=== PATIENT | female | born 1935 | race Caucasian/White ===

== ENCOUNTER 2018-04-24 07:39 | Observation (INO) | payer MEDICARE, OTHER, SELFPAY ==
[2018-04-24] VITALS (22 sets, daily range): BP systolic 72–128; BP diastolic 41–86; PULSE 67–140; RESP 15–25; TEMP 36.3–37.2; O2SAT 94–100; BMI 25.1
--- NOTE | 2018-04-24 07:53 | DI.RAD.S_ITS ---
PROCEDURE: XR CHEST 1V INDICATIONS: 82 year-old female with chest pain. TECHNIQUE: One view of the chest was acquired. COMPARISON: [facility], , CHEST 1 VIEW, 11/09/2017, 13:02. [facility], , CHEST 1 VIEW, 10/23/2017, 12:57. [facility], , CHEST 1 VIEW, 11/12/2013, 15:47. FINDINGS: Surgical changes and devices: None. Lungs and pleura: No pleural effusions or pneumothorax. Lungs are clear. Mediastinum: Mediastinal contours appear normal. Heart size is normal. Bones and chest wall: No suspicious bony lesions. Overlying soft tissues appear unremarkable. IMPRESSION: No acute cardiopulmonary disease. Dictated by: Contreras Yates M.D. on 04/24/2018 at 8:51 Approved by: Contreras Yates M.D. on 04/24/2018 at 8:52
--- NOTE | 2018-04-24 07:57 | ED.ARRPALP ---
HPI - Arrhythmia/Palpitations General Chief Complaint: Arrhythmia/Palpitations Stated Complaint: CHEST PAIN Time Seen by Provider: 04/24/18 07:47 Source: patient Mode of arrival: ambulatory Limitations: no limitations History of Present Illness HPI narrative: Patient is an 82-year-old female presenting with chest pain. She has a history of angina and atrial fibrillation. She is noted to be in AFib. She says it started last night around 11:00 p.m. she bent over and then felt a chest discomfort. she actually took the nitro was not really able to sleep she still has a headache from the nitro. And complaining of chest discomfort all lightheadedness. No real dizziness. She denies feeling palpitations. She denies any cough or fever no nausea or vomiting Related Data Home Medications Medication Instructions Recorded Confirmed etanercept [Enbrel] 50 mg SQ QWEEKTH #0 11/12/07 04/24/18 methotrexate sodium 6 tab PO QWEEKFR #0 11/12/07 04/24/18 cyclosporine [Restasis] 1 drp OPHTH Q12H #0 10/23/17 04/24/18 melatonin 3 mg PO HSP PRN #0 10/23/17 04/24/18 aspirin 81 mg PO DAILY 04/24/18 04/24/18 cholecalciferol (vitamin D3) 1,000 unit PO DAILY 04/24/18 04/24/18 [Vitamin D3] folic acid 1 mg PO DAILY 04/24/18 04/24/18 meloxicam [Mobic] 7.5 mg PO EVERY OTHER DAY PRN 04/24/18 04/24/18 metoprolol succinate 50 mg PO BID 04/24/18 04/24/18 multivitamin 1 tab PO DAILY 04/24/18 04/24/18 nitroglycerin [Nitrostat] 0.4 mg SUBLINGUAL Q5M PRN 04/24/18 04/24/18 Allergies Allergy/AdvReac Type Severity Reaction Status Date / Time No Known Drug Allergies Allergy Verified 04/24/18 07:56 Review of Systems Review of Systems All systems reviewed & are unremarkable except as noted in HPI and below Constitutional Denies chills, Denies fever(s), Denies lethargy and Denies weakness Cardiovascular Reports as per HPI, Reports system reviewed and no additional complaints, except as docu, Denies dyspnea and Denies dyspnea on exertion Respiratory Denies cough, Denies dyspnea, Denies dyspnea on exertion and Denies wheezing Gastrointestinal Gastrointestinal: Denies abdominal pain, Denies change in bowel habits, Denies diarrhea, Denies nausea and Denies vomiting Musculoskeletal Denies back pain, Denies muscle weakness, Denies numbness and Denies tingling Integumentary/Breasts Denies pruritus, Denies erythema, Denies rash and Denies wounds Neurologic Denies numbness, Denies tingling and Denies weakness Allergic/Immunologic Denies wheezing PENDING SALE TO [facility] Medical History Angina at rest (Acute) Atrial fibrillation (Acute) Social History Smoking Status: Never smoker Exam Initial Vital Signs Initial Vital Signs: Vital Signs Temperature 97.8 F 04/24/18 07:50 Pulse Rate 140 H 04/24/18 07:50 Respiratory Rate 24 04/24/18 07:50 Blood Pressure 85/46 L 04/24/18 07:50 Pulse Oximetry 95 04/24/18 07:50 Const General: cooperative, healthy appearing and frail appearing [facility] Head: normal to inspection and normocephalic Resp Effort & Inspection: normal respiratory effort, able to speak in complete sentences, no respiratory distress and no use of accessory muscles Auscultation: clear to auscultation bilaterally, no rales, no rhonchi and no wheezes Cardio Rhythm: abnormal rhythm GI Inspection: normal to inspection Palpation: soft, No guarding and No tender Percussion: normal to percussion Auscultation: normal bowel sounds Skin General: no rashes or lesions noted and elasticity normal Lesions: no lesions Rashes: no rashes Trauma: no lacerations or abrasions Neuro General: alert, awake and oriented x3 Cranial Nerves: CN's II-XI intact bilaterally Procedures Procedural Sedation Indication: cardioversion ASA Class: I Preparation: operating room tech applied, pulse oximeter, capnometry used, supplemental O2 applied, suction/airway equipment at bedside and IV secured Ketamine: IV Ketamine dose (mg): 75 Time of Sedation (Min): 15 ED Sedation Level: Moderate (Concious) Patient Tolerated Procedure: Well Complications: none Course Hospital Course: PROCEDURE: electric cardioversion REASON FOR PROCEDURE: atrial fibrillation and hypotension PROCEDURE IN DETAIL: The procedure was explained to the patient with risks and benefits including risk of stroke. The patient understands. The pads applied in the anterior and posterior approach. With synchronized biphasic waveform at 100J, one shock was successful in restoring sinus rhythm, patient's heart rate immediately decreased to about 70's, blood pressure improved to a systolic 25. The patient had no immediate post-procedure complications. The rhythm was maintained and 12-lead EKG was requested. IMPRESSION: Successful cardioversion with scientologist of sinus rhythm from atrial fibrillation no immediate complication Orders Ordered: ED Orders 04/24/18 07:45 Complete Blood Count AUTO DIFF Stat Comprehensive Metabolic Panel Stat Magnesium Stat Partial Thromboplastin Time Stat Prothrombin Time INR Stat Troponin with CK Cardiac Panel Stat 04/24/18 07:53 XR chest 1V Stat EKG-12 Lead Stat 04/24/18 12:08 Education, smoking cessation ONGOING 04/24/18 12:09 MRSA PCR Stat 04/24/18 16:00 Troponin I Urgent 04/25/18 05:00 Complete Blood Count AUTO DIFF Routine Acetaminophen (Tylenol) 650 mg PO Q6HR PRN PRN Reason: As Needed for Fever/Mild Pain Al Hydrox/Mg Hydrox/Simethicone (Maalox Plus) 30 ml PO Q6HR PRN PRN Reason: Dyspepsia Aspirin (Aspirin Ec) 81 mg PO DAILY [facility] Enoxaparin Sodium (Lovenox) 50 mg 1 mg/kg (50 mg) SUBCUT Q12HR KAILEE Folic Acid (Folic Acid) 1 mg PO DAILY [facility] Sodium Chloride (Normal Saline 0.9%) 1,000 mls @ 100 mls/hr IV CONT KAILEE Stop: 05/24/18 17:59 Last Infusion: 04/24/18 10:44 Dose: 0 mls/hr Admin: 04/24/18 08:05 Dose: 150 mls/hr Magnesium Hydroxide (Milk Of Magnesia) 30 ml PO DAILY PRN PRN Reason: Constipation Melatonin (Melatonin) 3 mg PO BEDTIME PRN PRN Reason: sleep Metoprolol Succinate (Toprol Xl) 50 mg PO BID KAILEE Stored In Pharmacy 0 each PO PRN PRN PRN Reason: POLICY Discontinued Medications Acetaminophen (Tylenol) 650 mg PO NOW ONE Stop: 04/24/18 08:32 Last Admin: 04/24/18 08:33 Dose: 650 mg Diltiazem HCl (Cardizem) 10 mg IV NOW ONE Stop: 04/24/18 07:56 Last Admin: 04/24/18 08:06 Dose: 10 mg Etomidate (Amidate) 5 mg 0.1 mg/kg (5 mg) IV NOW ONE Stop: 04/24/18 09:40 Last Admin: 04/24/18 10:35 Dose: Not Given Ketamine HCl (Ketalar) 75 mg IV NOW ONE Stop: 04/24/18 09:43 Last Admin: 04/24/18 09:45 Dose: 75 mg Reevaluation(s) Reevaluation #1: Dr. Frank in ED for evaluation and admission. Will go to ICU Vital Signs - 8 hr 04/24/18 07:50 04/24/18 08:06 04/24/18 08:16 Temperature 97.8 F Pulse Rate 140 H 116 H 72 Respiratory Rate 24 16 Blood Pressure 85/46 L 99/57 L Blood Pressure [Right Arm] 72/49 L Pulse Oximetry 95 97 04/24/18 08:21 04/24/18 08:33 04/24/18 08:46 Temperature Pulse Rate 67 67 67 Respiratory Rate 15 16 Blood Pressure Blood Pressure [Right Arm] 83/57 L 87/43 L 91/53 L Pulse Oximetry 96 95 04/24/18 09:07 04/24/18 09:40 04/24/18 09:57 Temperature Pulse Rate 89 89 Respiratory Rate 17 18 Blood Pressure Blood Pressure [Right Arm] 96/47 L 90/48 L 128/86 H Pulse Oximetry 94 98 98 04/24/18 10:00 04/24/18 10:06 04/24/18 10:14 Temperature Pulse Rate 93 H 89 82 Respiratory Rate 18 21 22 Blood Pressure Blood Pressure [Right Arm] 125/71 H 107/59 L 103/53 L Pulse Oximetry 98 98 97 04/24/18 10:20 04/24/18 10:33 04/24/18 11:01 Temperature Pulse Rate 80 80 81 Respiratory Rate 19 18 15 Blood Pressure Blood Pressure [Right Arm] 89/49 L 83/46 L 83/51 L Pulse Oximetry 97 96 99 04/24/18 11:21 04/24/18 11:39 Temperature Pulse Rate 77 102 H Respiratory Rate 16 18 Blood Pressure 82/52 L Blood Pressure [Right Arm] 77/41 L Pulse Oximetry 100 100 MDM - Arrhythmia/Palpitations Differential Diagnosis Differential diagnosis: Likely palpitations, sinus tachycardia, artial fibrillation and artial flutter Medical Records Attestation: I reviewed the patient's medical records. Lab Data Attestation: I reviewed the patient's lab results. Result diagrams: 04/24/18 07:45 04/24/18 07:45 Lab Results 04/24/18 04/24/18 04/24/18 Range/Units 07:45 07:45 07:45 WBC 17.5 H (4.5-11.0) X10^3/uL RBC 4.32 (4.0-5.2) X10^6/uL Hgb 12.8 (12.0-16.0) g/dL Hct 38.7 (36-46) % MCV 89.6 (80-100) fL MCH 29.6 (26-34) PG MCHC 33.1 (30-36) % RDW 17.3 H (11.6-14.8) % Plt Count 186 (150-400) X10^3/uL Neut % (Auto) 87.5 H (50-75) % Lymph % (Auto) 5.9 L (25-40) % Colbert % (Auto) 6.1 (3-14) % Eos % (Auto) 0.1 L (2-4) % Baso % (Auto) 0.4 (0-2) % Neut # (Auto) 91609 H (5347-4938) /uL PT 12.2 (10.1-12.7) SECONDS INR 1.1 (0.9-1.3) APTT 32 (26.4-36.2) SECONDS Sodium 141 (137-145) mmol/L Potassium 4.0 (3.4-5.1) mmol/L Chloride 103 (98-107) mmol/L Carbon Dioxide 25 (22-32) mmol/L BUN 16 (7-17) mg/dL Creatinine 0.70 (0.52-1.04) mg/dL Estimated GFR > 60.0 (>60) mL/min BUN/Creatinine Ratio 22.9 H (6-22) Glucose 154 H (80-110) mg/dL Calcium 9.1 (8.4-10.2) mg/dL Magnesium 1.8 (1.6-2.3) mg/dL Total Bilirubin 0.9 (0.2-1.3) mg/dL AST 35 (14-36) IU/L ALT 27 (9-52) IU/L Alkaline Phosphatase 72 (38-126) U/L Total Creatine Kinase 30 (30-135) U/L Troponin I < 0.012 (0.01-0.034) ng/mL Total Protein 7.4 (6.3-8.2) g/dL Albumin 4.2 (3.5-5.0) g/dL Globulin 3.2 (1.7-4.1) g/dL Albumin/Globulin Ratio 1.3 (1.0-2.8) Imaging Data Chest x-ray: Attestation: I personally reviewed and interpreted this imaging study as follows: Radiologist's impression: PROCEDURE: XR CHEST 1V INDICATIONS: 82 year-old female with chest pain. TECHNIQUE: One view of the chest was acquired. COMPARISON: [facility], CHEST 1 VIEW, 11/09/2017, 13:02. [facility], CHEST 1 VIEW, 10/23/2017, 12:57. [facility], CHEST 1 VIEW, 11/12/2013, 15:47. FINDINGS: Surgical changes and devices: None. Lungs and pleura: No pleural effusions or pneumothorax. Lungs are clear. Mediastinum: Mediastinal contours appear normal. Heart size is normal. Bones and chest wall: No suspicious bony lesions. Overlying soft tissues appear unremarkable. IMPRESSION: No acute cardiopulmonary disease. Dictated by: Contreras Yates M.D. on 04/24/2018 at 8:51 ECG Data Attestation: I personally reviewed and interpreted this ECG as follows: Prior ECG tracings: available for review Interpretation: EKG 1. AFib rate 118 no acute ischemia previous EKGs show sinus rhythm though she does have a history of AFib EKG 2. AFib rate [address] changes EKG 3. Sinus a rhythm me a rate [address] changes And 2 EKG 4. Irregular rhythm AFib rate 108 MDM Narrative Medical decision making narrative: Patient initially was having chest discomfort with AFib with and hypotension. She continued to have chest discomfort and AFib despite Cardizem and IV fluids. Decision made to cardiovert. Blood pressure initially a improved likely with ketamine in a sinus rhythm. However her heart rate remains irregular and blood pressure still is low. She is given IV fluids. She will be admitted for further evaluation. She is not hypoxic room playing of shortness of breath. A PE is considered discuss this with the admitting physician. At this time no need for CT will re-evaluate. Discharge Plan Departure Patient Disposition: Admitted as Observation Clinical Impression: Atrial fibrillation, Acute hypotension Discharge Date/Time: 04/24/18 11:57 Interventions: ED Discharge Assessment Last Done: 04/24/18 11:39 Admit Date/Time: 04/24/18 11:30 Admit Provider: Jad Frank
[2018-04-24 08:04] LABS: INR 1.1 (0.9-1.3); Prothrombin Time 12.2 SECONDS (10.1-12.7)
[2018-04-24] MEDS: SODIUM CHLORIDE 0.9% 1,000 ML 150 ML IV (08:05)
[2018-04-24] MEDS: dilTIAZem 25 MG/5 ML SDV 10 MG IV (08:06)
[2018-04-24 08:07] LABS: PTT Partial Thromboplastin Tim 32 SECONDS (26.4-36.2)
[2018-04-24 08:09] LABS: Add Manual Diff / Slide Review NO; Alanine Aminotransferase 27 IU/L (9-52); Albumin 4.2 g/dL (3.5-5.0); Albumin Globulin Ratio 1.3 (1.0-2.8); Alkaline Phosphatase 72 U/L (38-126); Aspartate Aminotransferase 35 IU/L (14-36); BUN Creatinine Ratio 22.9 (6-22); Basophils Percent Auto 0.4 % (0-2); Bilirubin Total 0.9 mg/dL (0.2-1.3); Blood Urea Nitrogen 16 mg/dL (7-17); Calcium 9.1 mg/dL (8.4-10.2); Carbon Dioxide 25 mmol/L (22-32); Chloride 103 mmol/L (98-107); Creatine Kinase 30 U/L (30-135); Eosinophils Percent Auto 0.1 % (2-4); Estimated Glomerular Filt Rate > 60.0 mL/min (>60); Globulin 3.2 g/dL (1.7-4.1); Glucose 154 mg/dL (80-110); HEMOLYSIS 35 (0-50); Hematocrit 38.7 % (36-46); Hemoglobin 12.8 g/dL (12.0-16.0); Lymphocytes Percent Auto 5.9 % (25-40); Magnesium 1.8 mg/dL (1.6-2.3); Mean Corpuscular HGB Conc 33.1 % (30-36); Mean Corpuscular Hemoglobin 29.6 PG (26-34); Mean Corpuscular Volume 89.6 fL (80-100); Monocytes Percent Auto 6.1 % (3-14); Neutrophils Absolute Auto 15300 /uL (3000-5900); Neutrophils Percent Auto 87.5 % (50-75); Platelet Count 186 X10^3/uL (150-400); Red Blood Cell Count 4.32 X10^6/uL (4.0-5.2); Red Cell Distribution Width 17.3 % (11.6-14.8); Sodium 141 mmol/L (137-145); Total Protein 7.4 g/dL (6.3-8.2); White Blood Cell Count 17.5 X10^3/uL (4.5-11.0)
[2018-04-24 08:26] LABS: Troponin I < 0.012 ng/mL (0.01-0.034)
[2018-04-24] MEDS: ACETAMINOPHEN 325 MG TABLET 650 MG PO ×3 (08:33→19:46)
--- NOTE | 2018-04-24 09:02 | ED_ITS ---
HPI - Arrhythmia/Palpitations General Chief Complaint: Arrhythmia/Palpitations Stated Complaint: CHEST PAIN Time Seen by Provider: 04/24/18 07:47 Source: patient Mode of arrival: ambulatory Limitations: no limitations History of Present Illness HPI narrative: Patient is an 82-year-old female presenting with chest pain. She has a history of angina and atrial fibrillation. She is noted to be in AFib. She says it started last night around 11:00 p.m. she bent over and then felt a chest discomfort. she actually took the nitro was not really able to sleep she still has a headache from the nitro. And complaining of chest discomfort all lightheadedness. No real dizziness. She denies feeling palpitations. She denies any cough or fever no nausea or vomiting Related Data Home Medications Medication Instructions Recorded Confirmed etanercept [Enbrel] 50 mg SQ QWEEKTH #0 11/12/07 04/24/18 methotrexate sodium 6 tab PO QWEEKFR #0 11/12/07 04/24/18 cyclosporine [Restasis] 1 drp OPHTH Q12H #0 10/23/17 04/24/18 melatonin 3 mg PO HSP PRN #0 10/23/17 04/24/18 aspirin 81 mg PO DAILY 04/24/18 04/24/18 cholecalciferol (vitamin D3) 1,000 unit PO DAILY 04/24/18 04/24/18 [Vitamin D3] folic acid 1 mg PO DAILY 04/24/18 04/24/18 meloxicam [Mobic] 7.5 mg PO EVERY OTHER DAY PRN 04/24/18 04/24/18 metoprolol succinate 50 mg PO BID 04/24/18 04/24/18 multivitamin 1 tab PO DAILY 04/24/18 04/24/18 nitroglycerin [Nitrostat] 0.4 mg SUBLINGUAL Q5M PRN 04/24/18 04/24/18 Allergies Allergy/AdvReac Type Severity Reaction Status Date / Time No Known Drug Allergies Allergy Verified 04/24/18 07:56 Review of Systems Review of Systems All systems reviewed & are unremarkable except as noted in HPI and below Constitutional Denies chills, Denies fever(s), Denies lethargy and Denies weakness Cardiovascular Reports as per HPI, Reports system reviewed and no additional complaints, except as docu, Denies dyspnea and Denies dyspnea on exertion Respiratory Denies cough, Denies dyspnea, Denies dyspnea on exertion and Denies wheezing Gastrointestinal Gastrointestinal: Denies abdominal pain, Denies change in bowel habits, Denies diarrhea, Denies nausea and Denies vomiting Musculoskeletal Denies back pain, Denies muscle weakness, Denies numbness and Denies tingling Integumentary/Breasts Denies pruritus, Denies erythema, Denies rash and Denies wounds Neurologic Denies numbness, Denies tingling and Denies weakness Allergic/Immunologic Denies wheezing PENDING SALE TO [facility] Medical History Angina at rest (Acute) Atrial fibrillation (Acute) Social History Smoking Status: Never smoker Exam Initial Vital Signs Initial Vital Signs: Vital Signs Temperature 97.8 F 04/24/18 07:50 Pulse Rate 140 H 04/24/18 07:50 Respiratory Rate 24 04/24/18 07:50 Blood Pressure 85/46 L 04/24/18 07:50 Pulse Oximetry 95 04/24/18 07:50 Const General: cooperative, healthy appearing and frail appearing [facility] Head: normal to inspection and normocephalic Resp Effort & Inspection: normal respiratory effort, able to speak in complete sentences, no respiratory distress and no use of accessory muscles Auscultation: clear to auscultation bilaterally, no rales, no rhonchi and no wheezes Cardio Rhythm: abnormal rhythm GI Inspection: normal to inspection Palpation: soft, No guarding and No tender Percussion: normal to percussion Auscultation: normal bowel sounds Skin General: no rashes or lesions noted and elasticity normal Lesions: no lesions Rashes: no rashes Trauma: no lacerations or abrasions Neuro General: alert, awake and oriented x3 Cranial Nerves: CN's II-XI intact bilaterally Procedures Procedural Sedation Indication: cardioversion ASA Class: I Preparation: panel monitor applied, pulse oximeter, capnometry used, supplemental O2 applied, suction/airway equipment at bedside and IV secured Ketamine: IV Ketamine dose (mg): 75 Time of Sedation (Min): 15 ED Sedation Level: Moderate (Concious) Patient Tolerated Procedure: Well Complications: none Course Hospital Course: PROCEDURE: electric cardioversion REASON FOR PROCEDURE: atrial fibrillation and hypotension PROCEDURE IN DETAIL: The procedure was explained to the patient with risks and benefits including risk of stroke. The patient understands. The pads applied in the anterior and posterior approach. With synchronized biphasic waveform at 100J , one shock was successful in restoring sinus rhythm, patient's heart rate immediately decreased to about 70's, blood pressure improved to a systolic 25. The patient had no immediate post-procedure complications. The rhythm was maintained and 12-lead EKG was requested. IMPRESSION: Successful cardioversion with amish of sinus rhythm from atrial fibrillation no immediate complication Orders Ordered: ED Orders 04/24/18 07:45 Complete Blood Count AUTO DIFF Stat Comprehensive Metabolic Panel Stat Magnesium Stat Partial Thromboplastin Time Stat Prothrombin Time INR Stat Troponin with CK Cardiac Panel Stat 04/24/18 07:53 XR chest 1V Stat EKG-12 Lead Stat 04/24/18 12:08 Education, smoking cessation ONGOING 04/24/18 12:09 MRSA PCR Stat 04/24/18 16:00 Troponin I Urgent 04/25/18 05:00 Complete Blood Count AUTO DIFF Routine Acetaminophen (Tylenol) 650 mg PO Q6HR PRN PRN Reason: As Needed for Fever/Mild Pain Al Hydrox/Mg Hydrox/Simethicone (Maalox Plus) 30 ml PO Q6HR PRN PRN Reason: Dyspepsia Aspirin (Aspirin Ec) 81 mg PO DAILY [facility] Enoxaparin Sodium (Lovenox) 50 mg 1 mg/kg (50 mg) SUBCUT Q12HR KAILEE Folic Acid (Folic Acid) 1 mg PO DAILY [facility] Sodium Chloride (Normal Saline 0.9%) 1,000 mls @ 100 mls/hr IV CONT KAILEE Stop: 05/24/18 17:59 Last Infusion: 04/24/18 10:44 Dose: 0 mls/hr Admin: 04/24/18 08:05 Dose: 150 mls/hr Magnesium Hydroxide (Milk Of Magnesia) 30 ml PO DAILY PRN PRN Reason: Constipation Melatonin (Melatonin) 3 mg PO BEDTIME PRN PRN Reason: sleep Metoprolol Succinate (Toprol Xl) 50 mg PO BID KAILEE Stored In Pharmacy 0 each PO PRN PRN PRN Reason: POLICY Discontinued Medications Acetaminophen (Tylenol) 650 mg PO NOW ONE Stop: 04/24/18 08:32 Last Admin: 04/24/18 08:33 Dose: 650 mg Diltiazem HCl (Cardizem) 10 mg IV NOW ONE Stop: 04/24/18 07:56 Last Admin: 04/24/18 08:06 Dose: 10 mg Etomidate (Amidate) 5 mg 0.1 mg/kg (5 mg) IV NOW ONE Stop: 04/24/18 09:40 Last Admin: 04/24/18 10:35 Dose: Not Given Ketamine HCl (Ketalar) 75 mg IV NOW ONE Stop: 04/24/18 09:43 Last Admin: 04/24/18 09:45 Dose: 75 mg Reevaluation(s) Reevaluation #1: Dr. rFank in ED for evaluation and admission. Will go to ICU Vital Signs - 8 hr 04/24/18 07:50 04/24/18 08:06 04/24/18 08:16 Temperature 97.8 F Pulse Rate 140 H 116 H 72 Respiratory Rate 24 16 Blood Pressure 85/46 L 99/57 L Blood Pressure [Right Arm] 72/49 L Pulse Oximetry 95 97 04/24/18 08:21 04/24/18 08:33 04/24/18 08:46 Temperature Pulse Rate 67 67 67 Respiratory Rate 15 16 Blood Pressure Blood Pressure [Right Arm] 83/57 L 87/43 L 91/53 L Pulse Oximetry 96 95 04/24/18 09:07 04/24/18 09:40 04/24/18 09:57 Temperature Pulse Rate 89 89 Respiratory Rate 17 18 Blood Pressure Blood Pressure [Right Arm] 96/47 L 90/48 L 128/86 H Pulse Oximetry 94 98 98 04/24/18 10:00 04/24/18 10:06 04/24/18 10:14 Temperature Pulse Rate 93 H 89 82 Respiratory Rate 18 21 22 Blood Pressure Blood Pressure [Right Arm] 125/71 H 107/59 L 103/53 L Pulse Oximetry 98 98 97 04/24/18 10:20 04/24/18 10:33 04/24/18 11:01 Temperature Pulse Rate 80 80 81 Respiratory Rate 19 18 15 Blood Pressure Blood Pressure [Right Arm] 89/49 L 83/46 L 83/51 L Pulse Oximetry 97 96 99 04/24/18 11:21 04/24/18 11:39 Temperature Pulse Rate 77 102 H Respiratory Rate 16 18 Blood Pressure 82/52 L Blood Pressure [Right Arm] 77/41 L Pulse Oximetry 100 100 MDM - Arrhythmia/Palpitations Differential Diagnosis Differential diagnosis: Likely palpitations, sinus tachycardia, artial fibrillation and artial flutter Medical Records Attestation: I reviewed the patient's medical records. Lab Data Attestation: I reviewed the patient's lab results. Result diagrams: 04/24/18 07:45 04/24/18 07:45 Lab Results 04/24/18 04/24/18 04/24/18 Range/Units 07:45 07:45 07:45 WBC 17.5 H (4.5-11.0) X10^3/uL RBC 4.32 (4.0-5.2) X10^6/uL Hgb 12.8 (12.0-16.0) g/dL Hct 38.7 (36-46) % MCV 89.6 (80-100) fL MCH 29.6 (26-34) PG MCHC 33.1 (30-36) % RDW 17.3 H (11.6-14.8) % Plt Count 186 (150-400) X10^3/uL Neut % (Auto) 87.5 H (50-75) % Lymph % (Auto) 5.9 L (25-40) % Bowie % (Auto) 6.1 (3-14) % Eos % (Auto) 0.1 L (2-4) % Baso % (Auto) 0.4 (0-2) % Neut # (Auto) 94097 H (7627-6422) /uL PT 12.2 (10.1-12.7) SECONDS INR 1.1 (0.9-1.3) APTT 32 (26.4-36.2) SECONDS Sodium 141 (137-145) mmol/L Potassium 4.0 (3.4-5.1) mmol/L Chloride 103 (98-107) mmol/L Carbon Dioxide 25 (22-32) mmol/L BUN 16 (7-17) mg/dL Creatinine 0.70 (0.52-1.04) mg/dL Estimated GFR > 60.0 (>60) mL/min BUN/Creatinine Ratio 22.9 H (6-22) Glucose 154 H (80-110) mg/dL Calcium 9.1 (8.4-10.2) mg/dL Magnesium 1.8 (1.6-2.3) mg/dL Total Bilirubin 0.9 (0.2-1.3) mg/dL AST 35 (14-36) IU/L ALT 27 (9-52) IU/L Alkaline Phosphatase 72 (38-126) U/L Total Creatine Kinase 30 (30-135) U/L Troponin I < 0.012 (0.01-0.034) ng/mL Total Protein 7.4 (6.3-8.2) g/dL Albumin 4.2 (3.5-5.0) g/dL Globulin 3.2 (1.7-4.1) g/dL Albumin/Globulin Ratio 1.3 (1.0-2.8) Imaging Data Chest x-ray: Attestation: I personally reviewed and interpreted this imaging study as follows: Radiologist's impression: PROCEDURE: XR CHEST 1V INDICATIONS: 82 year-old female with chest pain. TECHNIQUE: One view of the chest was acquired. COMPARISON: [facility], CHEST 1 VIEW, 11/09/2017, 13:02. [facility], CHEST 1 VIEW, 10/23/2017, 12:57. [facility], CHEST 1 VIEW, 11/12/2013 , 15:47. FINDINGS: Surgical changes and devices: None. Lungs and pleura: No pleural effusions or pneumothorax. Lungs are clear. Mediastinum: Mediastinal contours appear normal. Heart size is normal. Bones and chest wall: No suspicious bony lesions. Overlying soft tissues appear unremarkable. IMPRESSION: No acute cardiopulmonary disease. Dictated by: Contreras Yates M.D. on 04/24/2018 at 8:51 ECG Data Attestation: I personally reviewed and interpreted this ECG as follows: Prior ECG tracings: available for review Interpretation: EKG 1. AFib rate 118 no acute ischemia previous EKGs show sinus rhythm though she does have a history of AFib EKG 2. AFib rate [address] changes EKG 3. Sinus a rhythm me a rate [address] changes And 2 EKG 4. Irregular rhythm AFib rate 108 MDM Narrative Medical decision making narrative: Patient initially was having chest discomfort with AFib with and hypotension. She continued to have chest discomfort and AFib despite Cardizem and IV fluids. Decision made to cardiovert. Blood pressure initially a improved likely with ketamine in a sinus rhythm. However her heart rate remains irregular and blood pressure still is low. She is given IV fluids. She will be admitted for further evaluation. She is not hypoxic room playing of shortness of breath. A PE is considered discuss this with the admitting physician. At this time no need for CT will re- evaluate. Discharge Plan Departure Patient Disposition: Admitted as Observation Clinical Impression: Atrial fibrillation, Acute hypotension Discharge Date/Time: 04/24/18 11:57 Interventions: ED Discharge Assessment Last Done: 04/24/18 11:39 Admit Date/Time: 04/24/18 11:30 Admit Provider: Jad Frank
[2018-04-24] MEDS: KETAMINE 500 MG/10 ML INJ 75 MG IV (09:45)
[2018-04-24] MEDS: ENOXAPARIN 60 MG/0.6 ML SYRINGE 50 MG SUBCUT (13:25)
--- NOTE | 2018-04-24 15:12 | PM.HP.1 ---
History of Present Illness Chief complaint: Atrial fibrillation, Acute hypotension Narrative: Nola Garcia is a 82 year old female patient of Dr. Evaristo Obregon with history of paroxysmal atrial fibrillation presented to emergency department with chest pain. She states chest pain started around 11:00 p.m. last night as she bent over. She took 2 tablets of nitroglycerin without real relief. She had pain in her neck or back during much of the night with little sleep. This morning she had more pain in her chest. On a ER presentation she was noted to be in atrial fibrillation with RVR and also hypertensive with systolic blood pressure in the 70s. She had cardioversion in the ER with conversion to sinus rhythm. Subsequently her blood pressure remained low in the 80 systolic but eventually up to 90 systolic after 2 L normal saline. Patient denies fevers, cough, shortness of breath, chills, abdominal pain, urinary symptoms. She has had prior evaluation for chest pain including myocardial perfusion stress test in October 2017 which was read as normal. Security System Administrator did not think pain was due to occlusive coronary artery disease. Patient states she gets atrial fibrillation episodes only occasionally, manifested by palpitations, which last brief periods of time. Patient History Medical History Atrial fibrillation (Acute) H/O: hysterectomy (Acute) 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) Hypertension (Acute) Rheumatoid arthritis (Acute) Surgical History History of total right knee replacement (Acute) Family & Social History Family History: Reviewed 04/24/18 by Jad Frank MD Social History: household members spouse Prior Living Arrangements House Safety & Behavioral: Feels Safe in Current Yes Environment Been Physically Hurt or No Threatened By a Person Suicidal Ideation Description None Suicide Plan Description No Plan Tobacco & Substance use: Smoking Status Never smoker alcohol intake frequency holiday/special occasion Substance Use Type does not use Meds Home Medications Medication Instructions Recorded Confirmed Type etanercept [Enbrel] 50 mg SQ QWEEKTH #0 11/12/07 04/24/18 History methotrexate sodium 6 tab PO QWEEKFR #0 11/12/07 04/24/18 History cyclosporine [Restasis] 1 drp OPHTH Q12H #0 10/23/17 04/24/18 History melatonin 3 mg PO HSP PRN #0 10/23/17 04/24/18 History aspirin 81 mg PO DAILY 04/24/18 04/24/18 History cholecalciferol (vitamin D3) 1,000 unit PO DAILY 04/24/18 04/24/18 History [Vitamin D3] folic acid 1 mg PO DAILY 04/24/18 04/24/18 History meloxicam [Mobic] 7.5 mg PO EVERY OTHER DAY PRN 04/24/18 04/24/18 History metoprolol succinate 50 mg PO BID 04/24/18 04/24/18 History multivitamin 1 tab PO DAILY 04/24/18 04/24/18 History nitroglycerin [Nitrostat] 0.4 mg SUBLINGUAL Q5M PRN 04/24/18 04/24/18 History Allergies Allergy/AdvReac Type Severity Reaction Status Date / Time No Known Drug Allergies Allergy Verified 04/24/18 07:56 Review of Systems Review of Systems All systems reviewed & are unremarkable except as noted in HPI and below Exam Vital Signs (past 8 hours): Vital Signs - 8 hr 04/24/18 07:50 04/24/18 08:06 04/24/18 08:16 Temperature 97.8 F Pulse Rate 140 H 116 H 72 Respiratory Rate 24 16 Blood Pressure 85/46 L 99/57 L Blood Pressure [Right Arm] 72/49 L Pulse Oximetry 95 97 04/24/18 08:21 04/24/18 08:33 04/24/18 08:46 Temperature Pulse Rate 67 67 67 Respiratory Rate 15 16 Blood Pressure Blood Pressure [Right Arm] 83/57 L 87/43 L 91/53 L Pulse Oximetry 96 95 04/24/18 09:07 04/24/18 09:40 04/24/18 09:57 Temperature Pulse Rate 89 89 Respiratory Rate 17 18 Blood Pressure Blood Pressure [Right Arm] 96/47 L 90/48 L 128/86 H Pulse Oximetry 94 98 98 04/24/18 10:00 04/24/18 10:06 04/24/18 10:14 Temperature Pulse Rate 93 H 89 82 Respiratory Rate 18 21 22 Blood Pressure Blood Pressure [Right Arm] 125/71 H 107/59 L 103/53 L Pulse Oximetry 98 98 97 04/24/18 10:20 04/24/18 10:33 05/29/18 11:01 Temperature Pulse Rate 80 80 81 Respiratory Rate 19 18 15 Blood Pressure Blood Pressure [Right Arm] 89/49 L 83/46 L 83/51 L Pulse Oximetry 97 96 99 04/24/18 11:21 04/24/18 11:39 04/24/18 12:35 Temperature 99 F Pulse Rate 77 102 H 78 Respiratory Rate 16 18 15 Blood Pressure 82/52 L 97/44 L Blood Pressure [Right Arm] 77/41 L Pulse Oximetry 100 100 94 Pulse Oximetry 94 Oxygen Delivery Method Room Air Oxygen Flow Rate 0 Narrative Exam Narrative: GENERAL: This is an alert female currently in no acute distress HEAD: Atraumatic. Normocephalic. EYES: Pupils equal, round and reactive. Extraocular motions intact. No scleral icterus. No injection or drainage. OROPHARYNX: moist mucosa NECK: Trachea midline. No JVD or lymphadenopathy. CARDIOVASCULAR: Regular rate and rhythm without murmurs, gallops, or rubs. RESPIRATORY: Clear to auscultation bilaterally. GASTROINTESTINAL: Abdomen nondistended, soft, non-tender. No hepato-splenomegaly, or palpable masses. EXTREMITIES: No edema. NEUROLOGICAL: Alert, well oriented, speech is intact, normal bilateral upper and lower extremity strength SKIN: warm, dry, no rash Objective Labs Result Diagrams: 04/24/18 07:45 04/24/18 07:45 Labs: Laboratory Results - last 24 hr 04/24/18 04/24/18 04/24/18 07:45 07:45 07:45 WBC 17.5 H RBC 4.32 Hgb 12.8 Hct 38.7 MCV 89.6 MCH 29.6 MCHC 33.1 RDW 17.3 H Plt Count 186 Neut % (Auto) 87.5 H Lymph % (Auto) 5.9 L [place] % (Auto) 6.1 Eos % (Auto) 0.1 L Baso % (Auto) 0.4 Neut # (Auto) 86722 H PT 12.2 INR 1.1 APTT 32 Sodium 141 Potassium 4.0 Chloride 103 Carbon Dioxide 25 BUN 16 Creatinine 0.70 Estimated GFR > 60.0 BUN/Creatinine Ratio 22.9 H Glucose 154 H Calcium 9.1 Magnesium 1.8 Total Bilirubin 0.9 AST 35 ALT 27 Alkaline Phosphatase 72 Total Creatine Kinase 30 Troponin I < 0.012 Total Protein 7.4 Albumin 4.2 Globulin 3.2 Albumin/Globulin Ratio 1.3 Nasal Screen MRSA (PCR) 04/24/18 12:09 WBC RBC Hgb Hct MCV MCH MCHC RDW Plt Count Neut % (Auto) Lymph % (Auto) [place] % (Auto) Eos % (Auto) Baso % (Auto) Neut # (Auto) PT INR APTT Sodium Potassium Chloride Carbon Dioxide BUN Creatinine Estimated GFR BUN/Creatinine Ratio Glucose Calcium Magnesium Total Bilirubin AST ALT Alkaline Phosphatase Total Creatine Kinase Troponin I Total Protein Albumin Globulin Albumin/Globulin Ratio Nasal Screen MRSA (PCR) Negative for mrsa Chest x-ray: No acute cardiopulmonary disease EKG 1: Atrial fibrillation with RVR, no ST or T-wave changes EKG 2.: Sinus rhythm, no ST or T-wave changes Assessment & Plan Plan: Plan: 1. Paroxysmal atrial fibrillation with RVR: Patient presented symptomatic with chest pain and hypotension. She was successfully cardioverted in the ER. She had persistent hypotension which is responding to IV fluids. Continue telemetry monitoring and IV fluids at 100 cc/hour. Previous echo with normal LV function and no significant valvular disease. 2. Chest pain: Patient has history of noncardiac chest pain with a normal myocardial perfusion stress test in October 2017. On the floor she has continued to have some intermittent chest pain without EKG changes. It is nonpleuritic. Repeat troponin ordered for 4:00 p.m.. Cardiac or pulmonary embolism source seems highly unlikely. 3. Acute leukocytosis: WBC 17 K. There is no obvious symptoms or source of infection. This is more likely acute stress reaction. Repeat CBC ordered for a.m.. 4. Disposition: Observation status. Quality VTE Deep Vein Thrombosis/Pulmonary Embolism Present on Admission: No
--- NOTE | 2018-04-24 15:15 | P.HP_ITS ---
History of Present Illness Chief complaint: Atrial fibrillation, Acute hypotension Narrative: Nola Garcia is a 82 year old female patient of Dr. Evaristo Obregon with history of paroxysmal atrial fibrillation presented to emergency department with chest pain. She states chest pain started around 11:00 p.m. last night as she bent over. She took 2 tablets of nitroglycerin without real relief. She had pain in her neck or back during much of the night with little sleep. This morning she had more pain in her chest. On a ER presentation she was noted to be in atrial fibrillation with RVR and also hypertensive with systolic blood pressure in the 70s. She had cardioversion in the ER with conversion to sinus rhythm. Subsequently her blood pressure remained low in the 80 systolic but eventually up to 90 systolic after 2 L normal saline. Patient denies fevers, cough, shortness of breath, chills, abdominal pain, urinary symptoms. She has had prior evaluation for chest pain including myocardial perfusion stress test in October 2017 which was read as normal. Repair Order Clerk did not think pain was due to occlusive coronary artery disease. Patient states she gets atrial fibrillation episodes only occasionally, manifested by palpitations , which last brief periods of time. Patient History Medical History Atrial fibrillation (Acute) H/O: hysterectomy (Acute) 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) Hypertension (Acute) Rheumatoid arthritis (Acute) Surgical History History of total right knee replacement (Acute) Family & Social History Family History: Reviewed 04/24/18 by Jad Frank MD Social History: household members spouse Prior Living Arrangements House Safety & Behavioral: Feels Safe in Current Yes Environment Been Physically Hurt or No Threatened By a Person Suicidal Ideation Description None Suicide Plan Description No Plan Tobacco & Substance use: Smoking Status Never smoker alcohol intake frequency holiday/special occasion Substance Use Type does not use Meds Home Medications Medication Instructions Recorded Confirmed Type etanercept [Enbrel] 50 mg SQ QWEEKTH #0 11/12/07 04/24/18 History methotrexate sodium 6 tab PO QWEEKFR #0 11/12/07 04/24/18 History cyclosporine [Restasis] 1 drp OPHTH Q12H #0 10/23/17 04/24/18 History melatonin 3 mg PO HSP PRN #0 10/23/17 04/24/18 History aspirin 81 mg PO DAILY 04/24/18 04/24/18 History cholecalciferol (vitamin D3) 1,000 unit PO DAILY 04/24/18 04/24/18 History [Vitamin D3] folic acid 1 mg PO DAILY 04/24/18 04/24/18 History meloxicam [Mobic] 7.5 mg PO EVERY OTHER DAY PRN 04/24/18 04/24/18 History metoprolol succinate 50 mg PO BID 04/24/18 04/24/18 History multivitamin 1 tab PO DAILY 04/24/18 04/24/18 History nitroglycerin [Nitrostat] 0.4 mg SUBLINGUAL Q5M PRN 04/24/18 04/24/18 History Allergies Allergy/AdvReac Type Severity Reaction Status Date / Time No Known Drug Allergies Allergy Verified 04/24/18 07:56 Review of Systems Review of Systems All systems reviewed & are unremarkable except as noted in HPI and below Exam Vital Signs (past 8 hours): Vital Signs - 8 hr 3 04/24/18 07:50 04/24/18 08:06 04/24/18 08:16 Temperature 97.8 F Pulse Rate 140 H 116 H 72 Respiratory Rate 24 16 Blood Pressure 85/46 L 99/57 L Blood Pressure [Right Arm] 72/49 L Pulse Oximetry 95 97 3 04/24/18 08:21 04/24/18 08:33 04/24/18 08:46 Temperature Pulse Rate 67 67 67 Respiratory Rate 15 16 Blood Pressure Blood Pressure [Right Arm] 83/57 L 87/43 L 91/53 L Pulse Oximetry 96 95 3 04/24/18 09:07 04/24/18 09:40 04/24/18 09:57 Temperature Pulse Rate 89 89 Respiratory Rate 17 18 Blood Pressure Blood Pressure [Right Arm] 96/47 L 90/48 L 128/86 H Pulse Oximetry 94 98 98 3 04/24/18 10:00 04/24/18 10:06 04/24/18 10:14 Temperature Pulse Rate 93 H 89 82 Respiratory Rate 18 21 22 Blood Pressure Blood Pressure [Right Arm] 125/71 H 107/59 L 103/53 L Pulse Oximetry 98 98 97 3 04/24/18 10:20 04/24/18 10:33 04/24/18 11:01 Temperature Pulse Rate 80 80 81 Respiratory Rate 19 18 15 Blood Pressure Blood Pressure [Right Arm] 89/49 L 83/46 L 83/51 L Pulse Oximetry 97 96 99 3 04/24/18 11:21 04/24/18 11:39 04/24/18 12:35 Temperature 99 F Pulse Rate 77 102 H 78 Respiratory Rate 16 18 15 Blood Pressure 82/52 L 97/44 L Blood Pressure [Right Arm] 77/41 L Pulse Oximetry 100 100 94 Pulse Oximetry 94 Oxygen Delivery Method Room Air Oxygen Flow Rate 0 Narrative Exam Narrative: GENERAL: This is an alert female currently in no acute distress HEAD: Atraumatic. Normocephalic. EYES: Pupils equal, round and reactive. Extraocular motions intact. No scleral icterus. No injection or drainage. OROPHARYNX: moist mucosa NECK: Trachea midline. No JVD or lymphadenopathy. CARDIOVASCULAR: Regular rate and rhythm without murmurs, gallops, or rubs. RESPIRATORY: Clear to auscultation bilaterally. GASTROINTESTINAL: Abdomen nondistended, soft, non-tender. No hepato- splenomegaly, or palpable masses. EXTREMITIES: No edema. NEUROLOGICAL: Alert, well oriented, speech is intact, normal bilateral upper and lower extremity strength SKIN: warm, dry, no rash Objective Labs Result Diagrams: 04/24/18 07:45 04/24/18 07:45 Labs: Laboratory Results - last 24 hr 04/24/18 04/24/18 04/24/18 07:45 07:45 07:45 WBC 17.5 H RBC 4.32 Hgb 12.8 Hct 38.7 MCV 89.6 MCH 29.6 MCHC 33.1 RDW 17.3 H Plt Count 186 Neut % (Auto) 87.5 H Lymph % (Auto) 5.9 L [place] % (Auto) 6.1 Eos % (Auto) 0.1 L Baso % (Auto) 0.4 Neut # (Auto) 78362 H PT 12.2 INR 1.1 APTT 32 Sodium 141 Potassium 4.0 Chloride 103 Carbon Dioxide 25 BUN 16 Creatinine 0.70 Estimated GFR > 60.0 BUN/Creatinine Ratio 22.9 H Glucose 154 H Calcium 9.1 Magnesium 1.8 Total Bilirubin 0.9 AST 35 ALT 27 Alkaline Phosphatase 72 Total Creatine Kinase 30 Troponin I < 0.012 Total Protein 7.4 Albumin 4.2 Globulin 3.2 Albumin/Globulin Ratio 1.3 Nasal Screen MRSA (PCR) 04/24/18 12:09 WBC RBC Hgb Hct MCV MCH MCHC RDW Plt Count Neut % (Auto) Lymph % (Auto) [place] % (Auto) Eos % (Auto) Baso % (Auto) Neut # (Auto) PT INR APTT Sodium Potassium Chloride Carbon Dioxide BUN Creatinine Estimated GFR BUN/Creatinine Ratio Glucose Calcium Magnesium Total Bilirubin AST ALT Alkaline Phosphatase Total Creatine Kinase Troponin I Total Protein Albumin Globulin Albumin/Globulin Ratio Nasal Screen MRSA (PCR) Negative for mrsa Chest x-ray: No acute cardiopulmonary disease EKG 1: Atrial fibrillation with RVR, no ST or T-wave changes EKG 2.: Sinus rhythm, no ST or T-wave changes Assessment & Plan Plan: Plan: 1. Paroxysmal atrial fibrillation with RVR: Patient presented symptomatic with chest pain and hypotension. She was successfully cardioverted in the ER. She had persistent hypotension which is responding to IV fluids. Continue telemetry monitoring and IV fluids at 100 cc/hour. Previous echo with normal LV function and no significant valvular disease. 2. Chest pain: Patient has history of noncardiac chest pain with a normal myocardial perfusion stress test in October 2017. On the floor she has continued to have some intermittent chest pain without EKG changes. It is nonpleuritic. Repeat troponin ordered for 4:00 p.m.. Cardiac or pulmonary embolism source seems highly unlikely. 3. Acute leukocytosis: WBC 17 K. There is no obvious symptoms or source of infection. This is more likely acute stress reaction. Repeat CBC ordered for a.m.. 4. Disposition: Observation status. Quality VTE Deep Vein Thrombosis/Pulmonary Embolism Present on Admission: No
[2018-04-24 17:21] LABS: Troponin I < 0.012 ng/mL (0.01-0.034)
[2018-04-24] MEDS: METOPROLOL ER 50 MG TABLET PO (20:20)
--- NOTE | 2018-04-24 21:43 | PC.NURSE ---
Patient's heart rate increased to 133 and remained in the 120's from 1991-0612. cafeteria monitor showed sinus tachycardia. During this time patient was repositioned and attempted a valsalva maneuver. Patient remained asymptomatic throughout episode. Denied any chest pain. Is now NSR with a heart rate of 75. Resting peacefully in bed.
[2018-04-25] VITALS (8 sets, daily range): BP systolic 113–138; BP diastolic 64–81; PULSE 70–137; RESP 17–21; TEMP 36.6–37.1; O2SAT 2–96
[2018-04-25] MEDS: ACETAMINOPHEN 325 MG TABLET 650 MG PO (02:08)
[2018-04-25] MEDS: ENOXAPARIN 60 MG/0.6 ML SYRINGE SUBCUT (02:33)
[2018-04-25] MEDS: MELATONIN 3 MG TABLET PO (02:35)
[2018-04-25 05:16] LABS: Add Manual Diff / Slide Review NO; Basophils Percent Auto 0.3 % (0-2); Eosinophils Percent Auto 0.5 % (2-4); Hematocrit 29.7 % (36-46); Hemoglobin 10.1 g/dL (12.0-16.0); Lymphocytes Percent Auto 13.9 % (25-40); Mean Corpuscular Hemoglobin 30.8 PG (26-34); Mean Corpuscular Volume 90.5 fL (80-100); Monocytes Percent Auto 9.1 % (3-14); Neutrophils Absolute Auto 7700 /uL (3000-5900); Neutrophils Percent Auto 76.2 % (50-75); Platelet Count 118 X10^3/uL (150-400); Red Blood Cell Count 3.28 X10^6/uL (4.0-5.2); White Blood Cell Count 10.2 X10^3/uL (4.5-11.0)
--- NOTE | 2018-04-25 05:57 | PC.NURSE ---
NOC Shift: Pt had one episode of ST w/HR >130 12 lead EKG done to confirm ST not Afib RVR. Pt earlier had complained of left shoulder pain and was medicated with Tylenol po. Pt denies chest pain, just having shoulder pain. VSS. Placed on 2L NC for low sats on room air. Medicated with sleep medication Me[place]in. After 30 minutes, pt asleep and HR now below 100. No further complaints of shoulder pain.
[2018-04-25] MEDS: FOLIC ACID 1 MG TABLET PO (08:32)
[2018-04-25] MEDS: ASPIRIN EC 81 MG TABLET PO (08:32)
[2018-04-25] MEDS: METOPROLOL ER 50 MG TABLET PO (08:32)
--- NOTE | 2018-04-25 08:54 | PC.NURSE ---
Addendum entered by Ender Mora R.N. 04/25/18 11:27: Pt d/c'd to home per MD order at 1124. Provided d/c packet, educational materials. Reviewed all information in detail. Removed PIV with cath tip intact. Pt and state no questions at that time and verbalize understanding. Medications were sent electronically to [facility] per Dr. Frank. Pt states they will pick these up later today. F/u appt was made and reviewed with pt/spouse. Items from pharmacy and the safe were returned to the pt who placed them in her purse. She transferred independently from chair to w/c with a steady gait. Palpated radial pulse prior to d/c noting that pulse is regular, 110. Pt denies any symptoms and has no c/o at this time. ASE CERTIFIED TECHNICIAN escorted pt to POV driven by . No acute distress. Original Note: Ambulated around nurses station approx [address] 103. RR 27. SPO2 96% on RA. Asked pt if she felt short of breath. She denies feeling short of breath despite labored breathing. Calms with rest. Denies CP but does report that L shoulder pain is now present but mild. Using ice pack for pain measure. Requires only SBA and has a steady gait. Gait belt used for safety.
[2018-04-25] MEDS: dilTIAZem CD 180 MG CAP PO (10:31)
--- NOTE | 2018-04-25 10:34 | P.DS_ITS ---
History of Present Illness Chief complaint: Atrial fibrillation, Acute hypotension Narrative: Nola Garcia is a 82 year old female patient of Dr. Evaristo Obregon with history of paroxysmal atrial fibrillation presented to emergency department with chest pain. She states chest pain started around 11:00 p.m. last night as she bent over. She took 2 tablets of nitroglycerin without real relief. She had pain in her neck or back during much of the night with little sleep. This morning she had more pain in her chest. On a ER presentation she was noted to be in atrial fibrillation with RVR and also hypertensive with systolic blood pressure in the 70s. She had cardioversion in the ER with conversion to sinus rhythm. Subsequently her blood pressure remained low in the 80 systolic but eventually up to 90 systolic after 2 L normal saline. Patient denies fevers, cough, shortness of breath, chills, abdominal pain, urinary symptoms. She has had prior evaluation for chest pain including myocardial perfusion stress test in October 2017 which was read as normal. First Responder did not think pain was due to occlusive coronary artery disease. Patient states she gets atrial fibrillation episodes only occasionally, manifested by palpitations , which last brief periods of time. Discharge Providers Date of admission: 04/24/18 11:30 Primary care physician: Evaristo Obregon MD Consults: 04/24/18 12:52 Consult to Pastoral Services Routine Comment: pt ok for visit Discharge provider: Jad Frank MD Summary Discharge Diagnosis: 1. Paroxysmal atrial fibrillation with RVR 2. Persistent chest pain, likely musculoskeletal related to arthritis condition 3. Acute hypotension, resolved 4. Acute leukocytosis, resolved 5. Chronic anemia of iron deficiency with patient on daily aspirin and NSAID therapy 6. Probable chronic anemia of chronic disease 7. Dilutional anemia with IV fluids and hospital 7. Rheumatoid arthritis, NOS Hospital Course: As noted, patient had cardioversion in the ER with buddhism of sinus rhythm. However, post cardioversion overnight she was in and out of atrial fibrillation with RVR. This morning she has been varying between sinus rhythm and atrial fibrillation with rate up to 130 beats per minute but asymptomatic both at rest and with walking around during these episodes of atrial fibrillation. Overnight she had persistent chest pain which really seems musculoskeletal and exacerbated by movements of the shoulder. She has serial negative troponin and no ischemic changes on EKG and a recent normal myocardial perfusion stress test. Also recent echo with normal LV EF and no significant valvular disease. Also she was hypotensive in the ER and post cardioversion for unclear reasons but blood pressure responded to IV fluids and in normal range this morning. Also she had acute leukocytosis which corrected on its own and likely stress response. Patient did have significant drop in hemoglobin and hematocrit which seems dilutional from IV fluids. She is chronically anemic with recent lab work showing low transferrin saturation and low ferritin consistent with iron deficiency. She may have silent peptic ulcer as she has been on daily aspirin and takes meloxicam every other day. Additionally she may be anemic on basis of chronic disease from rheumatoid arthritis. For atrial fibrillation, she is started on diltiazem ER 180 mg capsule once daily in addition to metoprolol succinate ER 50 mg twice daily which she was on at home. She should have outpatient telemetry monitoring to assess rate control. She is started on Eliquis 5 mg twice daily for prevention of embolic stroke due to atrial fibrillation. She is instructed to discontinue aspirin and meloxicam. She is also started on Protonix 40 mg daily for GI prophylaxis in light of chronic iron deficiency anemia. New medications: Diltiazem ER 180 mg capsule once daily Eliquis 5 mg twice daily Protonix 40 mg once daily Discontinued medications: Aspirin 81 mg daily Meloxicam 7.5 mg every other day Sublingual nitroglycerin Continued medications at previous doses: Vitamin D3 Cyclosporin ophthalmic Methotrexate Folate Melatonin Multi-vitamin Exam Vital Signs (past 8 hours): Vital Signs - 8 hr 3 04/25/18 04:00 04/25/18 04:11 04/25/18 05:57 Temperature 97.9 F Pulse Rate 70 Respiratory Rate 18 Blood Pressure 138/67 H Pulse Oximetry 2 L 94 94 3 04/25/18 07:50 04/25/18 08:15 04/25/18 09:13 Temperature 98.7 F Pulse Rate 80 137 H Respiratory Rate 21 20 Blood Pressure 113/66 119/64 Pulse Oximetry 95 96 96 Pulse Oximetry 96 Oxygen Delivery Method Room Air Oxygen Flow Rate 0 Objective Labs Result Diagrams: 04/25/18 04:55 04/24/18 07:45 Labs: Laboratory Results - last 24 hr 04/24/18 04/24/18 04/25/18 12:09 16:30 04:55 WBC 10.2 RBC 3.28 L Hgb 10.1 L Hct 29.7 L MCV 90.5 MCH 30.8 MCHC 34.0 RDW 17.0 H Plt Count 118 L Neut % (Auto) 76.2 H Lymph % (Auto) 13.9 L [place] % (Auto) 9.1 Eos % (Auto) 0.5 L Baso % (Auto) 0.3 Neut # (Auto) 7700 H Troponin I < 0.012 Nasal Screen MRSA (PCR) Negative for mrsa Discharge Plan Discharge Plan Patient Disposition: Home, Self-Care Provider Discharge Instructions Diet: Diet as Tolerated Discharge Data Primary Care Provider: Evaristo Obregon Attending Provider: Jad Frank Admit Date/Time: 04/24/18 11:30 Quality VTE Deep Vein Thrombosis/Pulmonary Embolism Present on Admission: No
--- NOTE | 2018-04-25 15:30 | CM.DANOTE ---
DCP/Assessment (Brief Note): Reviewed chart. Patient is a 82yr old female admitted [facility] with AFIB and acute hypotension. PCP is Dr. Obregon. Primary payor is 1)Medicare 2)Commercial Insurance. GEOSPATIAL INTELLIGENCE ANALYST attempted to meet with patient today after lunch. Spoke with RN whom reports that patient had already discharged from [facility] RN reports patient I with all ADL's. Patient resides with spouse/Yobany in [place] and there were no nursing concerns and/or d/c planning needs. Patient has appointment to f/u with Dr. Obregon as outpatient within the next few weeks. P: Home today with no identified d/c planning needs. DALTON Mcnally
== END 2018-04-25 11:24 | disposition home or self-care (01) ==
LOC: ED 11:07 → ICU 11:32
PROVIDERS: Admitting Provider Internal Medicine; Emergency Provider Emergency Medicine; PCP Internal Medicine; Visit Provider Internal Medicine
DX: I48.0 Paroxysmal atrial fibrillation (principal); I95.9 Hypotension, unspecified; I10 Essential (primary) hypertension; M06.9 Rheumatoid arthritis, unspecified; D72.829 Elevated white blood cell count, unspecified; R07.9 Chest pain, unspecified; D50.9 Iron deficiency anemia, unspecified
CPT/HCPCS: 36415; 36591; 71045; 80053; 82550; 82553; 83735; 84484; 85025; 85610; 85730; 87797; 92960; 93005; 94770; 96372; 96374; 96375; 99152; 99285; G0378; J1650

== ENCOUNTER → 2018-06-08 09:25 | Outpatient (CLI) | payer MEDICARE, OTHER, SELFPAY ==
[2018-04-24 12:35] VITALS: BMI 25.1
--- NOTE | 2018-06-08 | DI.RAD.S_ITS ---
PROCEDURE: FL SMALL BOWEL FOLLOW THROUGH INDICATIONS: Anemia COMPARISON: None. FINDINGS: KUB: Preprocedural cadmium plater film demonstrates a normal bowel gas pattern. No suspicious abdominal calcifications. Visualized solid organ contours appear normal. No suspicious bony abnormalities. Left hip arthroplasty. Small bowel: There is normal transit time of barium through the small bowel. Small bowel loops are of normal caliber throughout. Mucosal folds are smooth and of normal thickness. No strictures, intraluminal masses, or extrinsic mass effects are noted. IMPRESSION: Negative examination. Dictated by: Ender Delgadillo M.D. on 06/08/2018 at 17:04 Approved by: Ender Delgadillo M.D. on 06/08/2018 at 17:06
== END ==
PROVIDERS: PCP Internal Medicine; Visit Provider Internal Medicine Gastroenterology
DX: D64.9 Anemia, unspecified (principal)
CPT/HCPCS: 74250

== ENCOUNTER → 2018-07-25 11:32 | Outpatient (CLI) | payer MEDICARE, OTHER, SELFPAY ==
[2018-04-24 12:35] VITALS: BMI 25.1
[2018-07-25 12:10] LABS: Add Manual Diff / Slide Review NO; Eosinophils Percent Auto 2.5 % (2-4); Hematocrit 36.3 % (36-46); Lymphocytes Percent Auto 14.5 % (25-40); Mean Corpuscular HGB Conc 32.9 % (30-36); Mean Corpuscular Hemoglobin 29.1 PG (26-34); Mean Corpuscular Volume 88.5 fL (80-100); Monocytes Percent Auto 8.1 % (3-14); Neutrophils Absolute Auto 7400 /uL (3000-5900); Neutrophils Percent Auto 73.9 % (50-75); Platelet Count 211 X10^3/uL (150-400); Red Cell Distribution Width 16.7 % (11.6-14.8)
[2018-07-25 12:56] LABS: HEMOLYSIS < 15 (0-50); Iron 50 ug/dL (37-170)
[2018-07-25 13:07] LABS: Percent Iron Saturation 12 % (15-50); Total Iron Binding Capacity 426 ug/dL (265-497); Transferrin 394 mg/dL (206-381)
== END ==
PROVIDERS: PCP Internal Medicine; Visit Provider Internal Medicine
DX: Z00.00 Encounter for general adult medical examination without abnormal findings (principal); D64.9 Anemia, unspecified
CPT/HCPCS: 36415; 83540; 83550; 85025

== ENCOUNTER → 2018-07-31 13:29 | Outpatient (CLI) | payer MEDICARE, OTHER, SELFPAY ==
[2018-04-24 12:35] VITALS: BMI 25.1
== END ==
PROVIDERS: PCP Internal Medicine; Visit Provider Internal Medicine
DX: M85.88 Other specified disorders of bone density and structure, other site (principal); Z78.0 Asymptomatic menopausal state; M06.9 Rheumatoid arthritis, unspecified
CPT/HCPCS: 77080

== ENCOUNTER → 2018-08-28 11:11 | Outpatient (CLI) | payer MEDICARE, OTHER, SELFPAY ==
[2018-04-24 12:35] VITALS: BMI 25.1
--- NOTE | 2018-08-28 11:13 | DI.RAD.S_ITS ---
PROCEDURE: XR KNEE RT 3V INDICATIONS: KNEE PAIN TECHNIQUE: 3 views of the knee were acquired. COMPARISON: None. FINDINGS: Bones: No fractures or dislocations. There is left knee total arthroplasty with expected post surgical appearance. No suspicious bony lesions. Soft tissues: Small joint effusion. No suspicious soft tissue calcifications. IMPRESSION: 1. Left knee total arthroplasty with expected postsurgical appearance. No fracture or dislocation. 2. Small knee joint effusion. Dictated by: Etta Chavarria M.D. on 08/28/2018 at 17:00 Approved by: Etta Chavarria M.D. on 08/28/2018 at 17:02
--- NOTE | 2018-08-28 11:13 | DI.RAD.S_ITS ---
PROCEDURE: XR KNEE LT 3V INDICATIONS: KNEE PAIN TECHNIQUE: 3 views of the knee were acquired. COMPARISON: None. FINDINGS: Bones: No fractures or dislocations. No suspicious bony lesions. There is femorotibial compartment narrowing and small intercondylar osteophytes. Soft tissues: No joint effusion. There is mild chondrocalcinosis of the femorotibial joint. IMPRESSION: 1. Chondrocalcinosis. Differential diagnosis includes but is not limited to hemochromatosis, hyperparathyroidism and CPPD. 2. Mild degenerative change. Dictated by: Janny Carrasco M.D. on 08/28/2018 at 16:43 Approved by: Janny Carrasco M.D. on 08/28/2018 at 16:44
== END ==
PROVIDERS: PCP Internal Medicine; Visit Provider Internal Medicine
DX: M25.561 Pain in right knee (principal); M25.461 Effusion, right knee; M11.262 Other chondrocalcinosis, left knee; Z96.659 Presence of unspecified artificial knee joint
CPT/HCPCS: 73562

== ENCOUNTER → 2018-09-26 08:31 | Outpatient (CLI) | payer MEDICARE, OTHER, SELFPAY ==
[2018-04-24 12:35] VITALS: BMI 25.1
--- NOTE | 2018-09-26 | DI.ECHO.S_ITS ---
[place] [facility] +---------+ : : [address] : : : : [id number] : : : : Phone: [phone] Echocardiogram Report + + :Name: BELKIS FLOREZ Study Date: 09/26/2018 Height: 60 in : :[facility] Exam Location: [facility] Weight: 135 lb : : Gender: Female BSA: 1.6 m2 : :: 1935 Age: 83 yrs BP: 138/80 mmHg: :Reason For Study: Atrial Fibrillation : :Ordering Physician: Dr. Loera : :Sabas Performed By: Soheila Lopez : :Referring: EDGAR HERNANDEZ : + + Interpretation Summary 1) Normal left ventricular thickness, size, wall motion, and systolic function (EF 60-65%). 2) Mildly enlarged with ventricle with normal function. 3) Both atria are severely dilated. 4) Calcific mitral and aortic valves 5) Moderate mitral regurgitation. 6) The right ventricular systolic pressure is estimated to be at least 41 mmHg based on an estimated right atrial pressure of 3 mm Hg. 7) Compared to the Echo done 11/10/2017, atrial fibrillation is present on this study. Procedure: A two-dimensional transthoracic echocardiogram with color flow and Doppler was performed. The study quality was technically adequate. Comparison is made with the echocardiogram of 11/10/2017. The patient was in atrial fibrillation with heart rates between 74-101 bpm during the exam. Left Ventricle: The left ventricle is normal in size. Left ventricular wall thickness is normal. (Wtuc-ax-blip variability due to atrial fibrillation). The ejection fraction is estimated to be 60-65%. Left ventricular wall motion is normal. Diastolic function could not be accurately assessed due to atrial fibrillation. Right Ventricle: The right ventricle is mildly dilated. The right ventricular systolic function is normal. Atria: Both atria are severely dilated. The interatrial septum is intact with no evidence for an atrial septal defect. Mitral Valve: The mitral valve leaflets appear borderline thickened, but open well. There is moderate mitral annular calcification. The mitral valve leaflets are mildly calcified. There is moderate mitral regurgitation. The mitral regurgitant jet is eccentrically directed. Aortic Valve: The aortic valve is trileaflet. The aortic valve is mildly calcified. There is no aortic valve stenosis. There is mild aortic regurgitation. Tricuspid Valve: The tricuspid valve is normal in structure and function. There is mild tricuspid regurgitation. The right ventricular systolic pressure is estimated to be at least 41 mmHg based on an estimated right atrial pressure of 3 mm Hg. Pulmonic Valve: The pulmonic valve is normal in structure and function. There is a trace or physiologic amount of pulmonic regurgitation. Great Vessels: The ascending aorta is normal in size. The IVC is of normal diameter and collapses greater than 50% with a sniff. This suggests a low right atrial pressure of 3 mm Hg. Pericardium/ Pleura There is no pericardial effusion. There is an anterior echo-free space consistent with a fat pad. There is no pleural effusion. MMode/2D Measurements & Calculations LVIDd: 3.8 cm LVOT diam: 2.0 cm LVIDs: 2.0 cm asc Aorta Diam: 3.3 cm FS: 47.7 % IVSd: 1.0 cm LVPWd: 0.92 cm LV alfaro. diameter/BSA (cm/m^2): 2.4 LV sys. diameter/BSA (cm/m^2): 1.3 LA A2 area: 24.4 cm2 RA long axis: 5.7 cm LA A4 area: 24.0 cm2 RA area: 24.8 cm2 LA length (vol): 6.1 cm RA vol: 91.9 ml LA vol: 81.5 ml RA : 58.2 ml/m2 LA vol index: 51.6 ml/m2 TAPSE: 2.0 cm Doppler Measurements & Calculations Ao V2 max: 182.6 cm/sec LVOT Max David: 119.2 cm/sec Ao V2 mean: 116.5 cm/sec LV V1 max P.7 mmHg Ao max P.3 mmHg LV V1 VTI: 20.1 cm Ao mean P.3 mmHg LORI(I,D): 1.9 cm2 Ao V2 VTI: 32.3 cm LORI(V,D): 2.0 cm2 sev ratio: 0.62 LORI indexed to BSA (cm^2/m^2): 1.2 TR max david: 307.7 cm/sec TR max P.2 mmHg PA V2 max: 71.6 cm/sec PA V2 mean: 42.2 cm/sec PA mean P.84 mmHg PA pr(Accel): 37.4 mmHg Reading Physician:11:28 AM
== END ==
PROVIDERS: PCP Internal Medicine; Visit Provider Internal Medicine
DX: I08.3 Combined rheumatic disorders of mitral, aortic and tricuspid valves (principal); I48.91 Unspecified atrial fibrillation
CPT/HCPCS: 93306

== ENCOUNTER 2018-10-11 07:04 | Emergency (ER) | payer MEDICARE, OTHER, SELFPAY ==
[2018-04-24 12:35] VITALS: BMI 25.1
[2018-10-11 07:14] VITALS: BP 112/65; PULSE 96; RESP 25; TEMP 36.3; O2SAT 97; BMI 25.0
--- NOTE | 2018-10-11 07:32 | DI.RAD.S_ITS ---
PROCEDURE: XR CHEST 1V INDICATIONS: chest pain TECHNIQUE: One view of the chest was acquired. COMPARISON: [facility], , CHEST 1 VIEW, 10/23/2017, 12:57. [facility], , XR CHEST 1V, 04/24/2018, 8:19. [facility], , CHEST 1 VIEW, 11/09/2017, 13:02. FINDINGS: Surgical changes and devices: None. Lungs and pleura: No pleural effusions or pneumothorax. Lungs are unchanged with a mild interstitial prominence but the inspiratory volume is reduced. Mediastinum: Mediastinal contours appear normal except at the medial right upper lobe mediastinal border in the expected area of the azygos arch, where a contour prominence is present that was not identified on a very similar comparison chest plain film dated 10/23/17. The aortic arch in this contour abnormality are near equivalent in prominence along the left and the right mediastinal border is respectively. Heart size is at the upper limits of normal considering reduced inspiration. Bones and chest wall: No suspicious bony lesions. Overlying soft tissues appear unremarkable. IMPRESSION: Heart size at the upper limits of normal, there is a mild interstitial prominence but the inspiratory volume is reduced. A definite pattern of acute CHF is not found. There is an unusual contour prominence along the right mediastinal border that is near equivalent to the prominence of the left mediastinal border where the normal aortic arch can be seen. This may indicate growing adenopathy in that area. Obtaining a deep inspiratory PA and lateral chest plain film is recommended and if the abnormality persists chest CT scanning with contrast should be obtained. Dictated by: Cristofer Bennett M.D. on 10/11/2018 at 8:46 Approved by: Cristofer Bennett M.D. on 10/11/2018 at 8:49
[2018-10-11 07:42] VITALS: BP 112/65; PULSE 82
[2018-10-11] MEDS: NITROGLYCERIN 0.4 MG SL TAB SL (07:42)
[2018-10-11 07:48] VITALS: BP 73/44; PULSE 72
[2018-10-11 07:49] LABS: Add Manual Diff / Slide Review NO; Basophils Percent Auto 0.5 % (0-2); Eosinophils Percent Auto 0.9 % (2-4); Hematocrit 32.4 % (36-46); Hemoglobin 10.6 g/dL (12.0-16.0); Lymphocytes Percent Auto 12.2 % (25-40); Mean Corpuscular HGB Conc 32.7 % (30-36); Mean Corpuscular Hemoglobin 26.9 PG (26-34); Mean Corpuscular Volume 82.1 fL (80-100); Monocytes Percent Auto 10.7 % (3-14); Neutrophils Absolute Auto 9100 /uL (3000-5900); Neutrophils Percent Auto 75.7 % (50-75); Platelet Count 185 X10^3/uL (150-400); Red Blood Cell Count 3.95 X10^6/uL (4.0-5.2); Red Cell Distribution Width 16.4 % (11.6-14.8)
--- NOTE | 2018-10-11 07:51 | ED_ITS ---
HPI - Chest Pain General Chief Complaint: Chest Pain Stated Complaint: chest pain Time Seen by Provider: 10/11/18 07:10 Source: patient, family, RN notes reviewed and old records reviewed Mode of arrival: ambulatory Limitations: no limitations History of Present Illness HPI narrative: Patient is a 83-year-old female who presents with chest pain and neck pain. She has a history of angina and atrial fibrillation. She previously has had paroxysmal atrial fibrillation but she thinks she might be in at all the time now. She has an empty bottle of nitroglycerin. Id she has a full bottle of Eliquis but states she was told to stop taking but can't tell me why. She did take an aspirin today. This neck pain woke her up from her sleep it is nonradiating. She also has been having progressive shortness of breath but it has been ongoing for a number weeks. She had a cough yesterday which rattles her 's hearing aids. However she denies any further cough shaking fever or chills. Duration: constant Onset: during rest Severity: moderate Quality: aching Pain radiation: neck Relieving factors: nitroglycerin ( Given in ED) Treatments prior to arrival chest pain: aspirin Related Data Home Medications Medication Instructions Recorded Confirmed etanercept [Enbrel] 50 mg SQ QWEEKTH #0 11/12/07 10/11/18 methotrexate sodium 6 tab PO QWEEKFR #0 11/12/07 10/11/18 cyclosporine [Restasis] 1 drp OPHTH Q12H #0 10/23/17 10/11/18 melatonin 3 mg PO HSP PRN #0 10/23/17 10/11/18 cholecalciferol (vitamin D3) 1,000 unit PO DAILY 04/24/18 10/11/18 [Vitamin D3] folic acid 1 mg PO DAILY 04/24/18 10/11/18 metoprolol succinate 50 mg PO BID 04/24/18 10/11/18 multivitamin 1 tab PO DAILY 04/24/18 10/11/18 apixaban [Eliquis] 2.5 mg PO BID 10/11/18 10/11/18 meloxicam 15 mg PO DAILY PRN 10/11/18 10/11/18 Previous Rx's Medication Instructions Recorded diltiazem HCl 180 mg PO DAILY #30 cap 04/25/18 pantoprazole [Protonix] 40 mg PO DAILY #30 tab 04/25/18 Allergies Allergy/AdvReac Type Severity Reaction Status Date / Time No Known Drug Allergies Allergy Verified 04/24/18 07:56 Review of Systems Review of Systems All systems reviewed & are unremarkable except as noted in HPI and below Constitutional Denies chills, Denies fever(s), Denies lethargy and Denies weakness Cardiovascular Reports as per HPI and Reports dyspnea Respiratory Denies chest congestion, Reports cough, Denies hemoptysis, Denies pain with cough, Reports dyspnea and Denies wheezing Gastrointestinal Gastrointestinal: Denies abdominal pain, Denies change in bowel habits, Denies diarrhea, Denies nausea and Denies vomiting Genitourinary Denies hematuria, Denies flank pain, Denies urinary incontinence and Denies urinary urgency Musculoskeletal Denies back pain, Denies muscle weakness, Denies numbness and Denies tingling Integumentary/Breasts Denies pruritus, Denies erythema, Denies rash and Denies wounds Neurologic Denies numbness, Denies tingling and Denies weakness Hematologic/Lymphatic Denies easy bruising Allergic/Immunologic Denies wheezing [facility] Medical History Atrial fibrillation (Acute) H/O: hysterectomy (Acute) 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) Hypertension (Acute) Rheumatoid arthritis (Acute) Surgical History History of total right knee replacement (Acute) Social History household members: spouse Smoking Status: Never smoker Exam Initial Vital Signs Initial Vital Signs: Vital Signs Temperature 97.3 F L 10/11/18 07:14 Pulse Rate 96 H 10/11/18 07:14 Respiratory Rate 25 H 10/11/18 07:14 Blood Pressure 112/65 10/11/18 07:14 Pulse Oximetry 97 10/11/18 07:14 GENERAL: alert pleasant elderly female no acute distress is cooperative HEENT: Head atraumatic,EOMI, pupils reactive, face symmetric, no JVD neck is supple CARDIOVASCULAR: Irregular no click RESPIRATORY: Breath sounds equal bilaterally, no wheezes rales or rhonchi. ABDOMEN: Soft, nontender. Normoactive bowel sounds all 4 quadrants. No guarding or rebound. EXTREMITIES: Normal range of motion, no clubbing or edema. Neurovascularly intact NEUROLOGICAL: Alert and oriented x4.Normal gait and speech. Cranial nerves II through XII grossly intact. SKIN: Warm, dry, no laceration, no petechiae, no rashes or lesions. Course Orders Ordered: ED Orders 10/11/18 09:47 Troponin I Stat Discontinued Medications Sodium Chloride (Normal Saline 0.9%) 500 mls @ 1,000 mls/hr IV BOLUS ONE Stop: 10/11/18 08:18 Last Infusion: 10/11/18 08:17 Dose: 0 mls/hr Admin: 10/11/18 07:54 Dose: 1,000 mls/hr Sodium Chloride (Normal Saline 0.9%) 500 mls @ 1,000 mls/hr IV BOLUS ONE Stop: 10/11/18 08:46 Last Infusion: 10/11/18 08:50 Dose: 0 mls/hr Admin: 10/11/18 08:18 Dose: 1,000 mls/hr Nitroglycerin (Nitrostat) 0.4 mg SL NOW ONE Stop: 10/11/18 07:35 Last Admin: 10/11/18 07:42 Dose: 0.4 mg Vital Signs - 8 hr 10/11/18 10:54 Pulse Rate 75 Respiratory Rate 19 Blood Pressure 92/49 L Pulse Oximetry 97 MDM - Chest Pain Lab Data Attestation: I reviewed the patient's lab results. Result diagrams: 10/11/18 07:40 10/11/18 07:40 Lab Results 10/11/18 10/11/18 10/11/18 Range/Units 07:40 07:40 07:40 WBC 12.0 H (4.5-11.0) X10^3/uL RBC 3.95 L (4.0-5.2) X10^6/uL Hgb 10.6 L (12.0-16.0) g/dL Hct 32.4 L (36-46) % MCV 82.1 (80-100) fL MCH 26.9 (26-34) PG MCHC 32.7 (30-36) % RDW 16.4 H (11.6-14.8) % Plt Count 185 (150-400) X10^3/uL Neut % (Auto) 75.7 H (50-75) % Lymph % (Auto) 12.2 L (25-40) % [place] % (Auto) 10.7 (3-14) % Eos % (Auto) 0.9 L (2-4) % Baso % (Auto) 0.5 (0-2) % Neut # (Auto) 9100 H (8025-4550) /uL PT 15.7 H (10.1-12.7) SECONDS INR 1.4 H (0.9-1.3) APTT 34 D (26.4-36.2) SECONDS Sodium 137 (137-145) mmol/L Potassium 3.8 (3.4-5.1) mmol/L Chloride 102 (98-107) mmol/L Carbon Dioxide 23 (22-32) mmol/L BUN 15 (7-17) mg/dL Creatinine 0.70 (0.52-1.04) mg/dL Estimated GFR > 60.0 (>60) mL/min BUN/Creatinine Ratio 21.4 (6-22) Glucose 111 H (80-110) mg/dL Calcium 8.5 (8.4-10.2) mg/dL Total Bilirubin 0.8 (0.2-1.3) mg/dL AST 19 (14-36) IU/L ALT 21 (9-52) IU/L Alkaline Phosphatase 75 (38-126) U/L Total Creatine Kinase < 20 L (30-135) U/L CK-MB (CK-2) TNP CK-MB (CK-2) Rel Index TNP Troponin I < 0.012 (0.01-0.034) ng/mL B-Natriuretic Peptide (<100) Total Protein 6.3 (6.3-8.2) g/dL Albumin 3.7 (3.5-5.0) g/dL Globulin 2.6 (1.7-4.1) g/dL Albumin/Globulin Ratio 1.4 (1.0-2.8) Lipase 38 (23-300) U/L 10/11/18 10/11/18 Range/Units 07:40 09:47 WBC (4.5-11.0) X10^3/uL RBC (4.0-5.2) X10^6/uL Hgb (12.0-16.0) g/dL Hct (36-46) % MCV (80-100) fL MCH (26-34) PG MCHC (30-36) % RDW (11.6-14.8) % Plt Count (150-400) X10^3/uL Neut % (Auto) (50-75) % Lymph % (Auto) (25-40) % [place] % (Auto) (3-14) % Eos % (Auto) (2-4) % Baso % (Auto) (0-2) % Neut # (Auto) (2863-5108) /uL PT (10.1-12.7) SECONDS INR (0.9-1.3) APTT (26.4-36.2) SECONDS Sodium (137-145) mmol/L Potassium (3.4-5.1) mmol/L Chloride (98-107) mmol/L Carbon Dioxide (22-32) mmol/L BUN (7-17) mg/dL Creatinine (0.52-1.04) mg/dL Estimated GFR (>60) mL/min BUN/Creatinine Ratio (6-22) Glucose (80-110) mg/dL Calcium (8.4-10.2) mg/dL Total Bilirubin (0.2-1.3) mg/dL AST (14-36) IU/L ALT (9-52) IU/L Alkaline Phosphatase (38-126) U/L Total Creatine Kinase (30-135) U/L CK-MB (CK-2) CK-MB (CK-2) Rel Index Troponin I < 0.012 (0.01-0.034) ng/mL B-Natriuretic Peptide 356.0 H (<100) Total Protein (6.3-8.2) g/dL Albumin (3.5-5.0) g/dL Globulin (1.7-4.1) g/dL Albumin/Globulin Ratio (1.0-2.8) Lipase (23-300) U/L ECG Data Attestation: I personally reviewed and interpreted this ECG as follows: Prior ECG tracings: available for review Interpretation: AFib rate [address] changes similar to previous EKG no T- wave inversion MDM Narrative Medical decision making narrative: patient has 2- troponins. Her pain improved after 1 nitro never reoccurred. She has this often. It is confirmed with office notes that she is supposed to continue Eliquis she was never taken off. I have reiterated this to her and her . She also told someone else in the emergency department that she is taking Eliquis. I think she is a bit confused. She overall feels better and is ready in able to go. Discharge Plan Departure Patient Disposition: Home Clinical Impression: Atypical chest pain Discharge Date/Time: 10/11/18 10:55 Interventions: ED Discharge Assessment Last Done: 10/11/18 10:54 Instructions: DI for Atypical Chest Pain Activity Restrictions/Additional Instructions: *You have been diagnosed with atypical chest pain, AFib *What to do: Blood work and EKG negative, may still require further cardiac testing please discussed with your regular doctor *Continue to take medications as directed *Follow up with your primary care provider in 2-3 days *Return to ER if you should have worsening chest pain dizziness lightheadedness or any new, worsening or concerning symptoms Prescriptions: No Action methotrexate sodium 2.5 MG tablet 6 tab PO QWEEKFR Qty: 0 RF: 0 etanercept [Enbrel] 50 MG/1 ML syringe 50 mg SQ QWEEKTH Qty: 0 RF: 0 melatonin 3 MG tablet 3 mg PO HSP PRN (Reason: Sleep) Qty: 0 RF: 0 cyclosporine [Restasis] 1 EACH dropperette 1 drp OPHTH Q12H Qty: 0 RF: 0 multivitamin Tablet 1 tab PO DAILY RF: 0 metoprolol succinate 50 mg Tablet Extended Release 24 Hr 50 mg PO BID RF: 0 folic acid 1 mg Tablet 1 mg PO DAILY RF: 0 cholecalciferol (vitamin D3) [Vitamin D3] 1,000 unit Tablet 1,000 unit PO DAILY RF: 0 diltiazem HCl 180 mg capsule,extended release 24 hr 180 mg PO DAILY Qty: 30 RF: 0 pantoprazole [Protonix] 40 mg tablet,delayed release (DR/EC) 40 mg PO DAILY Qty: 30 RF: 0 meloxicam 15 mg tablet 15 mg PO DAILY PRN (Reason: pain) RF: 0 apixaban [Eliquis] 2.5 mg Tablet 2.5 mg PO BID RF: 0 Referrals: Evaristo Obregon MD [Primary Care Provider] -
[2018-10-11] MEDS: SODIUM CHLORIDE 0.9% 500 ML 1000 ML IV ×2 (07:54→08:18)
[2018-10-11 07:56] LABS: INR 1.4 (0.9-1.3); Prothrombin Time 15.7 SECONDS (10.1-12.7)
[2018-10-11 07:59] LABS: PTT Partial Thromboplastin Tim 34 SECONDS (26.4-36.2)
[2018-10-11 08:02] LABS: Alanine Aminotransferase 21 IU/L (9-52); Albumin 3.7 g/dL (3.5-5.0); Albumin Globulin Ratio 1.4 (1.0-2.8); Alkaline Phosphatase 75 U/L (38-126); Aspartate Aminotransferase 19 IU/L (14-36); BUN Creatinine Ratio 21.4 (6-22); Bilirubin Total 0.8 mg/dL (0.2-1.3); Blood Urea Nitrogen 15 mg/dL (7-17); Calcium 8.5 mg/dL (8.4-10.2); Carbon Dioxide 23 mmol/L (22-32); Chloride 102 mmol/L (98-107); Creatine Kinase < 20 U/L (30-135); Estimated Glomerular Filt Rate > 60.0 mL/min (>60); Globulin 2.6 g/dL (1.7-4.1); Glucose 111 mg/dL (80-110); HEMOLYSIS < 15 (0-50); Lipase 38 U/L (23-300); Potassium 3.8 mmol/L (3.4-5.1); Sodium 137 mmol/L (137-145); Total Protein 6.3 g/dL (6.3-8.2)
[2018-10-11 08:24] LABS: Troponin I < 0.012 ng/mL (0.01-0.034)
[2018-10-11 09:00] VITALS: BP 87/48; PULSE 69; RESP 20; O2SAT 95
[2018-10-11 09:02] VITALS: BP 85/47; PULSE 66; RESP 17; O2SAT 97
[2018-10-11 10:19] LABS: Troponin I < 0.012 ng/mL (0.01-0.034)
[2018-10-11 10:54] VITALS: BP 92/49; PULSE 75; RESP 19; O2SAT 97
--- NOTE | 2018-10-13 14:57 | PC.NURSE ---
pt stated she is better today and appreciate the call today.
== END 2018-10-11 10:55 | disposition home or self-care (01) ==
PROVIDERS: Emergency Provider Emergency Medicine; PCP Internal Medicine
DX: R07.89 Other chest pain (principal)
CPT/HCPCS: 36415; 71045; 80053; 82550; 83690; 83880; 84484; 85025; 85610; 85730; 93005; 93041; 96360; 99284; 99285

== ENCOUNTER → 2018-11-12 13:30 | Outpatient (CLI) | payer MEDICARE, OTHER, SELFPAY ==
[2018-04-24 12:35] VITALS: BMI 25.1
--- NOTE | 2018-11-12 | DI.NM.S_ITS ---
PROCEDURE: NM NEREYDA PERF SPECT R&S PHARM Rest and pharmacological stress myocardial perfusion SPECT with gated imaging and ejection fraction RADIOPHARMACEUTICAL: 26.4 mCi Tc-99m tetrafosmin IV at rest and 25.5 mCi Tc-99m tetrafosmin IV at peak effect of pharmacological stress. [id number] was performed. INDICATIONS: CHEST PAIN TECHNIQUE: Radiopharmaceutical was injected at peak stress test, and also at rest. SPECT images were obtained. SPECT myocardial perfusion images were displayed in short axis, horizontal long axis, and vertical long axis views. Gated images were reviewed using Primesport software. COMPARISON: 10/25/2017 lexiscan. CARDIAC STRESS: A pharmacologic stress test was performed under the supervision of an attending staff, using an infusion of lexiscan 0.4mg IV X1. Hemodynamic data: There is normal blood pressure and heart rate response to pharmacologic stress. Symptoms: The patient denied anginal chest pain. Aminophylline: none EKG: Atrial fibrillation with rapid ventricular response present throughout the study. No diagnostic changes of ischemia. FINDINGS: Raw data: There is good myocardial uptake of radiotracer. No significant motion artifacts. Tuyb-pg-meuzs ratio is 0.47 (normal is less than 0.38 for tetrafosmin tracer). Left ventricle function: Gated images demonstrate normal left ventricular wall thickening. No segmental wall motion abnormalities. No transient ischemic dilation; TID is 0.76 (normal less than 1.3). Left ventricle resting end diastolic volume is 78 mL. Left ventricle stress ejection fraction is 77% ; normal range is above 45%. Myocardial perfusion: There is small mildly severely mostly fixed defect at the apical lateral wall that was also documented on prior study. No prone images during this study but the previous study involved prone images and the perfusion defects resolved with prone images. SSS 1, SRS 0. IMPRESSION: Probably normal pharmaceutical nuclear stress test from ischemia standpoint. Atrial fibrillation with rapid ventricular response present during the entire study. 1) Probably normal perfusion images. There is small mildly severely mostly fixed defect at the apical lateral wall that was also documented on prior study. No prone images during this study but the previous study involved prone images and the perfusion defects resolved with prone images. SSS 1, SRS 0. 2) Normal left ventricular size, wall motion, and systolic function (EF post stress 77%). 3) Atrial fibrillation with rapid ventricular response during the entire study. 4) No ST changes significant of ischemia with lexiscan. 5) No angina during the study. 6) Compared to the nuclear stress test done 10/25/2017, no significant change. Dictated by: Savanna Julio MD on 11/13/2018 at 13:11 Approved by: Savanna Julio MD on 11/13/2018 at 13:16
--- NOTE | 2018-11-12 14:59 | PM.TREADMILL ---
Cardiac Stress Test Report Referral & Results Date Patient Seen: 11/12/18 Requesting provider: Evaristo Obregon Indication: AFib Rest ECG: Persistent atrial fibrillation with borderline controlled ventricular response Procedure Note: After both written and verbal informed consent the patient had an IV started by the diagnostic imaging RN, and then was hooked up to the treadmill monitoring system. The Lexiscan material, and then the Cardiolite tracer, were administered sequentially. An additional 3 min was spent monitoring the patient while supine on the gurney, and with upper extremity exercise with squeeze balls. The patient had a normal response to all infused materials. She was somewhat quickly tachycardic with minimal activity reaching a maximum heart rate of 160+ in her AFib, despite taking all her medications including her diltiazem and metoprolol prior to the test Impression: Tachycardic ventricular response to activity Normal response otherwise to infuse materials Perfusion imaging to be reported separately Please note: Actual ECG tracings can be found in the PACS system.
== END ==
PROVIDERS: PCP Internal Medicine; Visit Provider Internal Medicine
DX: R07.9 Chest pain, unspecified (principal); I48.91 Unspecified atrial fibrillation
CPT/HCPCS: 78452; 93016; 93017; 93018; A9502; J2785

== ENCOUNTER → 2019-01-15 12:31 | Outpatient (CLI) | payer MEDICARE, OTHER, SELFPAY ==
[2018-04-24 12:35] VITALS: BMI 25.1
[2019-01-15 13:13] LABS: Add Manual Diff / Slide Review NO; Basophils Absolute Auto 0 /uL (0-100); Basophils Percent Auto 0.4 % (0-2); Eosinophils Absolute Auto 300 /uL (0-450); Eosinophils Percent Auto 2.4 % (2-4); Hematocrit 31.8 % (36-46); Lymphocytes Absolute Auto 1600 /uL (1100-4500); Lymphocytes Percent Auto 14.2 % (25-40); Mean Corpuscular HGB Conc 31.4 % (30-36); Mean Corpuscular Hemoglobin 24.5 PG (26-34); Mean Corpuscular Volume 77.9 fL (80-100); Monocytes Absolute Auto 800 /uL (0-900); Monocytes Percent Auto 7.4 % (3-14); Neutrophils Absolute Auto 8300 /uL (1500-7000); Neutrophils Percent Auto 75.6 % (50-75); Platelet Count 276 X10^3/uL (150-400); Red Blood Cell Count 4.07 X10^6/uL (4.0-5.2); Red Cell Distribution Width 18.6 % (11.6-14.8)
[2019-01-15 13:32] LABS: HEMOLYSIS < 15 (0-50); Iron 29 ug/dL (37-170)
[2019-01-15 13:33] LABS: BUN Creatinine Ratio 17.5 (6-22); Blood Urea Nitrogen 14 mg/dL (7-17); Carbon Dioxide 21 mmol/L (22-32); Chloride 102 mmol/L (98-107); Estimated Glomerular Filt Rate > 60.0 mL/min (>60); Glucose 107 mg/dL (80-110); HEMOLYSIS 19 (0-50); Potassium 4.7 mmol/L (3.4-5.1); Sodium 135 mmol/L (137-145)
[2019-01-15 13:43] LABS: Percent Iron Saturation 7 % (15-50); Total Iron Binding Capacity 441 ug/dL (265-497); Transferrin 348 mg/dL (206-381)
[2019-01-15 14:08] LABS: Ferritin 10.8 ng/mL (11.1-264)
== END ==
PROVIDERS: PCP Internal Medicine; Visit Provider Internal Medicine
DX: D50.9 Iron deficiency anemia, unspecified (principal); D64.9 Anemia, unspecified; I48.2 Chronic atrial fibrillation
CPT/HCPCS: 36415; 80048; 82728; 83540; 83550; 85025

== ENCOUNTER → 2019-01-31 11:39 | Outpatient (CLI) | payer MEDICARE, OTHER, SELFPAY ==
[2018-04-24 12:35] VITALS: BMI 25.1
[2019-01-31 13:15] LABS: Add Manual Diff / Slide Review NO; Basophils Absolute Auto 100 /uL (0-100); Basophils Percent Auto 0.5 % (0-2); Eosinophils Absolute Auto 0 /uL (0-450); Eosinophils Percent Auto 0.2 % (2-4); Hematocrit 36.2 % (36-46); Hemoglobin 11.1 g/dL (12.0-16.0); Lymphocytes Absolute Auto 600 /uL (1100-4500); Lymphocytes Percent Auto 5.7 % (25-40); Mean Corpuscular HGB Conc 30.6 % (30-36); Mean Corpuscular Hemoglobin 24.2 PG (26-34); Mean Corpuscular Volume 79.3 fL (80-100); Monocytes Absolute Auto 100 /uL (0-900); Monocytes Percent Auto 1.3 % (3-14); Neutrophils Absolute Auto 10200 /uL (1500-7000); Neutrophils Percent Auto 92.3 % (50-75); Platelet Count 252 X10^3/uL (150-400); Red Blood Cell Count 4.57 X10^6/uL (4.0-5.2); Red Cell Distribution Width 19.5 % (11.6-14.8); White Blood Cell Count 11.1 X10^3/uL (4.5-11.0)
[2019-01-31 14:30] LABS: HEMOLYSIS < 15 (0-50); Iron 25 ug/dL (37-170)
[2019-01-31 14:40] LABS: Percent Iron Saturation 5 % (15-50); Total Iron Binding Capacity 470 ug/dL (265-497); Transferrin 375 mg/dL (206-381)
== END ==
PROVIDERS: PCP Internal Medicine; Visit Provider Internal Medicine
DX: D64.9 Anemia, unspecified (principal); D50.9 Iron deficiency anemia, unspecified
CPT/HCPCS: 36415; 83540; 83550; 85025

== ENCOUNTER → 2019-03-29 10:27 | Outpatient (CLI) | payer MEDICARE, OTHER, SELFPAY ==
[2018-04-24 12:35] VITALS: BMI 25.1
[2019-03-29 10:53] LABS: Bacteria Urine None Seen; RBC Urine None Seen (0-5/HPF); WBC Urine None Seen (0-5/HPF)
[2019-03-29 11:52] LABS: Add Manual Diff / Slide Review NO; Basophils Absolute Auto 100 /uL (0-100); Basophils Percent Auto 0.7 % (0-2); Eosinophils Absolute Auto 300 /uL (0-450); Eosinophils Percent Auto 2.7 % (2-4); Hematocrit 32.6 % (36-46); Hemoglobin 10.2 g/dL (12.0-16.0); Lymphocytes Absolute Auto 1500 /uL (1100-4500); Lymphocytes Percent Auto 15.3 % (25-40); Mean Corpuscular HGB Conc 31.3 % (30-36); Mean Corpuscular Hemoglobin 24.6 PG (26-34); Mean Corpuscular Volume 78.4 fL (80-100); Monocytes Absolute Auto 800 /uL (0-900); Monocytes Percent Auto 8.1 % (3-14); Neutrophils Absolute Auto 7300 /uL (1500-7000); Neutrophils Percent Auto 73.2 % (50-75); Platelet Count 251 X10^3/uL (150-400); Red Blood Cell Count 4.15 X10^6/uL (4.0-5.2); Red Cell Distribution Width 19.5 % (11.6-14.8)
[2019-03-29 12:24] LABS: Appearance Urine UA CLEAR; Bilirubin Urine UA NEGATIVE (NEGATIVE); Color Urine UA YELLOW; Glucose Urine UA NEGATIVE (Negative); Ketones Urine UA NEGATIVE (NEGATIVE); Leukocyte Esterase Urine UA NEGATIVE (NEGATIVE); Nitrite Urine UA NEGATIVE (Negative); Occult Blood Urine UA NEGATIVE (Negative); Protein Urine UA NEGATIVE (Negative); Urobilinogen Urine UA 0.2 E.U./dL (0.2)
[2019-03-29 12:42] LABS: Culture Indicated Urine Cult Not Indicated; Urine Comments Microscopic Normal
== END ==
PROVIDERS: PCP Internal Medicine; Visit Provider Physician Assistant Medical
DX: M05.79 Rheumatoid arthritis with rheumatoid factor of multiple sites without organ or systems involvement (principal)
CPT/HCPCS: 36415; 81001; 85025

== ENCOUNTER → 2019-04-16 11:23 | Outpatient (CLI) | payer MEDICARE, OTHER, SELFPAY ==
[2018-04-24 12:35] VITALS: BMI 25.1
[2019-04-16 13:21] LABS: Add Manual Diff / Slide Review NO; Basophils Absolute Auto 0 /uL (0-100); Basophils Percent Auto 0.2 % (0-2); Eosinophils Absolute Auto 100 /uL (0-450); Eosinophils Percent Auto 0.8 % (2-4); Hematocrit 33.9 % (36-46); Hemoglobin 10.3 g/dL (12.0-16.0); Lymphocytes Absolute Auto 1500 /uL (1100-4500); Lymphocytes Percent Auto 9.3 % (25-40); Mean Corpuscular HGB Conc 30.5 % (30-36); Mean Corpuscular Hemoglobin 23.9 PG (26-34); Mean Corpuscular Volume 78.2 fL (80-100); Monocytes Absolute Auto 1300 /uL (0-900); Monocytes Percent Auto 8.2 % (3-14); Neutrophils Absolute Auto 13100 /uL (1500-7000); Neutrophils Percent Auto 81.5 % (50-75); Platelet Count 289 X10^3/uL (150-400); Red Blood Cell Count 4.33 X10^6/uL (4.0-5.2); Red Cell Distribution Width 19.3 % (11.6-14.8); White Blood Cell Count 16.1 X10^3/uL (4.5-11.0)
[2019-04-16 13:40] LABS: BUN Creatinine Ratio 32.9 (6-22); Blood Urea Nitrogen 23 mg/dL (7-17); Carbon Dioxide 25 mmol/L (22-32); Chloride 104 mmol/L (98-107); Estimated Glomerular Filt Rate > 60.0 mL/min (>60); Glucose 91 mg/dL (80-110); HEMOLYSIS < 15 (0-50); Potassium 4.2 mmol/L (3.4-5.1); Sodium 137 mmol/L (137-145)
[2019-04-16 15:06] LABS: HEMOLYSIS < 15 (0-50); Iron 28 ug/dL (37-170)
[2019-04-16 15:19] LABS: Percent Iron Saturation 6 % (15-50); Total Iron Binding Capacity 449 ug/dL (265-497); Transferrin 341 mg/dL (206-381)
== END ==
PROVIDERS: PCP Internal Medicine; Visit Provider Internal Medicine
DX: D50.9 Iron deficiency anemia, unspecified (principal); I10 Essential (primary) hypertension
CPT/HCPCS: 36415; 80048; 83540; 83550; 85025

== ENCOUNTER → 2019-05-29 11:35 | Outpatient (CLI) | payer MEDICARE, OTHER, SELFPAY ==
[2018-04-24 12:35] VITALS: BMI 25.1
[2019-05-29 13:15] LABS: Add Manual Diff / Slide Review NO; Basophils Absolute Auto 0 /uL (0-100); Basophils Percent Auto 0.5 % (0-2); Eosinophils Absolute Auto 100 /uL (0-450); Eosinophils Percent Auto 1.3 % (2-4); Hematocrit 32.8 % (36-46); Hemoglobin 10.4 g/dL (12.0-16.0); Lymphocytes Absolute Auto 1100 /uL (1100-4500); Lymphocytes Percent Auto 14.3 % (25-40); Mean Corpuscular HGB Conc 31.8 % (30-36); Mean Corpuscular Hemoglobin 27.8 PG (26-34); Mean Corpuscular Volume 87.5 fL (80-100); Monocytes Absolute Auto 500 /uL (0-900); Monocytes Percent Auto 6.7 % (3-14); Neutrophils Absolute Auto 5700 /uL (1500-7000); Neutrophils Percent Auto 77.2 % (50-75); Platelet Count 221 X10^3/uL (150-400); Red Blood Cell Count 3.75 X10^6/uL (4.0-5.2); White Blood Cell Count 7.4 X10^3/uL (4.5-11.0)
[2019-05-29 13:32] LABS: HEMOLYSIS < 15 (0-50); Iron 40 ug/dL (37-170)
[2019-05-29 13:34] LABS: BUN Creatinine Ratio 22.9 (6-22); Blood Urea Nitrogen 16 mg/dL (7-17); Calcium 9.3 mg/dL (8.4-10.2); Carbon Dioxide 26 mmol/L (22-32); Chloride 106 mmol/L (98-107); Estimated Glomerular Filt Rate > 60.0 mL/min (>60); Glucose 99 mg/dL (80-110); HEMOLYSIS < 15 (0-50); Potassium 4.6 mmol/L (3.4-5.1); Sodium 139 mmol/L (137-145)
[2019-05-29 13:43] LABS: Percent Iron Saturation 10 % (15-50); Total Iron Binding Capacity 391 ug/dL (265-497); Transferrin 308 mg/dL (206-381)
[2019-05-29 13:51] LABS: Anisocytosis 2+; Poikilocytosis 2+; Polychromasia 1+
[2019-05-29 14:03] LABS: Ferritin 16.8 ng/mL (11.1-264)
== END ==
PROVIDERS: PCP Internal Medicine; Visit Provider Internal Medicine
DX: I10 Essential (primary) hypertension (principal); I48.0 Paroxysmal atrial fibrillation
CPT/HCPCS: 36415; 80048; 82728; 83540; 83550; 85025

== ENCOUNTER → 2019-06-11 12:04 | Outpatient (CLI) | payer MEDICARE, OTHER, SELFPAY ==
[2018-04-24 12:35] VITALS: BMI 25.1
--- NOTE | 2019-06-11 12:09 | DI.RAD.S_ITS ---
PROCEDURE: XR KNEE RT 3V INDICATIONS: Fall, pain and swelling TECHNIQUE: 3 views of the knee were acquired. COMPARISON: [facility], CR, XR KNEE RT 3V, 08/28/2018, 10:58. FINDINGS: Bones: Post right total knee arthroplasty. No periprosthetic lucency. No fractures or dislocations. No suspicious bony lesions. Soft tissues: Small joint effusion. No suspicious soft tissue calcifications. IMPRESSION: Stable right total knee arthroplasty. No acute osseous abnormality. Dictated by: Haresh Sandoval M.D. on 06/11/2019 at 13:02 Approved by: Haresh Sandoval M.D. on 06/11/2019 at 13:06
== END ==
PROVIDERS: PCP Internal Medicine; Visit Provider Physician Assistant
DX: M25.561 Pain in right knee (principal); Z96.651 Presence of right artificial knee joint
CPT/HCPCS: 73562

== ENCOUNTER → 2019-07-08 13:44 | Outpatient (CLI) | payer MEDICARE, OTHER, SELFPAY ==
[2018-04-24 12:35] VITALS: BMI 25.1
[2019-07-08 14:48] LABS: Add Manual Diff / Slide Review NO; Basophils Absolute Auto 0 /uL (0-100); Basophils Percent Auto 0.2 % (0-2); Eosinophils Absolute Auto 0 /uL (0-450); Eosinophils Percent Auto 0.2 % (2-4); Hematocrit 30.7 % (36-46); Hemoglobin 9.5 g/dL (12.0-16.0); Lymphocytes Absolute Auto 1300 /uL (1100-4500); Lymphocytes Percent Auto 8.4 % (25-40); Mean Corpuscular HGB Conc 30.9 % (30-36); Mean Corpuscular Volume 84.2 fL (80-100); Monocytes Absolute Auto 1200 /uL (0-900); Monocytes Percent Auto 7.9 % (3-14); Neutrophils Absolute Auto 12600 /uL (1500-7000); Neutrophils Percent Auto 83.3 % (50-75); Platelet Count 318 X10^3/uL (150-400); Red Blood Cell Count 3.65 X10^6/uL (4.0-5.2); Red Cell Distribution Width 20.2 % (11.6-14.8); White Blood Cell Count 15.1 X10^3/uL (4.5-11.0)
[2019-07-08 14:59] LABS: BUN Creatinine Ratio 26.3 (6-22); Blood Urea Nitrogen 21 mg/dL (7-17); Calcium 9.6 mg/dL (8.4-10.2); Carbon Dioxide 23 mmol/L (22-32); Chloride 100 mmol/L (98-107); Estimated Glomerular Filt Rate > 60.0 mL/min (>60); Glucose 100 mg/dL (80-110); HEMOLYSIS < 15 (0-50); Potassium 4.2 mmol/L (3.4-5.1); Sodium 135 mmol/L (137-145)
[2019-07-08 15:04] LABS: HEMOLYSIS < 15 (0-50); Iron 26 ug/dL (37-170)
[2019-07-08 15:14] LABS: Percent Iron Saturation 6 % (15-50); Total Iron Binding Capacity 435 ug/dL (265-497); Transferrin 335 mg/dL (206-381)
[2019-07-08 15:22] LABS: Anisocytosis 2+; Poikilocytosis 1+
== END ==
PROVIDERS: PCP Internal Medicine; Visit Provider Internal Medicine
DX: I10 Essential (primary) hypertension (principal); D50.9 Iron deficiency anemia, unspecified
CPT/HCPCS: 36415; 80048; 83540; 83550; 85025

== ENCOUNTER 2019-07-17 09:09 | Emergency (ER) | payer MEDICARE, OTHER, SELFPAY ==
[2018-04-24 12:35] VITALS: BMI 25.1
[2019-07-17 09:05] VITALS: BP 121/86; PULSE 98; RESP 18; TEMP 36.7; O2SAT 98
--- NOTE | 2019-07-17 09:32 | ED.FALL ---
HPI - Fall General Chief Complaint: Fall Stated Complaint: hit head on eliquis = Modified Time Seen by Provider: 07/17/19 09:15 Source: patient, family and EMS Limitations: no limitations History of Present Illness HPI Narrative: Patient is an 84-year-old female who is on Eliquis presenting with head injury. She is not a great historian. Apparently her 90-year-old was trying to get her back in to bed he was unable to lift her she hit her head on a cabinet. There is no sign of trauma no bleeding no laceration. A family friend now in the room states that she has been more confused over the last 3 days. Fall from: standing Related Data Home Medications Medication Instructions Recorded Confirmed Enbrel 50 mg SQ QWEEKTH #0 11/12/07 07/17/19 methotrexate sodium 6 tab PO QWEEKFR #0 11/12/07 07/17/19 Restasis 1 drp OPHTH PRN PRN #0 10/23/17 07/17/19 melatonin 3 mg PO BEDTIME PRN #0 10/23/17 07/17/19 cholecalciferol (vitamin D3) 1,000 unit PO DAILY 04/24/18 07/17/19 [Vitamin D3] folic acid 1 mg PO DAILY 04/24/18 07/17/19 metoprolol succinate 50 mg PO BID 04/24/18 07/17/19 multivitamin 1 tab PO DAILY 04/24/18 07/17/19 apixaban [Eliquis] 2.5 mg PO BID 10/11/18 07/17/19 meloxicam 15 mg PO DAILY PRN 10/11/18 07/17/19 ferrous gluconate 324 mg PO DAILY 07/17/19 07/17/19 nitroglycerin 0.4 mg SUBLINGUAL Q5-15M PRN 07/17/19 07/17/19 turmeric 720 mg PO DAILY 07/17/19 07/17/19 Previous Rx's Medication Instructions Recorded diltiazem HCl 180 mg PO DAILY #30 cap 04/25/18 pantoprazole [Protonix] 40 mg PO DAILY #30 tab 04/25/18 Allergies Allergy/AdvReac Type Severity Reaction Status Date / Time No Known Drug Allergies Allergy Verified 06/11/19 11:30 Review of Systems Review of Systems ROS Unobtainable: All systems reviewed & are unremarkable except as noted in HPI and below Constitutional Denies chills, Denies fever(s) and Reports weakness Eyes Denies change in vision, Denies eye discharge, Denies irritation and Denies loss of vision Cardiovascular Denies chest pain, Denies irregular heart rhythm, Denies lightheadedness, Denies palpitations, Denies dyspnea, Denies dyspnea on exertion and Denies orthopnea Respiratory Denies cough, Denies dyspnea, Denies dyspnea on exertion and Denies wheezing Gastrointestinal Gastrointestinal: Denies abdominal pain, Denies change in bowel habits, Denies diarrhea, Denies nausea and Denies vomiting Genitourinary Denies hematuria, Denies flank pain, Denies urinary incontinence and Denies urinary urgency Musculoskeletal Denies back pain, Denies muscle weakness, Denies numbness and Denies tingling Integumentary/Breasts Denies pruritus, Denies erythema, Denies rash and Denies wounds Neurologic Reports confusion, Denies loss of vision, Reports memory loss, Denies numbness, Denies tingling and Reports weakness Psychiatric Reports confusion and Reports memory loss Endocrine Denies palpitations Allergic/Immunologic Denies wheezing Exam Initial Vital Signs Initial Vital Signs: Vital Signs Temperature 98.1 F 07/17/19 09:05 Pulse Rate 98 H 07/17/19 09:05 Respiratory Rate 18 07/17/19 09:05 Blood Pressure 121/86 07/17/19 09:05 Pulse Oximetry 98 07/17/19 09:05 GENERAL: Pleasantly confused elderly female oriented to person and place HEENT: Head atraumatic, no crepitations or depression no contusion no laceration EOMI, pupils reactive, face symmetric, moist mucous membranes CARDIOVASCULAR: Regular rate and rhythm without murmurs, rubs or gallops. RESPIRATORY: Breath sounds equal bilaterally, no wheezes rales or rhonchi. ABDOMEN: Soft, nontender. Normoactive bowel sounds all 4 quadrants. No guarding or rebound. EXTREMITIES: Normal range of motion, no clubbing or edema. 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) Hypertension (Acute) Rheumatoid arthritis (Acute) Surgical History History of total right knee replacement (Acute) Social History household members: spouse Smoking Status: Never smoker Social History household members: spouse Smoking Status: Never smoker Course Orders Ordered: ED Orders 07/17/19 09:47 CT head/brain wo con Stat 07/17/19 10:35 Basic Metabolic Panel Stat Complete Blood Count AUTO DIFF Stat 07/17/19 11:48 Urinalysis and Microscopic Stat Vital Signs - 8 hr 07/17/19 10:30 07/17/19 11:00 07/17/19 11:30 Pulse Rate 59 L 83 69 Respiratory Rate 17 19 18 Blood Pressure Blood Pressure [Left Arm] 127/103 H 121/77 103/77 Pulse Oximetry 100 100 99 07/17/19 12:00 07/17/19 13:11 Pulse Rate 112 H 82 Respiratory Rate 18 Blood Pressure 99/69 Blood Pressure [Left Arm] 100/60 Pulse Oximetry 97 97 MDM - Fall Lab Data Attestation: I reviewed the patient's lab results. Result diagrams: 07/17/19 10:35 07/17/19 10:35 Lab Results 07/17/19 07/17/19 07/17/19 Range/Units 10:35 10:35 11:48 WBC 14.2 H (4.5-11.0) X10^3/uL RBC 3.92 L (4.0-5.2) X10^6/uL Hgb 10.4 L (12.0-16.0) g/dL Hct 32.4 L (36-46) % MCV 82.6 (80-100) fL MCH 26.6 (26-34) PG MCHC 32.2 (30-36) % RDW 20.0 H (11.6-14.8) % Plt Count 276 (150-400) X10^3/uL Neut % (Auto) 91.4 H (50-75) % Lymph % (Auto) 6.4 L (25-40) % [place] % (Auto) 1.9 L (3-14) % Eos % (Auto) 0.1 L (2-4) % Baso % (Auto) 0.2 (0-2) % Neut # (Auto) 79133 H (1963-0223) /uL Lymph # (Auto) 900 L (9542-5130) /uL [place] # (Auto) 300 (0-900) /uL Eos # (Auto) 0 (0-450) /uL Baso # (Auto) 0 (0-100) /uL Sodium 138 (137-145) mmol/L Potassium 4.5 (3.4-5.1) mmol/L Chloride 102 (98-107) mmol/L Carbon Dioxide 23 (22-32) mmol/L BUN 26 H (7-17) mg/dL Creatinine 0.70 (0.52-1.04) mg/dL Estimated GFR > 60.0 (>60) mL/min BUN/Creatinine Ratio 37.1 H (6-22) Glucose 120 H (80-110) mg/dL Calcium 9.5 (8.4-10.2) mg/dL Urine Color Yellow Urine Appearance Clear Urine pH 5.5 (4.5-8.0) Ur Specific [place] 1.020 (1.000-1.035) Urine Protein Trace H (Negative) Urine Glucose (UA) Negative (Negative) g/dL Urine Ketones 1+ H (NEGATIVE) Urine Occult Blood Negative (Negative) Urine Nitrate Negative (Negative) Urine Bilirubin Negative (NEGATIVE) Urine Urobilinogen 0.2 (0.2) E.U./dL Ur Leukocyte Esterase Negative (NEGATIVE) Urine RBC 0-1/hpf (0-5/HPF) Urine WBC 1-5/hpf (0-5/HPF) Ur Squamous Epith Cells 1-5 /hpf (0-5/HPF) Urine Bacteria Moderate (10-30) H (None) Hyaline Casts 1-5/lpf (None) Urine Mucus 2+ H (Negative) Ur Culture Indicated? Cult not indicated Imaging Data CT scan - head: Radiologist's impression: PROCEDURE: CT HEAD/BRAIN WO CON INDICATIONS: fall confusion TECHNIQUE: Noncontrast 4.5 mm thick angled axial sections acquired from the foramen magnum to the vertex, with coronal and sagittal reformats. For radiation dose reduction, the following was used: automated exposure control, adjustment of mA and/or kV according to patient size. COMPARISON: None. FINDINGS: Image quality: Excellent. CSF spaces: Basal cisterns are patent. No extra-axial fluid collections. The ventricles are symmetric in size and shape. Brain: No intracranial bleeds or masses. There is cerebral volume loss for age, with resultant ventricular and sulcal prominence. There are periventricular and deep white matter chronic small vessel ischemic changes. There is intracranial internal carotid artery atherosclerosis. Skull and face: Calvarium and visualized facial bones appear intact, without suspicious lesions. Incidental note is made of hyperostosis frontalis. This is not considered to be pathologic in a woman of this age. Sinuses: Visualized sinuses and mastoids are clear. IMPRESSION: No acute intracranial hemorrhage is seen. No displaced calvarial fracture can be seen. Note is made of age-appropriate brain parenchymal volume loss and chronic small vessel ischemic changes. Dictated by: Timmy Hickman M.D. on 07/17/2019 at 10:16 MDM Narrative Medical decision making narrative: Patient does have mild leukocytosis however she has had this in the past. Urine is clear. Head CT and electrolytes are within normal limits. At this time no indication for admission to hospital. Patient's neighbor is willing and able to take her home. Discharge Plan Departure Patient Disposition: Home Clinical Impression: Closed head injury Qualifiers: Encounter type: initial encounter Qualified Code(s): S09.90XA - Unspecified injury of head, initial encounter Discharge Date/Time: 07/17/19 13:13 Interventions: ED Discharge Assessment Last Done: 07/17/19 13:11 Instructions: Closed Head Injury Activity Restrictions/Additional Instructions: *You have been diagnosed with closed head injury *What to do: CT and blood work today reassuring no sign of infection. *Continue to take medications as directed *Follow up with your primary care provider in 2-3 days *Return to ER if you should have worsening confusion, weakness, vomiting, persistent falls or any new, worsening or concerning symptoms Prescriptions: No Action methotrexate sodium 2.5 MG tablet 6 tab PO QWEEKFR Qty: 0 RF: 0 Enbrel 50 MG/1 ML syringe 50 mg SQ QWEEKTH Qty: 0 RF: 0 melatonin 3 MG tablet 3 mg PO BEDTIME PRN (Reason: Sleep) Qty: 0 RF: 0 Restasis 1 EACH dropperette 1 drp OPHTH PRN PRN (Reason: Dry Eye(S)) Qty: 0 RF: 0 multivitamin Tablet 1 tab PO DAILY RF: 0 metoprolol succinate 50 mg Tablet Extended Release 24 Hr 50 mg PO BID RF: 0 folic acid 1 mg Tablet 1 mg PO DAILY RF: 0 cholecalciferol (vitamin D3) [Vitamin D3] 1,000 unit Tablet 1,000 unit PO DAILY RF: 0 diltiazem HCl 180 mg capsule,extended release 24 hr 180 mg PO DAILY Qty: 30 RF: 0 pantoprazole [Protonix] 40 mg tablet,delayed release (DR/EC) 40 mg PO DAILY Qty: 30 RF: 0 meloxicam 15 mg tablet 15 mg PO DAILY PRN (Reason: pain) RF: 0 Eliquis 2.5 mg Tablet 2.5 mg PO BID RF: 0 nitroglycerin 0.4 mg Tablet, Sublingual 0.4 mg SUBLINGUAL Q5-15M PRN (Reason: Chest Pain) RF: 0 ferrous gluconate 324 mg (38 mg iron) Tablet 324 mg PO DAILY RF: 0 turmeric 720 mg capsule 720 mg PO DAILY RF: 0 Referrals: Evaristo Obregon MD [Primary Care Provider] -
--- NOTE | 2019-07-17 09:47 | DI.CT.S_ITS ---
PROCEDURE: CT HEAD/BRAIN WO CON INDICATIONS: fall confusion TECHNIQUE: Noncontrast 4.5 mm thick angled axial sections acquired from the foramen magnum to the vertex, with coronal and sagittal reformats. For radiation dose reduction, the following was used: automated exposure control, adjustment of mA and/or kV according to patient size. COMPARISON: None. FINDINGS: Image quality: Excellent. CSF spaces: Basal cisterns are patent. No extra-axial fluid collections. The ventricles are symmetric in size and shape. Brain: No intracranial bleeds or masses. There is cerebral volume loss for age, with resultant ventricular and sulcal prominence. There are periventricular and deep white matter chronic small vessel ischemic changes. There is intracranial internal carotid artery atherosclerosis. Skull and face: Calvarium and visualized facial bones appear intact, without suspicious lesions. Incidental note is made of hyperostosis frontalis. This is not considered to be pathologic in a woman of this age. Sinuses: Visualized sinuses and mastoids are clear. IMPRESSION: No acute intracranial hemorrhage is seen. No displaced calvarial fracture can be seen. Note is made of age-appropriate brain parenchymal volume loss and chronic small vessel ischemic changes. Dictated by: Timmy Hickman M.D. on 07/17/2019 at 10:16 Approved by: Timmy Hickman M.D. on 07/17/2019 at 10:16
[2019-07-17 10:30] VITALS: BP 127/103; PULSE 59; RESP 17; O2SAT 100
[2019-07-17 10:53] LABS: Add Manual Diff / Slide Review NO; Basophils Absolute Auto 0 /uL (0-100); Basophils Percent Auto 0.2 % (0-2); Eosinophils Absolute Auto 0 /uL (0-450); Eosinophils Percent Auto 0.1 % (2-4); Hematocrit 32.4 % (36-46); Hemoglobin 10.4 g/dL (12.0-16.0); Lymphocytes Absolute Auto 900 /uL (1100-4500); Lymphocytes Percent Auto 6.4 % (25-40); Mean Corpuscular HGB Conc 32.2 % (30-36); Mean Corpuscular Hemoglobin 26.6 PG (26-34); Mean Corpuscular Volume 82.6 fL (80-100); Monocytes Absolute Auto 300 /uL (0-900); Monocytes Percent Auto 1.9 % (3-14); Neutrophils Absolute Auto 13000 /uL (1500-7000); Neutrophils Percent Auto 91.4 % (50-75); Platelet Count 276 X10^3/uL (150-400); Red Blood Cell Count 3.92 X10^6/uL (4.0-5.2); White Blood Cell Count 14.2 X10^3/uL (4.5-11.0)
[2019-07-17 11:00] VITALS: BP 121/77; PULSE 83; RESP 19; O2SAT 100
[2019-07-17 11:00] LABS: BUN Creatinine Ratio 37.1 (6-22); Blood Urea Nitrogen 26 mg/dL (7-17); Calcium 9.5 mg/dL (8.4-10.2); Carbon Dioxide 23 mmol/L (22-32); Chloride 102 mmol/L (98-107); Estimated Glomerular Filt Rate > 60.0 mL/min (>60); Glucose 120 mg/dL (80-110); HEMOLYSIS 36 (0-50); Potassium 4.5 mmol/L (3.4-5.1); Sodium 138 mmol/L (137-145)
[2019-07-17 11:30] VITALS: BP 103/77; PULSE 69; RESP 18; O2SAT 99
[2019-07-17 12:00] VITALS: BP 100/60; PULSE 112; RESP 18; O2SAT 97
[2019-07-17 12:00] LABS: Appearance Urine UA CLEAR; Bilirubin Urine UA NEGATIVE (NEGATIVE); Color Urine UA YELLOW; Glucose Urine UA NEGATIVE (Negative); Ketones Urine UA 1+ (NEGATIVE); Leukocyte Esterase Urine UA NEGATIVE (NEGATIVE); Nitrite Urine UA NEGATIVE (Negative); Occult Blood Urine UA NEGATIVE (Negative); Protein Urine UA TRACE (Negative); Urobilinogen Urine UA 0.2 E.U./dL (0.2); pH Urine UA 5.5 (4.5-8.0)
[2019-07-17 12:12] LABS: Bacteria Urine Moderate (10-30); Culture Indicated Urine Cult Not Indicated; Hyaline Casts Urine 1-5/LPF; Mucus Urine 2+ (Negative); RBC Urine 0-1/HPF (0-5/HPF); Squamous Epithelial Cell Urine 1-5 /HPF (0-5/HPF); WBC Urine 1-5/HPF (0-5/HPF)
[2019-07-17 13:11] VITALS: BP 99/69; PULSE 82; O2SAT 97
== END 2019-07-17 13:13 | disposition home or self-care (01) ==
PROVIDERS: Emergency Provider Emergency Medicine; PCP Internal Medicine
DX: S09.90XA Unspecified injury of head, initial encounter (principal)
CPT/HCPCS: 36415; 70450; 80048; 81001; 85025; 99284

== ENCOUNTER 2019-07-18 11:12 | Inpatient (IN) | payer MEDICARE, OTHER, SELFPAY ==
[2018-04-24 12:35] VITALS: BMI 25.1
[2019-07-18] VITALS (8 sets, daily range): BP systolic 94–114; BP diastolic 53–70; PULSE 64–94; RESP 12–20; TEMP 36.4–37.3; O2SAT 97–100; BMI 36.8
--- NOTE | 2019-07-18 11:18 | DI.RAD.S_ITS ---
PROCEDURE: XR CHEST 1V INDICATIONS: weakness, glf TECHNIQUE: One view of the chest was acquired. COMPARISON: [facility], CR, XR CHEST 1V, 10/11/2018, 8:20. FINDINGS: Surgical changes and devices: None. Lungs and pleura: There continues to be a rounded area of increased density within the right superior hilar region, unchanged. No focal consolidation, effusion, or pneumothorax is evident. Mediastinum: Mediastinal contours appear normal. Heart size is normal. There is aortic atherosclerosis. Bones and chest wall: No suspicious bony lesions. Overlying soft tissues appear unremarkable. IMPRESSION: Stable chest. No acute cardiopulmonary process is evident. Dictated by: Polo Herrera M.D. on 07/18/2019 at 10:59 Approved by: Polo Herrera M.D. on 07/18/2019 at 11:00
--- NOTE | 2019-07-18 11:18 | DI.RAD.S_ITS ---
PROCEDURE: XR HIP W PEL IF DONE RT 2V INDICATIONS: pain sp glf TECHNIQUE: 2 views of the hip were acquired. COMPARISON: [facility], CR, XR PELVIS WITH LATERAL HIP RIGHT, 05/01/2019, 8:56. FINDINGS: Bones: Postoperative changes related to a left hip arthroplasty are identified. The acetabular component continues to be significantly vertically oriented, which is unchanged since the previous exam without tino dislocation of the components. No periprosthetic fractures are appreciated. Severe degenerative changes of the right hip have significantly progressed in the interim with prominent articular surface collapse along the superior margin of the right femoral head and severe degenerative changes. No displaced fractures are appreciated. Prominent degenerative changes of the lower lumbar spine are evident. Soft tissues: No suspicious soft tissue calcifications or masses. IMPRESSION: 1. 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 2. Status post left hip arthroplasty is unchanged. The acetabular component is vertically oriented, which does predispose the patient for dislocations. No dislocation is evident at this time. 3. Prominent degenerative changes of the lower lumbar spine. Dictated by: Polo Herrera M.D. on 07/18/2019 at 11:01 Approved by: Polo Herrera M.D. on 07/18/2019 at 11:03
--- NOTE | 2019-07-18 11:18 | DI.RAD.S_ITS ---
PROCEDURE: XR THORACIC SPINE 2V INDICATIONS: pain sp glf TECHNIQUE: 3 views of the thoracic spine were acquired. COMPARISON: None. FINDINGS: Bones: On the lateral views, the cervicothoracic junction is not well visualized but the alignment through this region appears to be within normal limits. The vertebral body heights are within normal limits throughout the thoracic spine without evidence to suggest acute compression fracture. The bone mineralization is within normal limits. Moderate to severe multilevel degenerative changes of the thoracic spine are identified. Soft tissues: The imaged overlying soft tissues of the chest are within normal limits. IMPRESSION: 1. No acute compression fracture. 2. Moderate degenerative changes of the thoracic spine. Dictated by: Polo Herrera M.D. on 07/18/2019 at 11:03 Approved by: Polo Herrera M.D. on 07/18/2019 at 11:05
--- NOTE | 2019-07-18 11:25 | ED.FALL ---
HPI - Fall <Rowena Vidal, QUALITY ASSURANCE ENGINEER-BC - Last Filed: 07/18/19 16:07> General Chief Complaint: Trauma Stated Complaint: GLF Time Seen by Provider: 07/18/19 11:12 Source: patient and EMS Mode of arrival: EMS Limitations: altered mental status (Dementia) History of Present Illness HPI Narrative: The patient is an 84-year-old female nonsmoker with history of dementia and atrial fibrillation on Eliquis who presents after a ground level fall. She states that she has had 3 ground level falls in the past 24 hours, corroborated by her neighbor as well as EMS. She was evaluated at this facility yesterday for a previous ground level fall. The patient denies any syncope, states she just gets weak and falls down. Per her neighbors, this has been a progressive issue, worsening weakness over the past several weeks. Yesterday the patient had a head CT changes. She states that today after she fell, she has right hip pain. She is not sure whether not she hit her head. She denies any neck pain, but complains of midback pain. She denies any dysuria urgency or frequency. She has dementia and is not a great historian. The patient lives at home with her 90-year-old , who takes care of her. Related Data Home Medications Medication Instructions Recorded Confirmed Enbrel 50 mg SQ QWEEKTH #0 11/12/07 07/18/19 methotrexate sodium 6 tab PO QWEEKFR #0 11/12/07 07/18/19 Restasis 1 drp OPHTH PRN PRN #0 10/23/17 07/18/19 melatonin 3 mg PO BEDTIME PRN #0 10/23/17 07/18/19 cholecalciferol (vitamin D3) 1,000 unit PO DAILY 04/24/18 07/18/19 [Vitamin D3] folic acid 1 mg PO DAILY 04/24/18 07/18/19 metoprolol succinate 50 mg PO BID 04/24/18 07/18/19 multivitamin 1 tab PO DAILY 04/24/18 07/18/19 apixaban [Eliquis] 2.5 mg PO BID 10/11/18 07/18/19 meloxicam 15 mg PO DAILY PRN 10/11/18 07/18/19 ferrous gluconate 324 mg PO DAILY 07/17/19 07/18/19 nitroglycerin 0.4 mg SUBLINGUAL Q5-15M PRN 07/17/19 07/18/19 turmeric 720 mg PO DAILY 07/17/19 07/18/19 Previous Rx's Medication Instructions Recorded diltiazem HCl 180 mg PO DAILY #30 cap 04/25/18 pantoprazole [Protonix] 40 mg PO DAILY #30 tab 04/25/18 Allergies Allergy/AdvReac Type Severity Reaction Status Date / Time No Known Drug Allergies Allergy Verified 06/11/19 11:30 Review of Systems <CHARLY Sofia- - Last Filed: 07/18/19 16:07> Review of Systems GENERAL: Denies chills, fatigue, malaise, fever, sweats. HEENT: Denies sinus pain, ear pain, sore throat, difficulty swallowing, dizziness. RESPIRATORY: Denies dyspnea, cough, wheezing, hemoptysis, sputum. CARDIOVASCULAR: Denies chest pain, palpitations, orthopnea, edema, GASTROINTESTINAL: Denies nausea, vomiting, abdominal pain, diarrhea, constipation, melena. : Denies dysuria, frequency, incontinence, hematuria, urinary retention. MUSCULOSKELETAL: See HPI SKIN: Denies rash, skin lesions, or other NEUROLOGIC: See HPI PSYCHIATRIC: No concerning psychosocial issues. 12 point review of systems is negative except for those stated above Exam <ILDA SofiaP- - Last Filed: 07/18/19 16:07> Narrative Exam Narrative: GENERAL: Pleasantly confused only female lying on stretcher HEAD: Atraumatic. Normocephalic. No temporal or scalp tenderness. EYES: Pupils equal round and reactive. Extraocular motions intact. No scleral icterus. No injection or drainage. ENT: Nose without bleeding, purulent drainage or septal hematoma. Throat without erythema, tonsillar hypertrophy or exudate. Uvula midline. Airway patent. NECK: Trachea midline. No JVD or lymphadenopathy. Supple, nontender, no meningeal signs. CARDIOVASCULAR: Irregularly irregular rate rate and rhythm RESPIRATORY: Clear to auscultation. Breath sounds equal bilaterally. No wheezes, rales, or rhonchi. No cough. No increased respiratory effort. No accessory muscle use. GASTROINTESTINAL: Abdomen soft, non-tender, nondistended. No hepato-splenomegaly, or palpable masses. No guarding. Active bowel sounds all 4 quadrants. EXTREMITIES: No clubbing, cyanosis, or edema. No joint tenderness, effusion, or edema noted. No palpable pelvic instability. Pain to palpation right hip. BACK: No pain to palpation of C-spine. Diffuse pain to palpation of T spine. No pain to palpation of L-spine. NEURO: Alert. Oriented x1. Clear speech. SKIN: No rash or erythema. Rectal exam: Performed with Stacey YAO tone is intact. Heme-positive stool. Initial Vital Signs Initial Vital Signs: Vital Signs Temperature 99.0 F 07/18/19 11:10 Pulse Rate 75 07/18/19 11:10 Respiratory Rate 15 07/18/19 11:10 Blood Pressure 111/58 L 07/18/19 11:10 Pulse Oximetry 100 07/18/19 11:10 <Rowena Godinez DO - Last Filed: 07/19/19 07:14> Initial Vital Signs Initial Vital Signs: Vital Signs Temperature 99.0 F 07/18/19 11:10 Pulse Rate 75 07/18/19 11:10 Respiratory Rate 15 07/18/19 11:10 Blood Pressure 111/58 L 07/18/19 11:10 Pulse Oximetry 100 07/18/19 11:10 PFSH <CELIA Sofia - Last Filed: 07/18/19 16:07> Medical History Atrial fibrillation (Acute) H/O: hysterectomy (Acute) 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) Hypertension (Acute) Rheumatoid arthritis (Acute) Surgical History History of total right knee replacement (Acute) Social History household members: spouse Smoking Status: Never smoker Social History household members: spouse Smoking Status: Never smoker Procedures <CELIA Sofia - Last Filed: 07/18/19 16:07> Stool Hemoccult Procedural Steps Taken: stool placed in appropriate test area, developer placed on stool and control areas and controls appropriately positive and negative Hemoccult result: positive Course <CELIA Sofia - Last Filed: 07/18/19 16:07> Orders Ordered: ED Orders 07/19/19 00:10 Complete Blood Count NO DIFF Stat 07/19/19 05:50 Basic Metabolic Panel Routine Magnesium Routine Acetaminophen (Tylenol) 650 mg PO Q6HR PRN PRN Reason: As Needed for Fever/Mild Pain Last Admin: 07/19/19 01:48 Dose: 650 mg Diltiazem HCl (Cardizem Cd) 180 mg PO DAILY [facility] Folic Acid (Folic Acid) 1 mg PO DAILY [facility] Sodium Chloride (Normal Saline 0.9%) 1,000 mls @ 100 mls/hr IV CONT [facility] Last Admin: 07/18/19 21:17 Dose: 100 mls/hr Cefazolin Sodium/Dextrose (Ancef) 1 gm in 50 mls @ 200 mls/hr IV Q8H [facility] Last Infusion: 07/19/19 03:15 Dose: 0 mls/hr Admin: 07/19/19 03:00 Dose: 200 mls/hr Methotrexate (Methotrexate) 15 mg PO Fr@0900 [facility] Metoprolol Succinate (Toprol Xl) 50 mg PO BID [facility] Last Admin: 07/18/19 21:15 Dose: 50 mg Multivitamins (Tab-A-Betty) 1 tab PO DAILY [facility] Cyclosporine [ (Restasis]) 1 drop OPHTH PRN PRN PRN Reason: Dry Eye(S) Ondansetron HCl (Zofran) 4 mg IV Q8HR PRN PRN Reason: Nausea And Vomiting Pantoprazole Sodium (Protonix) 40 mg PO DAILY [facility] Discontinued Medications Bisacodyl (Dulcolax) 10 mg PO NOW ONE Stop: 07/18/19 16:25 Last Admin: 07/18/19 16:56 Dose: 10 mg Sodium Chloride (Normal Saline 0.9%) 1,000 mls @ 250 mls/hr IV CONT [facility] Last Infusion: 07/18/19 15:31 Dose: 200 mls/hr Admin: 07/18/19 12:05 Dose: 250 mls/hr Magnesium Citrate (Magnesium Citrate) 150 ml PO NOW ONE Stop: 07/18/19 21:35 Last Admin: 07/18/19 21:16 Dose: 150 ml Sodium Biphosphate/Sodium Phosphate (Fleet Enema) [address] NOW ONE Stop: 07/18/19 20:01 Last Admin: 08/22/19 21:17 Dose: 1 each Consultations Consultation #1: Spoke with Dr. Newberry from [facility] given the reference of avascular necrosis on x-ray. She states it is not acute for this patient at this point time, rather that it is a demonstration of severe arthritis. I then spoke with Jessica, control systems technician, who clarified that the patient was supposed to stop taking her Eliquis on 07/12 pending colonoscopy. Time: 12:40 Consultation #2: I spoke with Dr. Lane from surgery, who recommended the patient come in for a scope. Also suggested CT abdomen pelvis with no contrast to evaluate for any bleeding, which was ordered accordingly. Patient does not have any abdominal pain to palpation. Discussed plan with patient has no questions or concerns and states accordance . Time: 13:50 Vital Signs - 8 hr 07/18/19 23:30 07/19/19 00:55 07/19/19 03:40 Temperature 97.5 F L 97.6 F Pulse Rate 94 H 94 H 93 H Respiratory Rate 18 16 Blood Pressure 108/70 108/70 111/65 Pulse Oximetry 100 100 <Rowena Godinez, - Last Filed: 07/19/19 07:14> Orders Ordered: ED Orders 07/19/19 00:10 Complete Blood Count NO DIFF Stat 07/19/19 05:50 Basic Metabolic Panel Routine Magnesium Routine Acetaminophen (Tylenol) 650 mg PO Q6HR PRN PRN Reason: As Needed for Fever/Mild Pain Last Admin: 07/19/19 01:48 Dose: 650 mg Diltiazem HCl (Cardizem Cd) 180 mg PO DAILY [facility] Folic Acid (Folic Acid) 1 mg PO DAILY [facility] Sodium Chloride (Normal Saline 0.9%) 1,000 mls @ 100 mls/hr IV CONT [facility] Last Admin: 07/18/19 21:17 Dose: 100 mls/hr Cefazolin Sodium/Dextrose (Ancef) 1 gm in 50 mls @ 200 mls/hr IV Q8H [facility] Last Infusion: 07/19/19 03:15 Dose: 0 mls/hr Admin: 07/19/19 03:00 Dose: 200 mls/hr Methotrexate (Methotrexate) 15 mg PO Fr@0900 [facility] Metoprolol Succinate (Toprol Xl) 50 mg PO BID [facility] Last Admin: 07/18/19 21:15 Dose: 50 mg Multivitamins (Tab-A-Betty) 1 tab PO DAILY [facility] Cyclosporine [ (Restasis]) 1 drop OPHTH PRN PRN PRN Reason: Dry Eye(S) Ondansetron HCl (Zofran) 4 mg IV Q8HR PRN PRN Reason: Nausea And Vomiting Pantoprazole Sodium (Protonix) 40 mg PO DAILY [facility] Discontinued Medications Bisacodyl (Dulcolax) 10 mg PO NOW ONE Stop: 07/18/19 16:25 Last Admin: 07/18/19 16:56 Dose: 10 mg Sodium Chloride (Normal Saline 0.9%) 1,000 mls @ 250 mls/hr IV CONT [facility] Last Infusion: 07/18/19 15:31 Dose: 200 mls/hr Admin: 07/18/19 12:05 Dose: 250 mls/hr Magnesium Citrate (Magnesium Citrate) 150 ml PO NOW ONE Stop: 07/18/19 21:35 Last Admin: 07/18/19 21:16 Dose: 150 ml Sodium Biphosphate/Sodium Phosphate (Fleet Enema) [address] NOW ONE Stop: 07/18/19 20:01 Last Admin: 07/18/19 21:17 Dose: 1 each Vital Signs - 8 hr 07/18/19 23:30 07/19/19 00:55 07/19/19 03:40 Temperature 97.5 F L 97.6 F Pulse Rate 94 H 94 H 93 H Respiratory Rate 18 16 Blood Pressure 108/70 108/70 111/65 Pulse Oximetry 100 100 MDM - Fall <CELIA Sofia - Last Filed: 07/18/19 16:07> Lab Data Result diagrams: 07/19/19 00:10 07/19/19 05:50 Lab Results 07/18/19 07/18/19 07/18/19 Range/Units 11:27 11:27 12:05 WBC 13.7 H (4.5-11.0) X10^3/uL RBC 3.31 L (4.0-5.2) X10^6/uL Hgb 8.9 L (12.0-16.0) g/dL Hct 27.4 L (36-46) % MCV 82.8 (80-100) fL MCH 26.9 (26-34) PG MCHC 32.5 (30-36) % RDW 19.9 H (11.6-14.8) % Plt Count 266 (150-400) X10^3/uL Neut % (Auto) 89.7 H (50-75) % Lymph % (Auto) 7.5 L (25-40) % Parmer % (Auto) 2.1 L (3-14) % Eos % (Auto) 0.4 L (2-4) % Baso % (Auto) 0.3 (0-2) % Neut # (Auto) 68270 H (2502-0623) /uL Lymph # (Auto) 1000 L (0368-3164) /uL Parmer # (Auto) 300 (0-900) /uL Eos # (Auto) 100 (0-450) /uL Baso # (Auto) 0 (0-100) /uL Sodium 140 (137-145) mmol/L Potassium 4.2 (3.4-5.1) mmol/L Chloride 104 (98-107) mmol/L Carbon Dioxide 24 (22-32) mmol/L BUN 23 H (7-17) mg/dL Creatinine 0.70 (0.52-1.04) mg/dL Estimated GFR > 60.0 (>60) mL/min BUN/Creatinine Ratio 32.9 H (6-22) Glucose 115 H (80-110) mg/dL Calcium 9.1 (8.4-10.2) mg/dL Magnesium 2.2 (1.6-2.3) mg/dL Total Bilirubin 1.2 (0.2-1.3) mg/dL AST 37 H (14-36) IU/L ALT 22 (9-52) IU/L Alkaline Phosphatase 79 (38-126) U/L Total Creatine Kinase 51 (30-135) U/L CK-MB (CK-2) TNP CK-MB (CK-2) Rel Index TNP Troponin I 0.020 (0.01-0.034) ng/mL B-Natriuretic Peptide 164 H (<100) Total Protein 6.5 (6.3-8.2) g/dL Albumin 3.7 (3.5-5.0) g/dL Globulin 2.8 (1.7-4.1) g/dL Albumin/Globulin Ratio 1.3 (1.0-2.8) Urine Color Yellow Urine Appearance Clear Urine pH 5.5 (4.5-8.0) Ur Specific Story 1.020 (1.000-1.035) Urine Protein Negative (Negative) Urine Glucose (UA) Negative (Negative) g/dL Urine Ketones 1+ H (NEGATIVE) Urine Occult Blood Trace-lysed (Negative) Urine Nitrate Negative (Negative) Urine Bilirubin Negative (NEGATIVE) Urine Urobilinogen 0.2 (0.2) E.U./dL Ur Leukocyte Esterase Negative (NEGATIVE) Urine RBC None seen (0-5/HPF) Urine WBC 0-1/hpf (0-5/HPF) Ur Squamous Epith Cells 5-10 /hpf H (0-5/HPF) Amorphous Sediment 3+ Urine Bacteria Occasional (0-1) D (None) Urine Mucus 3+ H (Negative) Ur Culture Indicated? Cult not indicated Blood Type Antibody Screen 07/18/19 07/18/19 07/19/19 Range/Units 17:55 17:55 00:10 WBC 10.1 (4.5-11.0) X10^3/uL RBC 2.86 L (4.0-5.2) X10^6/uL Hgb 8.3 L 7.8 L (12.0-16.0) g/dL Hct 26.1 L 24.1 L (36-46) % MCV 84.5 (80-100) fL MCH 27.4 (26-34) PG MCHC 32.4 (30-36) % RDW 20.2 H (11.6-14.8) % Plt Count 219 (150-400) X10^3/uL Neut % (Auto) (50-75) % Lymph % (Auto) (25-40) % Parmer % (Auto) (3-14) % Eos % (Auto) (2-4) % Baso % (Auto) (0-2) % Neut # (Auto) (6980-3415) /uL Lymph # (Auto) (2292-7789) /uL Parmer # (Auto) (0-900) /uL Eos # (Auto) (0-450) /uL Baso # (Auto) (0-100) /uL Sodium (137-145) mmol/L Potassium (3.4-5.1) mmol/L Chloride (98-107) mmol/L Carbon Dioxide (22-32) mmol/L BUN (7-17) mg/dL Creatinine (0.52-1.04) mg/dL Estimated GFR (>60) mL/min BUN/Creatinine Ratio (6-22) Glucose (80-110) mg/dL Calcium (8.4-10.2) mg/dL Magnesium (1.6-2.3) mg/dL Total Bilirubin (0.2-1.3) mg/dL AST (14-36) IU/L ALT (9-52) IU/L Alkaline Phosphatase (38-126) U/L Total Creatine Kinase (30-135) U/L CK-MB (CK-2) CK-MB (CK-2) Rel Index Troponin I (0.01-0.034) ng/mL B-Natriuretic Peptide (<100) Total Protein (6.3-8.2) g/dL Albumin (3.5-5.0) g/dL Globulin (1.7-4.1) g/dL Albumin/Globulin Ratio (1.0-2.8) Urine Color Urine Appearance Urine pH (4.5-8.0) Ur Specific Story (1.000-1.035) Urine Protein (Negative) Urine Glucose (UA) (Negative) g/dL Urine Ketones (NEGATIVE) Urine Occult Blood (Negative) Urine Nitrate (Negative) Urine Bilirubin (NEGATIVE) Urine Urobilinogen (0.2) E.U./dL Ur Leukocyte Esterase (NEGATIVE) Urine RBC (0-5/HPF) Urine WBC (0-5/HPF) Ur Squamous Epith Cells (0-5/HPF) Amorphous Sediment Urine Bacteria (None) Urine Mucus (Negative) Ur Culture Indicated? Blood Type O Positive Antibody Screen Negative 07/19/19 Range/Units 05:50 WBC (4.5-11.0) X10^3/uL RBC (4.0-5.2) X10^6/uL Hgb (12.0-16.0) g/dL Hct (36-46) % MCV (80-100) fL MCH (26-34) PG MCHC (30-36) % RDW (11.6-14.8) % Plt Count (150-400) X10^3/uL Neut % (Auto) (50-75) % Lymph % (Auto) (25-40) % Parmer % (Auto) (3-14) % Eos % (Auto) (2-4) % Baso % (Auto) (0-2) % Neut # (Auto) (9115-4861) /uL Lymph # (Auto) (9760-1064) /uL Parmer # (Auto) (0-900) /uL Eos # (Auto) (0-450) /uL Baso # (Auto) (0-100) /uL Sodium 139 (137-145) mmol/L Potassium 3.4 (3.4-5.1) mmol/L Chloride 108 H (98-107) mmol/L Carbon Dioxide 24 (22-32) mmol/L BUN 10 (7-17) mg/dL Creatinine 0.50 L (0.52-1.04) mg/dL Estimated GFR > 60.0 (>60) mL/min BUN/Creatinine Ratio 20.0 (6-22) Glucose 91 (80-110) mg/dL Calcium 8.1 L (8.4-10.2) mg/dL Magnesium 2.1 (1.6-2.3) mg/dL Total Bilirubin (0.2-1.3) mg/dL AST (14-36) IU/L ALT (9-52) IU/L Alkaline Phosphatase (38-126) U/L Total Creatine Kinase (30-135) U/L CK-MB (CK-2) CK-MB (CK-2) Rel Index Troponin I (0.01-0.034) ng/mL B-Natriuretic Peptide (<100) Total Protein (6.3-8.2) g/dL Albumin (3.5-5.0) g/dL Globulin (1.7-4.1) g/dL Albumin/Globulin Ratio (1.0-2.8) Urine Color Urine Appearance Urine pH (4.5-8.0) Ur Specific Story (1.000-1.035) Urine Protein (Negative) Urine Glucose (UA) (Negative) g/dL Urine Ketones (NEGATIVE) Urine Occult Blood (Negative) Urine Nitrate (Negative) Urine Bilirubin (NEGATIVE) Urine Urobilinogen (0.2) E.U./dL Ur Leukocyte Esterase (NEGATIVE) Urine RBC (0-5/HPF) Urine WBC (0-5/HPF) Ur Squamous Epith Cells (0-5/HPF) Amorphous Sediment Urine Bacteria (None) Urine Mucus (Negative) Ur Culture Indicated? Blood Type Antibody Screen Point of Care Testing Stool Occult Blood Positive Imaging Data CT scan - head: Radiologist's impression: [address] [address] [address] Scan Report Signed Patient: Nola Garcia R#: [id number] : 6Acct:[id number] Age/Sex: 84 / FDate of Service: 07/18/19 Loc: ED Accession Number: [id number] Procedure: CT head/brain wo con Ordering Provider: Rowena Vidal-ESTELLE PROCEDURE: CT HEAD/BRAIN WO CON INDICATIONS: glf, thinners, unwitnessed TECHNIQUE: Noncontrast 4.5 mm thick angled axial sections acquired from the foramen magnum to the vertex, with coronal and sagittal reformats. For radiation dose reduction, the following was used: automated exposure control, adjustment of mA and/or kV according to patient size. COMPARISON: [facility], CT, CT HEAD/BRAIN WO CON, 07/17/2019, 10:48. FINDINGS: Image quality: Excellent. CSF spaces: Basal cisterns are patent. No extra-axial fluid collections. The ventricles are symmetric in size and shape. Brain: No intracranial bleeds or masses. There is cerebral volume loss for age, with resultant ventricular and sulcal prominence. There are periventricular and deep white matter chronic small vessel ischemic changes. There is intracranial internal carotid artery atherosclerosis. Skull and face: Calvarium and visualized facial bones appear intact, without suspicious lesions. Sinuses: Visualized sinuses and mastoids are clear. IMPRESSION: Oderate microvascular atherosclerotic change in the deep white matter of each hemisphere, no hemorrhage or fracture involving the calvarium is seen. Dictated by: Cristofer Bennett M.D. on 07/18/2019 at 11:51 Approved by: Cristofer Bennett M.D. on 07/18/2019 at 11:51 Chest x-ray: Radiologist's impression: [address] [address] XRay Report Signed Patient: Nola Garcia R#: [id number] : 6Acct:[id number] Age/Sex: 84 / FDate of Service: 07/18/19 Loc: ED Accession Number: [id number] Procedure: XR chest 1V Ordering Provider: Rowena Vidal PROCEDURE: XR CHEST 1V INDICATIONS: weakness, glf TECHNIQUE: One view of the chest was acquired. COMPARISON: [facility], CR, XR CHEST 1V, 10/11/2018, 8:20. FINDINGS: Surgical changes and devices: None. Lungs and pleura: There continues to be a rounded area of increased density within the right superior hilar region, unchanged. No focal consolidation, effusion, or pneumothorax is evident. Mediastinum: Mediastinal contours appear normal. Heart size is normal. There is aortic atherosclerosis. Bones and chest wall: No suspicious bony lesions. Overlying soft tissues appear unremarkable. IMPRESSION: Stable chest. No acute cardiopulmonary process is evident. Dictated by: Polo Herrera M.D. on 07/18/2019 at 10:59 Approved by: Polo Herrera M.D. on 07/18/2019 at 11:00 hip xray : Radiologist's impression: Nola Garcia 84 F 1935 [place] [address] XRay Report Signed Patient: Nola Garcia JMR#: [id number] : 1935cct:[id number] Age/Sex: 84 / FDate of Service: 07/18/19 Loc: ED Accession Number: [id number] Procedure: XR hip w pel if done RT 2V Ordering Provider: Rowena Vidal-ESTELLE PROCEDURE: XR HIP W PEL IF DONE RT 2V INDICATIONS: pain sp glf TECHNIQUE: 2 views of the hip were acquired. COMPARISON: [facility], CR, XR PELVIS WITH LATERAL HIP RIGHT, 05/01/2019, 8:56. FINDINGS: Bones: Postoperative changes related to a left hip arthroplasty are identified. The acetabular component continues to be significantly vertically oriented, which is unchanged since the previous exam without tino dislocation of the components. No periprosthetic fractures are appreciated. Severe degenerative changes of the right hip have significantly progressed in the interim with prominent articular surface collapse along the superior margin of the right femoral head and severe degenerative changes. No displaced fractures are appreciated. Prominent degenerative changes of the lower lumbar spine are evident. Soft tissues: No suspicious soft tissue calcifications or masses. IMPRESSION: 1. 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 2. Status post left hip arthroplasty is unchanged. The acetabular component is vertically oriented, which does predispose the patient for dislocations. No dislocation is evident at this time. 3. Prominent degenerative changes of the lower lumbar spine. Dictated by: Polo Herrera M.D. on 07/18/2019 at 11:01 Approved by: Polo Herrera M.D. on 07/18/2019 at 11:03 t spine: Radiologist's impression: [address] [address] XRay Report Signed Patient: Nola Garcia PHILIPPR#: [id number] : 6Acct:[id number] Age/Sex: 84 / FDate of Service: 07/18/19 Loc: ED Accession Number: [id number] Procedure: XR thoracic spine 2V Ordering Provider: Rowena Vidal- PROCEDURE: XR THORACIC SPINE 2V INDICATIONS: pain sp glf TECHNIQUE: 3 views of the thoracic spine were acquired. COMPARISON: None. FINDINGS: Bones: On the lateral views, the cervicothoracic junction is not well visualized but the alignment through this region appears to be within normal limits. The vertebral body heights are within normal limits throughout the thoracic spine without evidence to suggest acute compression fracture. The bone mineralization is within normal limits. Moderate to severe multilevel degenerative changes of the thoracic spine are identified. Soft tissues: The imaged overlying soft tissues of the chest are within normal limits. IMPRESSION: 1. No acute compression fracture. 2. Moderate degenerative changes of the thoracic spine. Dictated by: Polo Herrera M.D. on 07/18/2019 at 11:03 Approved by: Polo Herrera M.D. on 07/18/2019 at 11:05 CT scan - abdomen: Radiologist's impression: [address] [address] [address] Scan Report Signed Patient: Nola Garcia JMR#: [id number] : 6Acct:[id number] Age/Sex: 84 / FDate of Service: 07/18/19 Loc: ED Accession Number: [id number] Procedure: CT abdomen pelvis wo con Ordering Provider: Rowena Vidal QUALITY ASSURANCE ENGINEER-BC PROCEDURE: CT ABDOMEN PELVIS WO CON INDICATIONS: gi bleed TECHNIQUE: Noncontrast 5 mm thick sections acquired from the diaphragms to the symphysis. 5 mm coronal and sagittal reformats were then performed. For radiation dose reduction, the following was used: automated exposure control, adjustment of mA and/or kV according to patient size. COMPARISON: None. FINDINGS: Image quality: Limited by absence of both oral and intravenous contrast. ABDOMEN: Lung bases: Lung bases are clear. Heart size is normal. Solid organs: Liver is normal in size. Gallbladder appears normal. Pancreas is normal in contours. Spleen is normal in size. No adrenal nodules. Kidneys are normal in size, without hydronephrosis or nephrolithiasis. There is an exophytic simple appearing water density right lateral renal cortical cyst. Peritoneum and bowel: Unenhanced bowel loops demonstrate normal wall thickness and caliber. No free fluid or air. Nodes and vessels: No retroperitoneal or mesenteric adenopathy by size criteria. Aorta and inferior vena cava are normal in caliber. Miscellaneous: No ventral hernias. PELVIS: Genitourinary: Bladder wall thickness is normal. Miscellaneous: No inguinal hernias or adenopathy. The left hip arthroplasty produces metal artifact largely obscured in portions of the lower third of the pelvis. Bones: No suspicious bony lesions. No vertebral body compression fractures. IMPRESSION: 1. No underlying infection or neoplasm is identified. 2. No sign of intestinal obstruction or perforation. 3. There is mild diverticulosis over the lower descending colon and the sigmoid colon but no acute diverticulitis is found. Dictated by: Cristofer Bennett M.D. on 07/18/2019 at 13:54 Approved by: Cristofer Bennett M.D. on 07/18/2019 at 13:57 ECG Data Attestation: I personally reviewed and interpreted this ECG as follows: Interpretation: Atrial fibrillation. Ventricular rate 67. No ectopy noted. No ST elevation or depression. QRS interval 77 MDM Narrative Medical decision making narrative: The patient is an 84-year-old female who presents after multiple ground level falls. She does have significant comorbidities including atrial fibrillation, recent Eliquis utilization, and dementia. Significant drop in hemoglobin was noted, between her visit today and yesterday. Dropped from 10.4-8.9 and she has heme-positive stools. Overall she has grossly negative imaging, but it is very concerning that she has fallen several times at home the past day. I did speak with several specialties including orthopedics as well as surgery, and Dr. Lane came down to evaluate the patient. The patient was admitted to hospitalist service for weakness regarding her GI bleed. Plan for colonoscopy. Patient is okay with this plan. She is hemodynamically stable throughout her stay in the emergency department. States understanding of reason for admission, and is okay with plan. <Rowena Godinez, DO - Last Filed: 07/19/19 07:14> Lab Data Lab Results 07/18/19 07/18/19 07/18/19 Range/Units 11:27 11:27 12:05 WBC 13.7 H (4.5-11.0) X10^3/uL RBC 3.31 L (4.0-5.2) X10^6/uL Hgb 8.9 L (12.0-16.0) g/dL Hct 27.4 L (36-46) % MCV 82.8 (80-100) fL MCH 26.9 (26-34) PG MCHC 32.5 (30-36) % RDW 19.9 H (11.6-14.8) % Plt Count 266 (150-400) X10^3/uL Neut % (Auto) 89.7 H (50-75) % Lymph % (Auto) 7.5 L (25-40) % [place] % (Auto) 2.1 L (3-14) % Eos % (Auto) 0.4 L (2-4) % Baso % (Auto) 0.3 (0-2) % Neut # (Auto) 90319 H (7379-2329) /uL Lymph # (Auto) 1000 L (2378-5958) /uL [place] # (Auto) 300 (0-900) /uL Eos # (Auto) 100 (0-450) /uL Baso # (Auto) 0 (0-100) /uL Sodium 140 (137-145) mmol/L Potassium 4.2 (3.4-5.1) mmol/L Chloride 104 (98-107) mmol/L Carbon Dioxide 24 (22-32) mmol/L BUN 23 H (7-17) mg/dL Creatinine 0.70 (0.52-1.04) mg/dL Estimated GFR > 60.0 (>60) mL/min BUN/Creatinine Ratio 32.9 H (6-22) Glucose 115 H (80-110) mg/dL Calcium 9.1 (8.4-10.2) mg/dL Magnesium 2.2 (1.6-2.3) mg/dL Total Bilirubin 1.2 (0.2-1.3) mg/dL AST 37 H (14-36) IU/L ALT 22 (9-52) IU/L Alkaline Phosphatase 79 (38-126) U/L Total Creatine Kinase 51 (30-135) U/L CK-MB (CK-2) TNP CK-MB (CK-2) Rel Index TNP Troponin I 0.020 (0.01-0.034) ng/mL B-Natriuretic Peptide 164 H (<100) Total Protein 6.5 (6.3-8.2) g/dL Albumin 3.7 (3.5-5.0) g/dL Globulin 2.8 (1.7-4.1) g/dL Albumin/Globulin Ratio 1.3 (1.0-2.8) Urine Color Yellow Urine Appearance Clear Urine pH 5.5 (4.5-8.0) Ur Specific Story 1.020 (1.000-1.035) Urine Protein Negative (Negative) Urine Glucose (UA) Negative (Negative) g/dL Urine Ketones 1+ H (NEGATIVE) Urine Occult Blood Trace-lysed (Negative) Urine Nitrate Negative (Negative) Urine Bilirubin Negative (NEGATIVE) Urine Urobilinogen 0.2 (0.2) E.U./dL Ur Leukocyte Esterase Negative (NEGATIVE) Urine RBC None seen (0-5/HPF) Urine WBC 0-1/hpf (0-5/HPF) Ur Squamous Epith Cells 5-10 /hpf H (0-5/HPF) Amorphous Sediment 3+ Urine Bacteria Occasional (0-1) D (None) Urine Mucus 3+ H (Negative) Ur Culture Indicated? Cult not indicated Blood Type Antibody Screen 07/18/19 07/18/19 07/19/19 Range/Units 17:55 17:55 00:10 WBC 10.1 (4.5-11.0) X10^3/uL RBC 2.86 L (4.0-5.2) X10^6/uL Hgb 8.3 L 7.8 L (12.0-16.0) g/dL Hct 26.1 L 24.1 L (36-46) % MCV 84.5 (80-100) fL MCH 27.4 (26-34) PG MCHC 32.4 (30-36) % RDW 20.2 H (11.6-14.8) % Plt Count 219 (150-400) X10^3/uL Neut % (Auto) (50-75) % Lymph % (Auto) (25-40) % [place] % (Auto) (3-14) % Eos % (Auto) (2-4) % Baso % (Auto) (0-2) % Neut # (Auto) (1937-2789) /uL Lymph # (Auto) (0362-7736) /uL [place] # (Auto) (0-900) /uL Eos # (Auto) (0-450) /uL Baso # (Auto) (0-100) /uL Sodium (137-145) mmol/L Potassium (3.4-5.1) mmol/L Chloride (98-107) mmol/L Carbon Dioxide (22-32) mmol/L BUN (7-17) mg/dL Creatinine (0.52-1.04) mg/dL Estimated GFR (>60) mL/min BUN/Creatinine Ratio (6-22) Glucose (80-110) mg/dL Calcium (8.4-10.2) mg/dL Magnesium (1.6-2.3) mg/dL Total Bilirubin (0.2-1.3) mg/dL AST (14-36) IU/L ALT (9-52) IU/L Alkaline Phosphatase (38-126) U/L Total Creatine Kinase (30-135) U/L CK-MB (CK-2) CK-MB (CK-2) Rel Index Troponin I (0.01-0.034) ng/mL B-Natriuretic Peptide (<100) Total Protein (6.3-8.2) g/dL Albumin (3.5-5.0) g/dL Globulin (1.7-4.1) g/dL Albumin/Globulin Ratio (1.0-2.8) Urine Color Urine Appearance Urine pH (4.5-8.0) Ur Specific Story (1.000-1.035) Urine Protein (Negative) Urine Glucose (UA) (Negative) g/dL Urine Ketones (NEGATIVE) Urine Occult Blood (Negative) Urine Nitrate (Negative) Urine Bilirubin (NEGATIVE) Urine Urobilinogen (0.2) E.U./dL Ur Leukocyte Esterase (NEGATIVE) Urine RBC (0-5/HPF) Urine WBC (0-5/HPF) Ur Squamous Epith Cells (0-5/HPF) Amorphous Sediment Urine Bacteria (None) Urine Mucus (Negative) Ur Culture Indicated? Blood Type O Positive Antibody Screen Negative 07/19/19 Range/Units 05:50 WBC (4.5-11.0) X10^3/uL RBC (4.0-5.2) X10^6/uL Hgb (12.0-16.0) g/dL Hct (36-46) % MCV (80-100) fL MCH (26-34) PG MCHC (30-36) % RDW (11.6-14.8) % Plt Count (150-400) X10^3/uL Neut % (Auto) (50-75) % Lymph % (Auto) (25-40) % [place] % (Auto) (3-14) % Eos % (Auto) (2-4) % Baso % (Auto) (0-2) % Neut # (Auto) (6933-9760) /uL Lymph # (Auto) (8677-1491) /uL [place] # (Auto) (0-900) /uL Eos # (Auto) (0-450) /uL Baso # (Auto) (0-100) /uL Sodium 139 (137-145) mmol/L Potassium 3.4 (3.4-5.1) mmol/L Chloride 108 H (98-107) mmol/L Carbon Dioxide 24 (22-32) mmol/L BUN 10 (7-17) mg/dL Creatinine 0.50 L (0.52-1.04) mg/dL Estimated GFR > 60.0 (>60) mL/min BUN/Creatinine Ratio 20.0 (6-22) Glucose 91 (80-110) mg/dL Calcium 8.1 L (8.4-10.2) mg/dL Magnesium 2.1 (1.6-2.3) mg/dL Total Bilirubin (0.2-1.3) mg/dL AST (14-36) IU/L ALT (9-52) IU/L Alkaline Phosphatase (38-126) U/L Total Creatine Kinase (30-135) U/L CK-MB (CK-2) CK-MB (CK-2) Rel Index Troponin I (0.01-0.034) ng/mL B-Natriuretic Peptide (<100) Total Protein (6.3-8.2) g/dL Albumin (3.5-5.0) g/dL Globulin (1.7-4.1) g/dL Albumin/Globulin Ratio (1.0-2.8) Urine Color Urine Appearance Urine pH (4.5-8.0) Ur Specific Story (1.000-1.035) Urine Protein (Negative) Urine Glucose (UA) (Negative) g/dL Urine Ketones (NEGATIVE) Urine Occult Blood (Negative) Urine Nitrate (Negative) Urine Bilirubin (NEGATIVE) Urine Urobilinogen (0.2) E.U./dL Ur Leukocyte Esterase (NEGATIVE) Urine RBC (0-5/HPF) Urine WBC (0-5/HPF) Ur Squamous Epith Cells (0-5/HPF) Amorphous Sediment Urine Bacteria (None) Urine Mucus (Negative) Ur Culture Indicated? Blood Type Antibody Screen Point of Care Testing Stool Occult Blood Positive Discharge Plan Departure Patient Disposition: Admitted As Inpatient Clinical Impression: Weakness GI (gastrointestinal bleed) Qualifiers: GI bleed type/associated pathology: unspecified gastrointestinal hemorrhage type Qualified Code(s): K92.2 - Gastrointestinal hemorrhage, unspecified Discharge Date/Time: 07/18/19 15:33 Interventions: ED Discharge Assessment Last Done: 07/18/19 15:31 Admit Date/Time: 07/18/19 14:22 Admit Provider: Monse Ureña <Rowena Godinez DO - Last Filed: 07/19/19 07:14> Cosign ED Attending Cosignature Attestation: I was immediately available in the department for consultation. This documentation has been reviewed and I agree with assessment and plan. Supervised by Rowena Godinez DO
[2019-07-18 11:35] LABS: Add Manual Diff / Slide Review NO; Basophils Absolute Auto 0 /uL (0-100); Basophils Percent Auto 0.3 % (0-2); Eosinophils Absolute Auto 100 /uL (0-450); Eosinophils Percent Auto 0.4 % (2-4); Hematocrit 27.4 % (36-46); Hemoglobin 8.9 g/dL (12.0-16.0); Lymphocytes Absolute Auto 1000 /uL (1100-4500); Lymphocytes Percent Auto 7.5 % (25-40); Mean Corpuscular HGB Conc 32.5 % (30-36); Mean Corpuscular Hemoglobin 26.9 PG (26-34); Mean Corpuscular Volume 82.8 fL (80-100); Monocytes Absolute Auto 300 /uL (0-900); Monocytes Percent Auto 2.1 % (3-14); Neutrophils Absolute Auto 12300 /uL (1500-7000); Neutrophils Percent Auto 89.7 % (50-75); Platelet Count 266 X10^3/uL (150-400); Red Blood Cell Count 3.31 X10^6/uL (4.0-5.2); Red Cell Distribution Width 19.9 % (11.6-14.8); White Blood Cell Count 13.7 X10^3/uL (4.5-11.0)
[2019-07-18 11:50] LABS: B Type Natriuretic Peptide 164 (<100)
[2019-07-18 11:56] LABS: Alanine Aminotransferase 22 IU/L (9-52); Albumin 3.7 g/dL (3.5-5.0); Albumin Globulin Ratio 1.3 (1.0-2.8); Alkaline Phosphatase 79 U/L (38-126); Aspartate Aminotransferase 37 IU/L (14-36); BUN Creatinine Ratio 32.9 (6-22); Bilirubin Total 1.2 mg/dL (0.2-1.3); Blood Urea Nitrogen 23 mg/dL (7-17); Calcium 9.1 mg/dL (8.4-10.2); Carbon Dioxide 24 mmol/L (22-32); Chloride 104 mmol/L (98-107); Creatine Kinase 51 U/L (30-135); Estimated Glomerular Filt Rate > 60.0 mL/min (>60); Globulin 2.8 g/dL (1.7-4.1); Glucose 115 mg/dL (80-110); HEMOLYSIS 29 (0-50); Magnesium 2.2 mg/dL (1.6-2.3); Potassium 4.2 mmol/L (3.4-5.1); Sodium 140 mmol/L (137-145); Total Protein 6.5 g/dL (6.3-8.2)
[2019-07-18] MEDS: SODIUM CHLORIDE 0.9% 1,000 ML 250 ML IV (12:05)
[2019-07-18 12:12] LABS: RBC Urine None Seen (0-5/HPF)
[2019-07-18 12:16] LABS: Appearance Urine UA CLEAR; Bilirubin Urine UA NEGATIVE (NEGATIVE); Color Urine UA YELLOW; Glucose Urine UA NEGATIVE (Negative); Ketones Urine UA 1+ (NEGATIVE); Leukocyte Esterase Urine UA NEGATIVE (NEGATIVE); Nitrite Urine UA NEGATIVE (Negative); Occult Blood Urine UA TRACE-LYSED (Negative); Protein Urine UA NEGATIVE (Negative); Urobilinogen Urine UA 0.2 E.U./dL (0.2); pH Urine UA 5.5 (4.5-8.0)
[2019-07-18 12:30] LABS: Squamous Epithelial Cell Urine 5-10 /HPF (0-5/HPF); WBC Urine 0-1/HPF (0-5/HPF)
[2019-07-18 12:31] LABS: Amorphous Sediment Urine 3+; Bacteria Urine Occasional (0-1); Culture Indicated Urine Cult Not Indicated; Mucus Urine 3+ (Negative)
--- NOTE | 2019-07-18 13:55 | DI.CT.S_ITS ---
PROCEDURE: CT ABDOMEN PELVIS WO CON INDICATIONS: gi bleed TECHNIQUE: Noncontrast 5 mm thick sections acquired from the diaphragms to the symphysis. 5 mm coronal and sagittal reformats were then performed. For radiation dose reduction, the following was used: automated exposure control, adjustment of mA and/or kV according to patient size. COMPARISON: None. FINDINGS: Image quality: Limited by absence of both oral and intravenous contrast. ABDOMEN: Lung bases: Lung bases are clear. Heart size is normal. Solid organs: Liver is normal in size. Gallbladder appears normal. Pancreas is normal in contours. Spleen is normal in size. No adrenal nodules. Kidneys are normal in size, without hydronephrosis or nephrolithiasis. There is an exophytic simple appearing water density right lateral renal cortical cyst. Peritoneum and bowel: Unenhanced bowel loops demonstrate normal wall thickness and caliber. No free fluid or air. Nodes and vessels: No retroperitoneal or mesenteric adenopathy by size criteria. Aorta and inferior vena cava are normal in caliber. Miscellaneous: No ventral hernias. PELVIS: Genitourinary: Bladder wall thickness is normal. Miscellaneous: No inguinal hernias or adenopathy. The left hip arthroplasty produces metal artifact largely obscured in portions of the lower third of the pelvis. Bones: No suspicious bony lesions. No vertebral body compression fractures. IMPRESSION: 1. No underlying infection or neoplasm is identified. 2. No sign of intestinal obstruction or perforation. 3. There is mild diverticulosis over the lower descending colon and the sigmoid colon but no acute diverticulitis is found. Dictated by: Cristofer Bennett M.D. on 07/18/2019 at 13:54 Approved by: Cristofer Bennett M.D. on 07/18/2019 at 13:57
--- NOTE | 2019-07-18 14:49 | PM.CN ---
History of Present Illness Date Patient Seen: 07/18/19 Time Patient Seen: 14:00 Chief complaint: GLF Reason for consult: Anemia Requesting provider: Monse Ureña Narrative: The patient is a woman who has fallen several times in last few days. She has been the ER twice. She has had a loss of her hematocrit. She had been on a [place] a band that that has been stopped. I was asked to see her regarding her anemia. She was scheduled to have a colonoscopy and [place] but that was canceled due to illness per her history. She has seen blood in her stool the last couple of days. She had noticed prior to that. But she really had been looking either. 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) Hypertension (Acute) Rheumatoid arthritis (Acute) Surgical History History of total right knee replacement (Acute) Social History household members: spouse Smoking Status: Never smoker Social History household members: spouse Smoking Status: Never smoker Meds Home Medications Medication Instructions Recorded Confirmed Type Enbrel 50 mg SQ QWEEKTH #0 11/12/07 07/18/19 History methotrexate sodium 6 tab PO QWEEKFR #0 11/12/07 07/18/19 History Restasis 1 drp OPHTH PRN PRN #0 10/23/17 07/18/19 History melatonin 3 mg PO BEDTIME PRN #0 10/23/17 07/18/19 History cholecalciferol (vitamin D3) 1,000 unit PO DAILY 04/24/18 07/18/19 History [Vitamin D3] folic acid 1 mg PO DAILY 04/24/18 07/18/19 History metoprolol succinate 50 mg PO BID 04/24/18 07/18/19 History multivitamin 1 tab PO DAILY 04/24/18 07/18/19 History diltiazem HCl 180 mg PO DAILY #30 cap 04/25/18 07/18/19 Rx pantoprazole [Protonix] 40 mg PO DAILY #30 tab 04/25/18 07/18/19 Rx apixaban [Eliquis] 2.5 mg PO BID 10/11/18 07/18/19 History meloxicam 15 mg PO DAILY PRN 10/11/18 07/18/19 History ferrous gluconate 324 mg PO DAILY 07/17/19 07/18/19 History nitroglycerin 0.4 mg SUBLINGUAL Q5-15M PRN 07/17/19 07/18/19 History turmeric 720 mg PO DAILY 07/17/19 07/18/19 History Allergies Allergy/AdvReac Type Severity Reaction Status Date / Time No Known Drug Allergies Allergy Verified 06/11/19 11:30 Review of Systems Review of Systems Patient denies any problems with breathing at this time. Note recent chest pain. She does have intermittent atrial fibrillation. No black bowel movements. She has seen blood in her stools last few days. No seizures or blackouts. No anxiety or depression. Bruises easily. Exam Vital Signs (past 8 hours): - 07/18/19 11:10 07/18/19 12:10 07/18/19 13:02 Temperature 99.0 F Pulse Rate 75 72 73 Respiratory Rate 15 12 15 Blood Pressure 111/58 L Blood Pressure [Left Arm] 100/67 97/58 L Pulse Oximetry 100 100 99 07/18/19 14:00 07/18/19 14:34 Temperature Pulse Rate 64 72 Respiratory Rate 20 15 Blood Pressure Blood Pressure [Left Arm] 94/64 111/55 L Pulse Oximetry 97 100 Oxygen Delivery Method Room Air Narrative Exam Narrative: Operative no apparent distress. Eye shadow is smudged. Eyes are nonicteric. Conjunctivae are pale. Oral mucosa is pink moist no open lesions. Extensive dental work noted. There are no nodes in the neck or supraclavicular areas. Trachea is midline mobile. Thyroid is not enlarged. Lungs are clear to auscultation without rales or rhonchi. Equal percussion. Heart irregularly irregular with a loud blowing systolic murmur heard well at the left sternal border without radiation into the neck. Her abdomen is mildly protuberant soft. There is no hernia appreciated in the ventral wall. No tenderness. Liver and spleen are not palpably enlarged. There is no bony tenderness of the scalp face chest wall pelvis. Patient is quite conversant. Not sure how accurate all of her information is however. Objective Labs Result Diagrams: 07/18/19 11:27 07/18/19 11:27 Labs: Laboratory Results - last 24 hr 07/18/19 07/18/19 07/18/19 11:27 11:27 12:05 WBC 13.7 H RBC 3.31 L Hgb 8.9 L Hct 27.4 L MCV 82.8 MCH 26.9 MCHC 32.5 RDW 19.9 H Plt Count 266 Neut % (Auto) 89.7 H Lymph % (Auto) 7.5 L [place] % (Auto) 2.1 L Eos % (Auto) 0.4 L Baso % (Auto) 0.3 Neut # (Auto) 87131 H Lymph # (Auto) 1000 L [place] # (Auto) 300 Eos # (Auto) 100 Baso # (Auto) 0 Sodium 140 Potassium 4.2 Chloride 104 Carbon Dioxide 24 BUN 23 H Creatinine 0.70 Estimated GFR > 60.0 BUN/Creatinine Ratio 32.9 H Glucose 115 H Calcium 9.1 Magnesium 2.2 Total Bilirubin 1.2 AST 37 H ALT 22 Alkaline Phosphatase 79 Total Creatine Kinase 51 CK-MB (CK-2) TNP CK-MB (CK-2) Rel Index TNP Troponin I 0.020 B-Natriuretic Peptide 164 H Total Protein 6.5 Albumin 3.7 Globulin 2.8 Albumin/Globulin Ratio 1.3 Urine Color Yellow Urine Appearance Clear Urine pH 5.5 Ur Specific [place] 1.020 Urine Protein Negative Urine Glucose (UA) Negative Urine Ketones 1+ H Urine Occult Blood Trace-lysed Urine Nitrate Negative Urine Bilirubin Negative Urine Urobilinogen 0.2 Ur Leukocyte Esterase Negative Urine RBC None seen Urine WBC 0-1/hpf Ur Squamous Epith Cells 5-10 /hpf H Amorphous Sediment 3+ Urine Bacteria Occasional (0-1) D Urine Mucus 3+ H Ur Culture Indicated? Cult not indicated Assessment & Plan Assessment & Plan narrative: Patient with anemia and acute blood loss and intestinal bleeding. Recommend EGD and colonoscopy. I discussed bowel prep and the procedure with an upper and lower GI endoscopy with the patient. I have discussed the procedure and the rationale with the patient including risks of bleeding, perforation which would necessitate a major operation, failure to find remove all lesions and the potential to tattoo. They appeared to understand and wished to proceed. Placed on the schedule of under general anesthesia due to her dementia, her medical problems and concern over those issues during the procedure.
[2019-07-18] MEDS: BISACODYL 5 MG TABLET 10 MG PO (16:56)
[2019-07-18 18:20] LABS: Hematocrit 26.1 % (36-46); Hemoglobin 8.3 g/dL (12.0-16.0)
--- NOTE | 2019-07-18 20:31 | PM.HP.1 ---
History of Present Illness Date Patient Seen: 07/18/19 Time Patient Seen: 20:05 Chief complaint: GLF Narrative: Ms. Nola Garcia is an 84-year-old female patient with a history significant for atrial fibrillation anticoagulated on Eliquis, hypertension, dementia and rheumatoid arthritis who presents to the ER today following 3 falls in the last 24 hours. The patient was seen in the ER yesterday where she was evaluated following hitting her head and discharged home and fell again today prompting her return. The patient states she ?gets weak and falls.? Today she complains of right hip pain. It is also reported by a friend that the patient has been more confused over the last 3 days. The patient has been on Eliquis for atrial fibrillation. The patient is unable to provide details of her medications due to her advanced dementia. The patient examined lying in bed a denies complaints of pain but believe she is in a hotel. She denies head pain though does acknowledge bruise to her left forehead where she has ecchymoses. She denies loss of consciousness neck or back pain. She denies chest pain and acknowledges occasional palpitations. She denies shortness of breath, exertional dyspnea, cough or wheezing. She reports no complaints of abdominal pain, nausea or vomiting. It is unclear from the information provided by the patient whether she was or was not having bloody stools. Per report from the ER provider the patient was to have a colonoscopy and Eliquis stopped but is unknown whether this occurred. Upon arrival in the ER the patient has a temperature of 99.0?, heart rate of 75, blood pressure 111/58, respirations 15 saturating 100% on room air. CT of the abdomen finds mild diverticulosis of the descending colon and sigmoid colon. She had a CT of the head done yesterday which was negative for intracranial pathology. 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 Chest x-rays taken which finds no acute processes. On laborator analysis the patient has a white count of 13.7, hemoglobin of 8.9 and hematocrit of 27.4 which is down from her previous 10.4 and 32.4. Her electrolytes are within normal limits and she has a BUN of 23 and creatinine is 0.7. Her nonfasting glucose is 115. She has a bilirubin of 1.2 AST of 37, ALT of 22 and alkaline phosphatase 79. Her cardiac markers are negative she does have slightly elevated BNP of 164. Her urinalysis is unremarkable. Patient History Medical History Atrial fibrillation (Acute) H/O: hysterectomy (Acute) 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) Hypertension (Acute) Rheumatoid arthritis (Acute) Surgical History History of total right knee replacement (Acute) Social History household members: spouse Smoking Status: Never smoker Family & Social History Social History: household members spouse Prior Living Arrangements House Safety & Behavioral: Feels Safe in Current Yes Environment Been Physically Hurt or No Threatened By a Person Suicidal Ideation Description None Suicide Plan Description No Plan Tobacco & Substance use: Smoking Status Never smoker alcohol intake frequency holiday/special occasion Substance Use Type does not use Comment: The patient lives in a single family home with her 90-year-old do she has been for over 50 years. She states both parents are her father having from bladder cancer and her mother had multiple medical problems which she cannot recall. She has no siblings and is an only child and has no children. Smoking: Tried smoking as a teen only, nonsmoker Alcohol: Consumes occasional wine Substance use: Patient denies recreation pharmaceuticals herbal or cannabis products. Advanced directives: The patient a case she does have advanced directives on file and states her desire to be FULL CODE. She designates her as her surrogate decision maker or her cousin Brian. Meds Home Medications Medication Instructions Recorded Confirmed Type Enbrel 50 mg SQ QWEEKTH #0 11/12/07 07/18/19 History methotrexate sodium 6 tab PO QWEEKFR #0 11/12/07 07/18/19 History Restasis 1 drp OPHTH PRN PRN #0 10/23/17 07/18/19 History melatonin 3 mg PO BEDTIME PRN #0 10/23/17 07/18/19 History cholecalciferol (vitamin D3) 1,000 unit PO DAILY 04/24/18 07/18/19 History [Vitamin D3] folic acid 1 mg PO DAILY 04/24/18 07/18/19 History metoprolol succinate 50 mg PO BID 04/24/18 07/18/19 History multivitamin 1 tab PO DAILY 04/24/18 07/18/19 History diltiazem HCl 180 mg PO DAILY #30 cap 04/25/18 07/18/19 Rx pantoprazole [Protonix] 40 mg PO DAILY #30 tab 04/25/18 07/18/19 Rx apixaban [Eliquis] 2.5 mg PO BID 10/11/18 07/18/19 History meloxicam 15 mg PO DAILY PRN 10/11/18 07/18/19 History ferrous gluconate 324 mg PO DAILY 07/17/19 07/18/19 History nitroglycerin 0.4 mg SUBLINGUAL Q5-15M PRN 07/17/19 07/18/19 History turmeric 720 mg PO DAILY 07/17/19 07/18/19 History Allergies Allergy/AdvReac Type Severity Reaction Status Date / Time No Known Drug Allergies Allergy Verified 06/11/19 11:30 Review of Systems Review of Systems All systems reviewed & are unremarkable except as noted in HPI and below Exam Vital Signs (past 8 hours): - 07/18/19 13:02 07/18/19 14:00 07/18/19 14:34 Temperature Pulse Rate 73 64 72 Respiratory Rate 15 20 15 Blood Pressure Blood Pressure [Left Arm] 97/58 L 94/64 111/55 L Pulse Oximetry 99 97 100 07/18/19 15:20 07/18/19 19:40 Temperature 99.2 F 99.1 F Pulse Rate 67 87 Respiratory Rate 16 18 Blood Pressure 114/53 L 108/64 Blood Pressure [Left Arm] Pulse Oximetry 98 Oxygen Delivery Method Room Air Oxygen Flow Rate 0 Narrative Exam Narrative: GENERAL APPEARANCE: well developed, well nourished, in no acute distress. HEAD: Normocephalic, 1.5 cm contusion over her left eyebrow, no scalp lesions. EYES: pupils equal, round, reactive to light and accommodation, sclera non-icteric, extraocular movement intact without nystagmus. EARS: normal external structures, no ear pain NOSE: sinuses non tender to percussion, no rhinorrhea ORAL CAVITY: mucosa moist without lesions or exudate, palate normal, tongue in midline. THROAT: normal, no erythema, no exudate, posterior pharynx normal. NECK/THYROID: neck supple, no jugular venous distention, no carotid bruit, no thyromegaly, trachea midline. LYMPH NODES: no cervical or supraclavicular lymphadenopathy. SKIN: warm and dry, no suspicious lesions, redness warmth and tenderness bilateral lower extremities, psoriatic lesions bilateral lower extremities. HEART: regular rate and rhythm, S1-S2 1/6 systolic murmur, no rubs or gallops, brisk capillary refill, 1 to 2+ edema bilateral lower extremities LUNGS: clear to auscultation bilaterally, no coarseness crackles or wheezing, no cough present CHEST: Symmetrical movement, no accessory muscle use, no pain to AP and lateral compression. ABDOMEN: Soft, no distention, no epigastric or abdominal tenderness on palpation, no guarding or peritoneal signs, no organomegaly, no flank or suprapubic tenderness, active bowel tones. BACK: Normal curvature, nontender to palpation, no CVA tenderness on percussion EXTREMITIES: moves all extremities, strength is 5/5 and symmetrical, no deformities or joint effusions. NEUROLOGIC: Awake and alert, oriented to person only, cranial nerves II-XII grossly intact , motor strength normal upper and lower extremities, sensory exam intact to light touch, hearing grossly normal to speech. PSYCH: alert with impaired cognition and impaired recall, guarded behaviors. Objective Labs Result Diagrams: 07/19/19 00:10 07/18/19 11:27 Labs: Laboratory Results - last 24 hr 07/18/19 07/18/19 07/18/19 11:27 11:27 12:05 WBC 13.7 H RBC 3.31 L Hgb 8.9 L Hct 27.4 L MCV 82.8 MCH 26.9 MCHC 32.5 RDW 19.9 H Plt Count 266 Neut % (Auto) 89.7 H Lymph % (Auto) 7.5 L [place] % (Auto) 2.1 L Eos % (Auto) 0.4 L Baso % (Auto) 0.3 Neut # (Auto) 96962 H Lymph # (Auto) 1000 L [place] # (Auto) 300 Eos # (Auto) 100 Baso # (Auto) 0 Sodium 140 Potassium 4.2 Chloride 104 Carbon Dioxide 24 BUN 23 H Creatinine 0.70 Estimated GFR > 60.0 BUN/Creatinine Ratio 32.9 H Glucose 115 H Calcium 9.1 Magnesium 2.2 Total Bilirubin 1.2 AST 37 H ALT 22 Alkaline Phosphatase 79 Total Creatine Kinase 51 CK-MB (CK-2) TNP CK-MB (CK-2) Rel Index TNP Troponin I 0.020 B-Natriuretic Peptide 164 H Total Protein 6.5 Albumin 3.7 Globulin 2.8 Albumin/Globulin Ratio 1.3 Urine Color Yellow Urine Appearance Clear Urine pH 5.5 Ur Specific [place] 1.020 Urine Protein Negative Urine Glucose (UA) Negative Urine Ketones 1+ H Urine Occult Blood Trace-lysed Urine Nitrate Negative Urine Bilirubin Negative Urine Urobilinogen 0.2 Ur Leukocyte Esterase Negative Urine RBC None seen Urine WBC 0-1/hpf Ur Squamous Epith Cells 5-10 /hpf H Amorphous Sediment 3+ Urine Bacteria Occasional (0-1) D Urine Mucus 3+ H Ur Culture Indicated? Cult not indicated Blood Type Antibody Screen 07/18/19 07/18/19 17:55 17:55 WBC RBC Hgb 8.3 L Hct 26.1 L MCV MCH MCHC RDW Plt Count Neut % (Auto) Lymph % (Auto) [place] % (Auto) Eos % (Auto) Baso % (Auto) Neut # (Auto) Lymph # (Auto) [place] # (Auto) Eos # (Auto) Baso # (Auto) Sodium Potassium Chloride Carbon Dioxide BUN Creatinine Estimated GFR BUN/Creatinine Ratio Glucose Calcium Magnesium Total Bilirubin AST ALT Alkaline Phosphatase Total Creatine Kinase CK-MB (CK-2) CK-MB (CK-2) Rel Index Troponin I B-Natriuretic Peptide Total Protein Albumin Globulin Albumin/Globulin Ratio Urine Color Urine Appearance Urine pH Ur Specific [place] Urine Protein Urine Glucose (UA) Urine Ketones Urine Occult Blood Urine Nitrate Urine Bilirubin Urine Urobilinogen Ur Leukocyte Esterase Urine RBC Urine WBC Ur Squamous Epith Cells Amorphous Sediment Urine Bacteria Urine Mucus Ur Culture Indicated? Blood Type O Positive Antibody Screen Negative Assessment & Plan Assessment & Plan narrative: The patient is admitted to the hospital with 3 falls in the last 24 hours with finding of lower GI bleed on Eliquis. 1. Acute blood loss anemia related to gastrointestinal bleeding, present on admission. -The patient has sustained a 2 g decrease in her hemoglobin. She was to have a colonoscopy and stop Eliquis and is unclear whether this occurred. Will hold meloxicam. -agree with Protonix 40 mg daily -heme-positive stool with patient reporting and on clear history of melena. Plan for colonoscopy. -thank you Dr. Lane for your evaluation and treatment of this patient. -will monitor hemoglobin and hematocrit. 2. Frequent falls, acute, active -patient with 3 falls in the last 24 hours with 2 visits to the emergency department. -contusion over left eye with negative CT, right hip pain with finding of avascular necrosis with severe degenerative joint disease. -prior left total hip arthroplasty is stable would benefit from orthopedic evaluation for right hip as outpatient. -PT and OT to evaluate and treat. -hold meloxicam. 3. Chronic Dementia, unclear type, active. -the patient lives with her 90-year-old . -will request long term care social worker consult to evaluate cognitive function/mental status and safety of living situation. 4. Chronic Atrial fibrillation, stable -no complaints of chest pain, shortness of breath. -continue home medications of diltiazem 180 mg daily and metoprolol succinate 50 mg twice daily. 5. Chronic Hypertension, stable -blood pressures is acceptable with admission blood pressure 111/58. -continue home medications of diltiazem 180 mg daily and metoprolol succinate 50 mg twice daily. 6. Rheumatoid arthritis, chronic, stable. -at this time will hold patient's home medication of methotrexate related to anemia and bleeding. The patient is admitted to the hospital secondary to acute blood loss anemia from GI bleeding with plan for colonoscopy tomorrow. The patient is admitted as observation with expected length this date to be less than 2 midnights. Scores GCS [place] coma scale eye opening: Spontaneous Lis[place] coma scale verbal response: Confused [place] coma scale motor response: Obey commands [place] coma scale total score: 14 Quality VTE Deep Vein Thrombosis/Pulmonary Embolism Present on Admission: No
[2019-07-18] MEDS: METOPROLOL ER 50 MG TABLET PO (21:15)
[2019-07-18] MEDS: MAGNESIUM CITRATE 300 ML SOLUTION 150 ML PO (21:16)
[2019-07-18] MEDS: FLEETS ENEMA 1 EACH PR (21:17)
[2019-07-18] MEDS: SODIUM CHLORIDE 0.9% 1,000 ML 100 ML IV (21:17)
--- NOTE | 2019-07-18 23:52 | PC.NURSE ---
Evening Shift/admit Note- Patient arrived to room from ER via stretcher. Admission questions done to best ability. physical assessment done. Patient alert to self only. History of dementia. Frequent reminders and frequent visualchecks. safety jeasure sin place. Call arango and phone within reach. will continue to monitor.
[2019-07-19] VITALS (25 sets, daily range): BP systolic 78–116; BP diastolic 38–77; PULSE 47–97; RESP 10–20; TEMP 35.6–37.1; O2SAT 91–100; BMI 36.8
--- NOTE | 2019-07-19 | PATH_ITS ---
[facility] Accession Number: [id number] . 01 Material submitted: . gastrointestinal site - GASTRIC TUMOR . 01 Clinical history: . GLF . 02 Diagnosis: Gastric Tumor, Biopsy: Invasive adenocarcinoma, poorly differentiated, consistent with gastrointestinal origin. . GASTRIC HER2 BIOMARKER RESULTS: HER2 (4B5): Negative (1+). . COMMENT: Testing performed on Block Number: A1. The criteria used is based on the ToGA Trial 6 for Scoring HER2 Expression by Immunohistochemistry (IHC) in Gastric and Esophagogastric Junction Adenocarcinoma. [facility]/07/24/2019 . 02 Comment: As part of routine senior quality assurance specialist, Drs. 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 . The finding of a poorly differentiated malignant neoplasm was reported to Dr. Aviles via his nurse, Lisa, by Dr. Donohue on 07/22/2019. . 02 Electronically signed: . Joseph Brewer MD, PhD, Pathologist NPI- [id number] . 01 Gross description: . GASTRIC TUMOR: Received in formalin are multiple fragment(s) of [place], soft tissue measuring 1.3 x 0.6 x 0.3 cm in aggregate submitted entirely in 1 cassette(s) /CKI /CKI . 02 Microscopic: . Sections are of ulcer and fibrotic stroma infiltrated by a proliferation of highly atypical epithelioid cells forming irregular cords. A mucin stain highlights several foci of intracellular mucin. To better classify the malignant cells, a panel of immunohistochemcal stains is performed (each with an approriately positive control) with the following findings: . LONG: Positive. CDX2: Variably positive. Villin: Variably positive. CK7: Variably positive. CK20: Variably positive. CD117: Negative. DOG1: Variably weak positive (nonspecific). S100: Negative. . 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 A HER2 immunohistochemical stain is negative (1+) for overexpression. . * This test was developed and its performance characteristics determined by [employer]. It has not been cleared or approved by the U.S. Food and Drug Administration. The FDA has determined that such clearance or approval is not necessary. This test is used for clinical purposes. It should not be regarded as investigational or for research. . 02 Pathologist provided ICD-10: C16.9 . 02 CPT . 108021, J19532, U38003, [id number] Performed at: 01 [facility] [address] [id number] MD Desean Branch MD Phone: [phone] Performed at: 02 [facility] [id number] [place] [id number] MD Krystal Donohue MD Phone: [phone]
[2019-07-19 00:25] LABS: Hematocrit 24.1 % (36-46); Hemoglobin 7.8 g/dL (12.0-16.0); Mean Corpuscular HGB Conc 32.4 % (30-36); Mean Corpuscular Hemoglobin 27.4 PG (26-34); Mean Corpuscular Volume 84.5 fL (80-100); Platelet Count 219 X10^3/uL (150-400); Red Blood Cell Count 2.86 X10^6/uL (4.0-5.2); Red Cell Distribution Width 20.2 % (11.6-14.8); White Blood Cell Count 10.1 X10^3/uL (4.5-11.0)
[2019-07-19] MEDS: ACETAMINOPHEN 325 MG TABLET 650 MG PO ×3 (01:48→21:27)
[2019-07-19] MEDS: CEFAZOLIN 1 GM/50 ML FROZ.PIGGY IV ×3 (03:00→17:57)
--- NOTE | 2019-07-19 03:20 | PC.NURSE ---
Shift note: Received pt from evening shift. Pt is alert to name, , and age, reports that it is 1988 and that she is in [place], she is pleasantly confused. At times appears to be oriented but statements demonstrate confusion and memory loss such as asking PERSONAL DEVELOPMENT COACH to call my dad to come pick me up and that she needs to get out of here to go to the bar. Pt attempts to exit the bed but d/t right hip pain can only get her legs to dangle to the edge of the bed and then requires 1PA to get back into bed, pt ambulates with [facility] to [facility] and has had fecal and urinary incontinence. Pt reported 6/10 pain in right hip that was medicated with 650mg PO APAP with good relief. Pt has disconnected her telemetry several times and figits with her linens and lines and reports I've never done anything like this before when asked if she needs help with anything. Pt has not demonstrated use of her call light and is in a view room for safety. Pt is a high fall risk d/t multiple falls in the last 24 hours, mentation, and weak gait.
[2019-07-19 06:20] LABS: HEMOLYSIS < 15 (0-50); Sodium 139 mmol/L (137-145)
[2019-07-19 06:23] LABS: Blood Urea Nitrogen 10 mg/dL (7-17); Calcium 8.1 mg/dL (8.4-10.2); Carbon Dioxide 24 mmol/L (22-32); Chloride 108 mmol/L (98-107); Estimated Glomerular Filt Rate > 60.0 mL/min (>60); Glucose 91 mg/dL (80-110); Magnesium 2.1 mg/dL (1.6-2.3); Potassium 3.4 mmol/L (3.4-5.1)
[2019-07-19] MEDS: FOLIC ACID 1 MG TABLET PO (08:08)
[2019-07-19] MEDS: MULTIVITAMIN 1 TABLET 1 TAB PO (08:08)
[2019-07-19] MEDS: PANTOPRAZOLE 40 MG TABLET PO (08:08)
[2019-07-19] MEDS: METOPROLOL ER 50 MG TABLET PO (08:08)
[2019-07-19] MEDS: dilTIAZem CD 180 MG CAP PO (08:09)
[2019-07-19] MEDS: SODIUM CHLORIDE 0.9% 1,000 ML 100 ML IV (08:19)
--- NOTE | 2019-07-19 10:26 | PC.NURSE ---
Pt on ICU tele monitoring. Bradying to low fourties multiple times. Nurse Claudia notified. Pt given PO Dilt this am prior to surgery. Recommended checking if pt was symptomatic at all, rechecking vitals and notifying the OR prior to surgery.
--- NOTE | 2019-07-19 10:44 | PT.IIE ---
Surgery Performed Operation Date: 07/19/19 12:45 <No data on this case meets the specified criteria> Surgical History (Last Reviewed 07/19/19 @ 02:20 by MANJEET Goins) History of total right knee replacement (Acute) Medical History (Last Reviewed 07/19/19 @ 02:20 by MANJEET Goins) Atrial fibrillation (Acute) H/O: hysterectomy (Acute) 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) Hypertension (Acute) Rheumatoid arthritis (Acute) Physical Therapy Inpatient Evaluation/Re-Eval M1 PT/OT-IP Prior Functional Status Start: 07/19/19 08:08 Freq: NEEDED Status: Active Protocol: Document 07/19/19 10:13 (Rec: 07/19/19 10:44 [email or web address]) Medical Review Prior Functional Status Diet/Fluid Consistency NPO Communication Advanced Dementia at baseline with poor short term memory. Able to follow commands and make needs known. Mobility and Gait Pt was able to recall her 3 falls within the past few days . She stated had been using FWW recently due to weakness and poor balance. Activities of Daily Living and IADL's SW is still acquiring pt's social hx and PLOF. Pt stated she was independent for ADLs and IADLs Social History Household Members spouse Living Arrangements House Number of Floors (Floors) One Floor Number of Stairs To Enter/Railing? 2 HERIBERTO for front entrance but pt does not remember if she has rails 2 HERIBERTO from garage entrace with 2 rails Home Environment Standard Height Toilet Walk in Shower Home Equipment Front Wheel Walker Straight Cane Shower Seat with Backrest Grab Bars In Shower Employment Status Retired Additional Social History Comment Per SW, They are still acquiring pt's social hx and PLOF. Pt apparently will go to SNF after hospitalization and Vilma Graham MPH will be her guardian. Per EMR, Pt lives with her who is 90 yo. They do not have any children. PMH inclues atrial fibrillation anticoagulated on Eliquis, hypertension, dementia and rheumatoid arthritis who presents to the ER today following 3 falls in the last 24 hours. The patient was seen in the ER 2 days ago where she was evaluated following hitting her head and discharged home and fell again yesterday prompting her return. M2 PT-IP Current Condition Start: 08/23/19 08:08 Freq: NEEDED Status: Active Protocol: Document 07/19/19 10:13 (Rec: 07/19/19 10:44 [email or web address]) Physical Therapy Current Condition Current Condition Evaluation Date 07/19/19 Treatment Diagnosis anemia and acute blood loss and intestinal bleeding, AMS, weakness, falls Onset Date 07/18/19 Weight Bearing Status Weight Bearing Status Weight Bear as Tolerated M3 PT-IP Subjective Start: 07/19/19 08:08 Freq: NEEDED Status: Active Protocol: Document 07/19/19 10:13 (Rec: 07/19/19 10:44 [email or web address]) Subjective Physical Therapy Visit Type Type Initial Evaluation Visit Start Time 09:26 Visit Stop Time 09:52 Total Visit Minutes 26 Notes Per RN, pt is a poor historian. Number of [employer] Visits 0 Physical Therapy Visit Comments Patient Comments I want to get up. Patient Goals To return home. Therapy Pain Assessment Pain When Pain Assessed During Mobility Pain Present Pain Present Pain Reported Location Right Leg Intensity 4 Scale Used [place] (Faces) Description Aching Pain Management Techniques Timing of Activity with Medications M4 PT-IP Mobility and Gait Start: 07/19/19 08:08 Freq: NEEDED Status: Active Protocol: Document 07/19/19 10:13 (Rec: 07/19/19 10:44 [email or web address]) PT-Bed Mobility Assessment Rolling Type of Rolling Roll to Right Level of Assist Contact Guard Assistance Supine to Sit Supine to Sit Contact Guard Assistance Head of Bed Elevated Bedrails Scooting Scooting to Edge of Bed Contact Guard Assistance Scooting Up and Down in Bed Contact Guard Assistance PT-Transfer Assessment Sit to and From Stand Sit to and from Stand Minimal Assistance 1 Person Assistance Equipment Transfer Assistive Device Gait Belt Front Wheeled Walker Orthotic/Prosthetic Devices or Brace: No Transfers Transfer Destination Bed Chair Transfer Technique Stand Step Pivot Transfer Ability Level of Assist Minimal Assistance Comments Mobility Comments Pt was in bed upon assessment. She is alert but only know her name, and how she was admitted to . She said she is in somewhere in [place] . Pt was able to follow commands but very forgetful. Needed min cues to keep her walker for mobility. Pt was able to get OOB and stand up with CGA/min A. She did c/o pain at R hip but did not affect her much. Pt was quite steady during assessment and did not have any LOB episode. Gait Assessment Gait Gait Assistance Required: Contact Guard Assist Distance (Feet) 180 Able to Maintain Weight Bearing Status Yes During Gait Assistive Devices Assistive Device Gait Belt Front Wheeled Walker Orthotic/Prosthetic Devices or Brace: No Gait Deviations General Gait Pattern Antalgic Decreased Stride Length Decreased Feet Clearance Lateral Trunk Lean Factors Limiting Gait Function Factors Limiting Gait Function Decreased Activity Tolerance Decreased Strength Limited Range of Motion Pain Poor Balance Poor Safety Awareness Comments Gait Comments Pt amb from her room to hallway for approx ~180 with FWW CGA. She did present an antalgic gait with L hip drop due to her R hip pain. But she was quite steady and safe during amb. She did attempt to amb from sink to bedside chair without AD for once and required cues to remind her. PT-Balance Assessment Sitting Balance and Reactions Static Sitting Balance Ability Normal Dynamic Sitting Balance Ability Normal Standing Balance and Reactions Static Standing Balance Ability Good Dynamic Standing Balance Ability Good Device Used FWW M5 PT-IP Objective Assessments Start: 07/19/19 08:08 Freq: NEEDED Status: Active Protocol: Document 07/19/19 10:13 (Rec: 07/19/19 10:44 [email or web address]) Orientation Orientation/Cognition Level of Alertness Alert Orientation Name Birthday Situation Language Function Ability No Deficits Noted Safety Awareness Understands Safety Issues Memory Description Short Term Impaired Gross Range of Motion Upper Extremity ROM Assessment Within Functional Limits Lower Extremity ROM Assessment Right Impaired Strength Upper Extremity Strength Assessment Within Functional Limits Lower Extremity Strength Assessment Right Impaired Hip 3+/5 Knee 4/5 Coordination Assessment Gross Coordination Gross Coordination WNL Sensation Assessment Sensation Gross Sensation WNL Muscle Tone Muscle Tone WNL Yes M6 PT-IP Treatment Start: 07/19/19 08:08 Freq: NEEDED Status: Active Protocol: Document 07/19/19 10:13 (Rec: 07/19/19 10:44 [email or web address]) Physical Therapy Treatment Education Education Provided Safety M7 PT-IP Assessment and Plan Start: 07/19/19 08:08 Freq: NEEDED Status: Active Protocol: Document 07/19/19 10:13 (Rec: 07/19/19 10:44 [email or web address]) PT Summary Assessment and Plan Potential Rehabilitation Potential Excellent Status of Condition at Evaluation Stable Summary Impairments Pain ROM Strength Balance Cognition Bed Mobility Transfers Gait Activity Tolerance Assessment Summary Pt is a low complexity who was admitted to [facility] due to anemia, acute blood loss and intestinal bleeding, AMS, weakness, and 3 falls within 24 hours. Pt appears improved alertness today but she could only recall her name, and situation. She was able to follow commands but did have poor short term memory. She overall did mobility , transfers and amb with FWW with CGA to min A. She did need min cues for walker management and safety awareness but did not shows any LOB. SW is still acquiring pt's social hx and PLOF, but believe pt is at somewhat close to baseline regarding of her mobility. Pt apparently will go to SNF after hospitalization due to her advanced dementia and Vilma Graham, MPH will be her guardian. Will cont follow up with SW for d/c planning updates. Goals Bed Mobility Goal Standby Assistance Transfer Goal Standby Assistance Front Wheeled Walker Gait Goal Standby Assistance Front Wheel Walker Gait Distance 500 Days to Meet Goals 5 Frequency of Treatment Frequency Of Treatment Once a Day Treatment Plan Physical Therapy Treatment Plan Bed Mobility Training Transfer Training Gait Training Therapeutic Exercise Balance Retraining Discharge Planning Hot or Cold Pack Neuromuscular Re-ed Other Recommendations and Next Treatment balance training as owen Focus safety awareness. Recommendations To Nursing Amount of Assist Needed 1 Person Assist Discharge Recommendations PT Discharge Recommendations SNF Rehab Other Discharge Recommendations Pt apparently will go to SNF after hospitalization due to her advanced dementia and Vilma Graham, MPH will be her guardian. Will cont follow up with for d/c planning updates.
[2019-07-19] MEDS: SODIUM CHLORIDE 0.9% 250 ML IV (11:40)
--- NOTE | 2019-07-19 11:53 | PM.PN.1 ---
Subjective Date Patient Seen: 07/19/19 Interval history: Nola Garcia is an 84-year-old female patient with a history significant for atrial fibrillation anticoagulated on Eliquis, hypertension, dementia and rheumatoid arthritis who presented to the ED following 3 ground level falls and found to have acute blood loss anemia secondary to GI bleed. The patient is resting in bed comfortably. She has advanced dementia at baseline and is alert and oriented to person only. She endorses pain in her legs and back to nursing staff then several minutes later denies pain to me during my exam. She was prepped and NPO overnight for EGD and possible colonoscopy today. Received phone call from a Dr. Aviles after EGD, in which he reports he found a fungating mass in her gastrin with stigmata of bleeding/oozing. Recommended monitoring of blood counts over night, transfusion if needed, and discharge once blood counts are stable likely tomorrow. The patient is not a surgical candidate due to advanced dementia, comorbidities and her age. Plan for follow-up with general surgery once biopsies resulted and possible oncology referral. She currently denies headache, shortness of breath, chest pain, abdominal pain, nausea, vomiting, fever, chills, dysuria, diarrhea or constipation. She is voiding and eliminating without difficulty. She has generalized weakness with recurrent falls and have ordered physical and occupational therapy which are pending and likely to be obtained tomorrow so patient is up only with assistance. Exam Vital Signs (past 8 hours): - 07/19/19 07:48 07/19/19 11:01 Temperature 97.0 F L 98.7 F Pulse Rate 93 H 73 Respiratory Rate 16 16 Blood Pressure 116/54 L 87/50 L Pulse Oximetry 99 98 Oxygen Delivery Method Room Air Oxygen Flow Rate 0 Narrative Exam Narrative: General: Elderly female lying in bed and in no acute distress, well-developed, well-nourished, advanced dementia at baseline, alert oriented to person only, poor historian but appropriately interactive otherwise. HEENT: Normocephalic, traumatic. Small abrasion over left eyebrow. Patient thought to have contusion/ecchymoses of eyes however, a removable and was likely makeup. External ears without defect. Pupils equal, round, and reactive to light. Anicteric sclerae, moist conjunctivae, and no lid lag. Oropharynx free of erythema and cobble stoning with moist mucosa. Neck: Supple with full range of motion. No jugular venous distension. No lymphadenopathy or thyromegaly. Cardiovascular: Irregularly irregular without murmurs, rubs, or gallops appreciated. Pulmonary: Clear to auscultation bilaterally without crackles, wheezes, or rhonchi. Normal respiratory effort with no use of accessory muscles. Abdomen: Soft, bowel sounds present, nontender, nondistended. No hepatosplenomegaly or masses appreciated. Extremities: No clubbing or cyanosis. Mild bipedal edema. Skin: Normal temperature, turgor, and texture; no ulcers, or subcutaneous nodules appreciated. Seborrhea keratoses scattered throughout entire body/skin. Neurological: Cranial nerves grossly intact. Psychiatric: Normal mood and affect. Alert and oriented to person only. Objective Labs Result Diagrams: 07/19/19 12:05 07/19/19 12:05 Labs: Laboratory Results - last 24 hr 07/18/19 07/18/19 07/18/19 11:27 12:05 17:55 WBC RBC Hgb 8.3 L Hct 26.1 L MCV MCH MCHC RDW Plt Count Sodium 140 Potassium 4.2 Chloride 104 Carbon Dioxide 24 BUN 23 H Creatinine 0.70 Estimated GFR > 60.0 BUN/Creatinine Ratio 32.9 H Glucose 115 H Calcium 9.1 Magnesium 2.2 Total Bilirubin 1.2 AST 37 H ALT 22 Alkaline Phosphatase 79 Total Creatine Kinase 51 CK-MB (CK-2) TNP CK-MB (CK-2) Rel Index TNP Troponin I 0.020 Total Protein 6.5 Albumin 3.7 Globulin 2.8 Albumin/Globulin Ratio 1.3 Urine Color Yellow Urine Appearance Clear Urine pH 5.5 Ur Specific [place] 1.020 Urine Protein Negative Urine Glucose (UA) Negative Urine Ketones 1+ H Urine Occult Blood Trace-lysed Urine Nitrate Negative Urine Bilirubin Negative Urine Urobilinogen 0.2 Ur Leukocyte Esterase Negative Urine RBC None seen Urine WBC 0-1/hpf Ur Squamous Epith Cells 5-10 /hpf H Amorphous Sediment 3+ Urine Bacteria Occasional (0-1) D Urine Mucus 3+ H Ur Culture Indicated? Cult not indicated Blood Type Antibody Screen 07/18/19 07/19/19 07/19/19 17:55 00:10 05:50 WBC 10.1 RBC 2.86 L Hgb 7.8 L Hct 24.1 L MCV 84.5 MCH 27.4 MCHC 32.4 RDW 20.2 H Plt Count 219 Sodium 139 Potassium 3.4 Chloride 108 H Carbon Dioxide 24 BUN 10 Creatinine 0.50 L Estimated GFR > 60.0 BUN/Creatinine Ratio 20.0 Glucose 91 Calcium 8.1 L Magnesium 2.1 Total Bilirubin AST ALT Alkaline Phosphatase Total Creatine Kinase CK-MB (CK-2) CK-MB (CK-2) Rel Index Troponin I Total Protein Albumin Globulin Albumin/Globulin Ratio Urine Color Urine Appearance Urine pH Ur Specific [place] Urine Protein Urine Glucose (UA) Urine Ketones Urine Occult Blood Urine Nitrate Urine Bilirubin Urine Urobilinogen Ur Leukocyte Esterase Urine RBC Urine WBC Ur Squamous Epith Cells Amorphous Sediment Urine Bacteria Urine Mucus Ur Culture Indicated? Blood Type O Positive Antibody Screen Negative Assessment & Plan Assessment & Plan narrative: Nola Garcia is an 84-year-old female patient with a history significant for atrial fibrillation anticoagulated on Eliquis, hypertension, dementia and rheumatoid arthritis who presented to the ED following 3 ground level falls and found to have acute blood loss anemia secondary to GI bleed. 1. Acute upper GI bleed, secondary to fungating gastric mass, present on admission. Active -Patient presented after 3 ground level fall secondary to symptomatic acute blood-loss anemia from upper GI bleed -Hemoccult positive. History of melanotic stool. -Continue Protonix 40 mg daily to help with repithelialization of fungating mass. -General surgery was consulted and Dr. Aviels performed EGD in which a gastric fungating mass with stigmata of bleeding and oozing was present and clear source of GI bleed. Recommended monitor blood counts over night, transfusion if needed, and okay to discharge once blood counts are stable possibly tomorrow. The patient is not a surgical candidate due to advanced dementia, comorbidities and her age. Plan for follow-up with general surgery once biopsies resulted and possible oncology referral. 2. Acute blood loss anemia, on anemia of chronic disease, present on admission. Active. -Acute component secondary to blood loss and chronic component secondary to rheumatoid arthritis. -Initial hemoglobin 8.9. Continue to trend down to 7.6 today. Plan to transfuse 2 units PRBC. Transfusion goal < 7.5 due to significant comorbidity of RA and vascular disease. -Continue to monitor CBC daily. 3. Acute hypokalemia, not present on admission. Active. -Potassium dropped to 3.2 today. Ordered potassium chloride 80 mEq IV x1 due to atrial fibrillation with history of RVR in past. -Continue to monitor potassium closely and replete as necessary. 4. Acute on chronic frequent falls, secondary to generalized weakness and deconditioning, present on admission. Stable. -Patient with 3 falls in the last 24 hours with 2 visits to the emergency department. -CT brain without contrast did not demonstrate any acute intracranial abnormalities. -Patient with right hip pain after frequent falls and hip x-ray was performed and read as avascular necrosis with severe degenerative joint disease. Orthopedic surgeon was consulted and does not believe patient has avascular necrosis but rather severe advanced arthritis of right hip. History of left total hip arthroplasty is stable would benefit from orthopedic evaluation for right hip as outpatient. -Ordered physical and occupational valuation treatment, pending. -Discontinued meloxicam indefinitely as patient has fungating mass that is actively bleeding.. 4. Advanced dementia, chronic, present on admission. Stable. -The patient lives with her 90-year-old and has a formwork carpenter. -CLINICAL LABORATORY SCIENCE PROFESSOR consulted to evaluate safety of living situation and possible senior living placement for rehabilitation versus long-term care. 5. Chronic atrial fibrillation on Eliquis, present on admission. Stable. -No complaints of chest pain, shortness of breath. -Continue home diltiazem 180 mg daily and metoprolol succinate 50 mg twice daily. -Discontinued Eliquis indefinitely as patient has fungating mass that is actively bleeding. 6. Hypertension, chronic, present on admission. Stable. -Continue home diltiazem CD 180 mg daily and metoprolol succinate 50 mg twice daily with hold parameters of HR < 75 bpm or SBP < 105 mmHg. 7. Rheumatoid arthritis, chronic, present on admission. Stable. -Continue methotrexate 15 mg on Monday. Disposition: Patient likely to discharge once blood counts have stabilized either home with home health versus senior living facility for rehabilitation. Quality VTE Deep Vein Thrombosis/Pulmonary Embolism Present on Admission: No
[2019-07-19 12:18] LABS: Add Manual Diff / Slide Review NO; Basophils Absolute Auto 0 /uL (0-100); Basophils Percent Auto 0.3 % (0-2); Eosinophils Absolute Auto 100 /uL (0-450); Eosinophils Percent Auto 1.3 % (2-4); Hematocrit 23.5 % (36-46); Hemoglobin 7.6 g/dL (12.0-16.0); Lymphocytes Absolute Auto 900 /uL (1100-4500); Lymphocytes Percent Auto 9.5 % (25-40); Mean Corpuscular HGB Conc 32.5 % (30-36); Mean Corpuscular Hemoglobin 27.3 PG (26-34); Mean Corpuscular Volume 84.1 fL (80-100); Monocytes Absolute Auto 300 /uL (0-900); Monocytes Percent Auto 3.1 % (3-14); Neutrophils Absolute Auto 8400 /uL (1500-7000); Neutrophils Percent Auto 85.8 % (50-75); Platelet Count 199 X10^3/uL (150-400); White Blood Cell Count 9.8 X10^3/uL (4.5-11.0)
--- NOTE | 2019-07-19 12:23 | OT.IP.TRT ---
Surgery Performed Operation Date: 07/19/19 12:45 <No data on this case meets the specified criteria> Occupational Therapy Treatment Note M3 OT- IP Subjective and Pain Start: 07/19/19 12:20 Freq: Status: Active Protocol: Document 07/19/19 12:20 [facility] (Rec: 07/19/19 12:23 [facility] [id number]) OT- Subjective Occupational Therapy Visit Type Type Administrative Note Notes Per nursing prefers pt to stay in bed to rest and awaiting lab results. Therefore check on pt tomorrow for OT eval.
[2019-07-19 12:27] LABS: Blood Urea Nitrogen 8 mg/dL (7-17); Calcium 8.2 mg/dL (8.4-10.2); Carbon Dioxide 24 mmol/L (22-32); Chloride 107 mmol/L (98-107); Estimated Glomerular Filt Rate > 60.0 mL/min (>60); Glucose 90 mg/dL (80-110); HEMOLYSIS < 15 (0-50); Potassium 3.2 mmol/L (3.4-5.1); Sodium 138 mmol/L (137-145)
[2019-07-19] MEDS: POTASSIUM CHLORIDE 80 MEQ in SODIUM CHLORIDE 0.9% 1,000 ML 130 ML IV (13:13)
--- NOTE | 2019-07-19 14:29 | PC.NURSE ---
GI/Cardiac: Heart rate 100 to 110's this am, pt reports hx of A racing heart. Given metoprolol and diltiazem this am. Later in the morning ICU called and reported pt heart rate to the 40's. Bp then 88/46, heart rate jumped up to 103, then came down to 70-80's. Has no c/p. Has no dizziness. Was sitting in the chair. BP standing 93/57 w/hr to 101 and then down again to the 70's, returned to bed. Pt had bp checked in bed and/or laying and it was 87/50 and hr was 73. Conts to be pain free. MD Ureña made aware and pt recieved a 250 bolus of NS over 1 hr. BP after bolus was 119/54 hr 76. Pt has remained pain free the entire time w/no dizziness. However when she falls asleep her rate does drop still to the high 40's and low 50's. K rider is hanging. Pt's friend is at bedside. Cont w/poc.
[2019-07-19] MEDS: LACTATED RINGERS 1,000 ML 42 ML IV (15:32)
--- NOTE | 2019-07-19 15:35 | SUR.HOLD ---
pt taken directly into the OR from acute care floor.
--- NOTE | 2019-07-19 16:17 | PM.OP.1 ---
Operative Date/Time/Diagnoses Date of procedure: 07/19/19 Time of procedure: 16:17 Pre-op diagnosis: GI bleed Post-op diagnosis: other (Large Bleeding gastric tumor -greater curvature) Procedure & Clinicians Procedure: EGD with gastric tumor biopsy Same procedure as scheduled: No (Colonoscopy not performed) Indications: 84-year-old woman with dementia presents with GI bleed in the setting of apixaban use Underwent colonoscopy prep overnight with plans to do upper and lower EGD today Upon EGD -large bleeding gastric tumor identified, due to patient fraility and presence of diagnosis after EGD colonoscopy not performed Surgeon: Kalpesh Aviles Click Yes if Unassisted: Yes Anesthesia Type: General Operative Notes Findings: Large fungating tumor at the greater curvature of the stomach just opposite the insura -not involving pyloris, not obstructed, not involving the cardia or GE junction 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 She was sedated by a anesthesiology. A bite block was placed. A gastroscope was introduced through the oral cavity intubated the esophagus without difficulty. There were no esophageal lesions. The scope was easily advanced through the GE junction into the stomach. Immediately upon entering the stomach there was an obvious large fungating tumor along the greater curvature. There was evidence of recent bleeding but no active bleeding -there was adherent clot portions of the tumor. The scope was passed beyond the tumor into the pylorus which appeared healthy and was without ulceration, the 1st portion of duodenum was inspected and found to be without lesions containing healthy villous mucosa The scope was then withdrawn. numerous biopsies were taken several aspects of the tumor to be sent for pathology. The scope was retroflexed -the tumor did not involve the GE junction or the cardia, or the fundus of the stomach. Scope was then withdrawn inspecting the esophagus again -again no lesions were seen Complications: none Condition: stable Disposition: PACU Plan for aftercare: Two floor, await biopsy
--- NOTE | 2019-07-19 16:43 | SUR.PHASEI ---
Report to Ray
[2019-07-19 19:21] LABS: Hematocrit 28.2 % (36-46)
[2019-07-19 19:55] LABS: Hemoglobin 8.7 g/dL (12.0-16.0)
[2019-07-19 19:56] LABS: Hematocrit 27.6 % (36-46)
--- NOTE | 2019-07-19 22:23 | PC.NURSE ---
Pt calm and cooperative p procedure today, but became restless and itchy and far more confused late in the evening. She has 12.5 mg Seroquel po x 1 prn, if needed. H and H have improved today so blood transfusion on hold until am labs. Pt stated that the doctor told me I have lung CA. Advised her that stomach sample was sent off to lab and we will know for sure next week. She was able to eat general diet at evening meal. BM today was brown, not dark.
[2019-07-19] MEDS: QUETIAPINE 25 MG TABLET 12.5 MG PO (22:41)
[2019-07-20] VITALS (14 sets, daily range): BP systolic 91–117; BP diastolic 53–87; PULSE 62–100; RESP 16–20; TEMP 36.4–36.8; O2SAT 95–100
--- NOTE | 2019-07-20 05:40 | PC.NURSE ---
Addendum entered by Huyen Brown R.N. 07/20/19 06:54: Lab was unable to draw labs d/t pt's refusal, let CAR OILER know that lab will reattempt at 0800, he acknowledge and okayed the delay. Pt refused to get up to use BSC and refused to let staff check her brief, will make day shift nurse aware that attempts were made and CAR OILER is aware that pt has been refusing care attempts this shift. Original Note: Shift note: During assessments, vital signs, and attempts to reposition pt became combative and would grab or strike out at RN or VALIDATION ENGINEER and state leave me alone! and don't touch me!. Pt was not able to cause harm to staff but no further attempts were made that could result in injury to pt or staff members and acknowledge pt's wishes to not be touched or woken. These incidents happened throughout the night. Pt was monitored for safety throughout the night with bed alarm and constant visualization.
[2019-07-20] MEDS: METOPROLOL ER 50 MG TABLET PO (08:11)
[2019-07-20] MEDS: MULTIVITAMIN 1 TABLET 1 TAB PO (08:11)
[2019-07-20] MEDS: PANTOPRAZOLE 40 MG TABLET PO (08:11)
[2019-07-20] MEDS: FOLIC ACID 1 MG TABLET PO (08:11)
[2019-07-20] MEDS: dilTIAZem CD 180 MG CAP PO (08:11)
[2019-07-20 08:31] LABS: Add Manual Diff / Slide Review NO; Basophils Absolute Auto 0 /uL (0-100); Basophils Percent Auto 0.3 % (0-2); Eosinophils Absolute Auto 200 /uL (0-450); Eosinophils Percent Auto 1.8 % (2-4); Hematocrit 25.3 % (36-46); Hemoglobin 8.2 g/dL (12.0-16.0); Lymphocytes Absolute Auto 1300 /uL (1100-4500); Lymphocytes Percent Auto 11.2 % (25-40); Mean Corpuscular HGB Conc 32.2 % (30-36); Mean Corpuscular Hemoglobin 27.3 PG (26-34); Mean Corpuscular Volume 84.8 fL (80-100); Monocytes Absolute Auto 200 /uL (0-900); Monocytes Percent Auto 1.9 % (3-14); Neutrophils Absolute Auto 9700 /uL (1500-7000); Neutrophils Percent Auto 84.8 % (50-75); Platelet Count 205 X10^3/uL (150-400); Red Blood Cell Count 2.99 X10^6/uL (4.0-5.2); Red Cell Distribution Width 20.1 % (11.6-14.8); White Blood Cell Count 11.4 X10^3/uL (4.5-11.0)
[2019-07-20 08:41] LABS: BUN Creatinine Ratio 16.7 (6-22); Blood Urea Nitrogen 10 mg/dL (7-17); Calcium 8.6 mg/dL (8.4-10.2); Carbon Dioxide 21 mmol/L (22-32); Chloride 111 mmol/L (98-107); Estimated Glomerular Filt Rate > 60.0 mL/min (>60); Glucose 114 mg/dL (80-110); HEMOLYSIS < 15 (0-50); Magnesium 2.1 mg/dL (1.6-2.3); Sodium 138 mmol/L (137-145)
--- NOTE | 2019-07-20 11:35 | PT.IPTN ---
Current Diagnoses Melena (07/18/19) Surgery Performed Operation Date: 07/19/19 12:45 Actual Procedures p Esophagogastroduodenoscopy with biopsies - Kalpesh Aviles MD Physical Therapy Treatment Note M2 PT-IP Current Condition Start: 07/19/19 08:08 Freq: NEEDED Status: Active Protocol: Document 07/19/19 10:13 HH (Rec: 07/19/19 10:44 [email or web address]) Physical Therapy Current Condition Current Condition Evaluation Date 07/19/19 Treatment Diagnosis anemia and acute blood loss and intestinal bleeding, AMS, weakness, falls Onset Date 07/18/19 Weight Bearing Status Weight Bearing Status Weight Bear as Tolerated M3 PT-IP Subjective Start: 07/19/19 08:08 Freq: NEEDED Status: Active Protocol: Document 07/20/19 11:30 GGD (Rec: 07/20/19 12:05 GGD [id number]) Subjective Physical Therapy Visit Type Type Treatment Note Visit Start Time 11:10 Visit Stop Time 11:37 Total Visit Minutes 27 Number of FURNITURE SERVICER Visits 1 Physical Therapy Visit Comments Patient Comments Pt states she needs to move. Therapy Pain Assessment Pain When Pain Assessed During Mobility Pain Present Pain Present Pain Reported M4 PT-IP Mobility and Gait Start: 07/19/19 08:08 Freq: NEEDED Status: Active Protocol: Document 07/20/19 11:30 GGD (Rec: 07/20/19 12:05 GGD [id number]) PT-Bed Mobility Assessment Rolling Type of Rolling Roll to Right Level of Assist Minimal Assistance Supine to Sit Supine to Sit Moderate Assistance 1 Person Assistance Bedrails PT-Transfer Assessment Sit to and From Stand Sit to and from Stand Minimal Assistance 1 Person Assistance Use of Upper Extremities Equipment Transfer Assistive Device Gait Belt Front Wheeled Walker Orthotic/Prosthetic Devices or Brace: No Transfers Transfer Destination Chair Transfer Ability Level of Assist Contact Guard Assistance Minimal Assistance Gait Assessment Gait Gait Assistance Required: Contact Guard Assist Distance (Feet) 60 Able to Maintain Weight Bearing Status Yes During Gait Assistive Devices Assistive Device Gait Belt Front Wheeled Walker Orthotic/Prosthetic Devices or Brace: No Gait Deviations General Gait Pattern Antalgic Decreased Stride Length Decreased Feet Clearance Lateral Trunk Lean Factors Limiting Gait Function Factors Limiting Gait Function Decreased Activity Tolerance Decreased Strength Limited Range of Motion Pain Poor Balance Poor Safety Awareness M5 PT-IP Objective Assessments Start: 07/19/19 08:08 Freq: NEEDED Status: Active Protocol: Document 07/19/19 10:13 (Rec: 07/19/19 10:44 [email or web address]) Orientation Orientation/Cognition Level of Alertness Alert Orientation Name Birthday Situation Language Function Ability No Deficits Noted Safety Awareness Understands Safety Issues Memory Description Short Term Impaired Gross Range of Motion Upper Extremity ROM Assessment Within Functional Limits Lower Extremity ROM Assessment Right Impaired Strength Upper Extremity Strength Assessment Within Functional Limits Lower Extremity Strength Assessment Right Impaired Hip 3+/5 Knee 4/5 Coordination Assessment Gross Coordination Gross Coordination WNL Sensation Assessment Sensation Gross Sensation WNL Muscle Tone Muscle Tone WNL Yes M6 PT-IP Treatment Start: 07/19/19 08:08 Freq: NEEDED Status: Active Protocol: Document 07/19/19 10:13 (Rec: 07/19/19 10:44 [email or web address]) Physical Therapy Treatment Education Education Provided Safety M7 PT-IP Assessment and Plan Start: 07/19/19 08:08 Freq: NEEDED Status: Active Protocol: Document 07/20/19 11:30 GGD (Rec: 07/20/19 12:05 GGD [id number]) PT Summary Assessment and Plan Summary Assessment Summary Pt need increase in assist with bed mobility. She had decrease tolerance to gait. She need mod cues for safety. Pt would benefit from SNF to improve functional mobility and decrease fall risk. Frequency of Treatment Frequency Of Treatment Once a Day Treatment Plan Physical Therapy Treatment Plan Bed Mobility Training Transfer Training Gait Training Therapeutic Exercise Balance Retraining Discharge Planning Hot or Cold Pack Neuromuscular Re-ed Other Recommendations and Next Treatment balance training as owen Focus safety awareness. Recommendations To Nursing Amount of Assist Needed 1 Person Assist Discharge Recommendations PT Discharge Recommendations SNF Rehab
--- NOTE | 2019-07-20 13:36 | PM.PN.1 ---
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 She currently denies headache, shortness of breath, chest pain, abdominal pain, nausea, vomiting, fever, chills, dysuria, diarrhea or constipation. She is voiding and eliminating without difficulty. She has generalized weakness with recurrent falls. She currently endorses R hip pain only. Overnight she was slightly combative thought to be due to owning, she received 12.5 mg of Seroquel and this morning she was very pleasant. Her hemoglobin dropped slightly again today, to 8.2. I talked extensively with at bedside regarding different treatment options for her fungating mass, and he is aware that all of these will likely be non curable but this will depend on the final pathology. I further clarified goals of care for her, and given her wishes she is still full code. Exam Vital Signs (past 8 hours): - 07/20/19 06:55 07/20/19 08:07 07/20/19 08:12 Temperature 97.8 F 97.5 F L Pulse Rate 93 H 100 H Respiratory Rate 16 20 Blood Pressure 116/87 117/86 Pulse Oximetry 96 98 98 07/20/19 11:05 07/20/19 11:30 Temperature 97.7 F Pulse Rate 85 Respiratory Rate 20 Blood Pressure 91/60 91/60 Pulse Oximetry 100 Oxygen Delivery Method Room Air Oxygen Flow Rate 0 Narrative Exam Narrative: General: Elderly female lying in bed and in no acute distress, well-developed, well-nourished, advanced dementia at baseline, alert oriented to person only, poor historian but appropriately interactive otherwise. HEENT: Normocephalic, traumatic. Small abrasion over left eyebrow. Patient thought to have contusion/ecchymoses of eyes however, a removable and was likely makeup. External ears without defect. Pupils equal, round, and reactive to light. Anicteric sclerae, moist conjunctivae, and no lid lag. Oropharynx free of erythema and cobble stoning with moist mucosa. Neck: Supple with full range of motion. No jugular venous distension. No lymphadenopathy or thyromegaly. Cardiovascular: Irregularly irregular without murmurs, rubs, or gallops appreciated. Pulmonary: Clear to auscultation bilaterally without crackles, wheezes, or rhonchi. Normal respiratory effort with no use of accessory muscles. Abdomen: Soft, bowel sounds present, nontender, nondistended. No hepatosplenomegaly or masses appreciated. Extremities: No clubbing or cyanosis. Mild bipedal edema. Skin: Normal temperature, turgor, and texture; no ulcers, or subcutaneous nodules appreciated. Seborrhea keratoses scattered throughout entire body/skin. Neurological: Cranial nerves grossly intact. Psychiatric: Normal mood and affect. Alert and oriented to person only. Objective Labs Result Diagrams: 07/20/19 08:20 07/20/19 08:20 Labs: Laboratory Results - last 24 hr 07/18/19 07/19/19 07/19/19 17:55 19:08 19:47 WBC RBC Hgb 9.0 L 8.7 L Hct 28.2 L 27.6 L MCV MCH MCHC RDW Plt Count Neut % (Auto) Lymph % (Auto) [place] % (Auto) Eos % (Auto) Baso % (Auto) Neut # (Auto) Lymph # (Auto) [place] # (Auto) Eos # (Auto) Baso # (Auto) Nucleated RBCs Hypersegmented Neuts Hypogranular Neuts Reactive Lymphocytes Smudge Cells Other Cell Type Toxic Granulation Toxic Vacuolation Dohle Bodies Kylie Rods WBC Morphology Comment Platelet Estimate Clumped Platelets Plt Morphology Comment RBC Morphology Dimorphic RBCs Polychromasia Hypochromasia Poikilocytosis Basophilic Stippling Anisocytosis Microcytosis Macrocytosis Spherocytes Pappenheimer Bodies Sickle Cells Target Cells Tear Drop Cells Ovalocytes Stomatocytes Helmet Cells [place] Bodies [place] Rings David Cells Acanthocytes (Spur) Rouleaux Schistocytes Sodium Potassium Chloride Carbon Dioxide BUN Creatinine Estimated GFR BUN/Creatinine Ratio Glucose Calcium Magnesium Blood Type O Positive Antibody Screen Negative Crossmatch See Detail 07/20/19 07/20/19 08:20 08:20 WBC 11.4 H RBC 2.99 L Hgb 8.2 L Hct 25.3 L MCV 84.8 MCH 27.3 MCHC 32.2 RDW 20.1 H Plt Count 205 Neut % (Auto) 84.8 H Lymph % (Auto) 11.2 L [place] % (Auto) 1.9 L Eos % (Auto) 1.8 L Baso % (Auto) 0.3 Neut # (Auto) 9700 H Lymph # (Auto) 1300 [place] # (Auto) 200 Eos # (Auto) 200 Baso # (Auto) 0 Nucleated RBCs Cancelled Hypersegmented Neuts Cancelled Hypogranular Neuts Cancelled Reactive Lymphocytes Cancelled Smudge Cells Cancelled Other Cell Type Cancelled Toxic Granulation Cancelled Toxic Vacuolation Cancelled Dohle Bodies Cancelled Kylie Rods Cancelled WBC Morphology Comment Cancelled Platelet Estimate Cancelled Clumped Platelets Cancelled Plt Morphology Comment Cancelled RBC Morphology Cancelled Dimorphic RBCs Cancelled Polychromasia Cancelled Hypochromasia Cancelled Poikilocytosis Cancelled Basophilic Stippling Cancelled Anisocytosis Cancelled Microcytosis Cancelled Macrocytosis Cancelled Spherocytes Cancelled Pappenheimer Bodies Cancelled Sickle Cells Cancelled Target Cells Cancelled Tear Drop Cells Cancelled Ovalocytes Cancelled Stomatocytes Cancelled Helmet Cells Cancelled [place] Bodies Cancelled [place] Rings Cancelled [place] Cells Cancelled Acanthocytes (Spur) Cancelled Rouleaux Cancelled Schistocytes Cancelled Sodium 138 Potassium 4.0 Chloride 111 H Carbon Dioxide 21 L BUN 10 Creatinine 0.60 Estimated GFR > 60.0 BUN/Creatinine Ratio 16.7 Glucose 114 H Calcium 8.6 Magnesium 2.1 Blood Type Antibody Screen Crossmatch Assessment & Plan Assessment & Plan narrative: Nola Garcia is an 84-year-old female patient with a history significant for atrial fibrillation anticoagulated on Eliquis, hypertension, dementia and rheumatoid arthritis who presented to the ED following 3 ground level falls and found to have acute blood loss anemia secondary to GI bleed. 1. Acute upper GI bleed, secondary to fungating gastric mass, present on admission. Active -Patient presented after 3 ground level fall secondary to symptomatic acute blood-loss anemia from upper GI bleed -Hemoccult positive. History of melanotic stool. -Continue Protonix 40 mg daily to help with repithelialization of fungating mass. -General surgery was consulted and Dr. Aviles performed EGD in which a gastric fungating mass with stigmata of bleeding and oozing was present and clear source of GI bleed. Recommended monitor blood counts over night, transfusion if needed, and okay to discharge once blood counts are stable possibly tomorrow. The patient is not a surgical candidate due to advanced dementia, comorbidities and her age. Plan for follow-up with general surgery once biopsies resulted and possible oncology referral. 2. Acute blood loss anemia, on anemia of chronic disease, present on admission. Active. -Acute component secondary to blood loss and chronic component secondary to rheumatoid arthritis. -Initial hemoglobin 8.9. Trended down and then back up, now at 8.2 which is downtrending again. Will continue to trend her CBC. - continue to treat with PPI as noted above. 3. Acute hypokalemia, not present on admission. Resolved after repletion 07/19. 4. Acute on chronic frequent falls, secondary to generalized weakness and deconditioning, present on admission. Stable. -Patient with 3 falls in the last 24 hours with 2 visits to the emergency department. -CT brain without contrast did not demonstrate any acute intracranial abnormalities. -Patient with right hip pain after frequent falls and hip x-ray was performed and read as avascular necrosis with severe degenerative joint disease. Orthopedic surgeon was consulted and does not believe patient has avascular necrosis but rather severe advanced arthritis of right hip. History of left total hip arthroplasty is stable would benefit from orthopedic evaluation for right hip as outpatient. -Ordered physical and occupational valuation treatment, pending. -Discontinued meloxicam indefinitely as patient has fungating mass that is actively bleeding.. 4. Advanced dementia, chronic, present on admission. Stable. -The patient lives with her 90-year-old and has a general accounting clerk. -COLLEGE ASSOCIATE will continue to follow for assistance with safe discharge. 5. Chronic atrial fibrillation on Eliquis, present on admission. Stable. -No complaints of chest pain, shortness of breath. -Continue home diltiazem 180 mg daily and metoprolol succinate 50 mg twice daily. -Discontinued Eliquis indefinitely as patient has fungating mass that is actively bleeding. 6. Hypertension, chronic, present on admission. Stable. -Continue home diltiazem CD 180 mg daily and metoprolol succinate 50 mg twice daily with hold parameters of HR < 75 bpm or SBP < 105 mmHg. 7. Rheumatoid arthritis, chronic, present on admission. Stable. -Continue methotrexate 15 mg on Monday. Disposition: Patient likely to discharge once blood counts have stabilized either home with home health versus senior living facility for rehabilitation, pending discussions with COLLEGE ASSOCIATE and family. Quality VTE Deep Vein Thrombosis/Pulmonary Embolism Present on Admission: No
--- NOTE | 2019-07-20 13:40 | P.PN_ITS ---
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 She currently denies headache, shortness of breath, chest pain, abdominal pain, nausea, vomiting, fever, chills, dysuria, diarrhea or constipation. She is voiding and eliminating without difficulty. She has generalized weakness with recurrent falls. She currently endorses R hip pain only. Overnight she was slightly combative thought to be due to owning, she received 12.5 mg of Seroquel and this morning she was very pleasant. Her hemoglobin dropped slightly again today, to 8.2. I talked extensively with at bedside regarding different treatment options for her fungating mass, and he is aware that all of these will likely be non curable but this will depend on the final pathology. I further clarified goals of care for her, and given her wishes she is still full code. Exam Vital Signs (past 8 hours): - 07/20/19 06:55 07/20/19 08:07 07/20/19 08:12 Temperature 97.8 F 97.5 F L Pulse Rate 93 H 100 H Respiratory Rate 16 20 Blood Pressure 116/87 117/86 Pulse Oximetry 96 98 98 07/20/19 11:05 07/20/19 11:30 Temperature 97.7 F Pulse Rate 85 Respiratory Rate 20 Blood Pressure 91/60 91/60 Pulse Oximetry 100 Oxygen Delivery Method Room Air Oxygen Flow Rate 0 Narrative Exam Narrative: General: Elderly female lying in bed and in no acute distress, well-developed, well-nourished, advanced dementia at baseline, alert oriented to person only, poor historian but appropriately interactive otherwise. HEENT: Normocephalic, traumatic. Small abrasion over left eyebrow. Patient tho ught to have contusion/ecchymoses of eyes however, a removable and was likely makeup. External ears without defect. Pupils equal, round, and reactive to light. Anicteric sclerae, moist conjunctivae, and no lid lag. Oropharynx free of erythema and cobble stoning with moist mucosa. Neck: Supple with full range of motion. No jugular venous distension. No lymphadenopathy or thyromegaly. Cardiovascular: Irregularly irregular without murmurs, rubs, or gallops appreciated. Pulmonary: Clear to auscultation bilaterally without crackles, wheezes, or rhonchi. Normal respiratory effort with no use of accessory muscles. Abdomen: Soft, bowel sounds present, nontender, nondistended. No hepatospleno megaly or masses appreciated. Extremities: No clubbing or cyanosis. Mild bipedal edema. Skin: Normal temperature, turgor, and texture; no ulcers, or subcutaneous nodules appreciated. Seborrhea keratoses scattered throughout entire body/skin. Neurological: Cranial nerves grossly intact. Psychiatric: Normal mood and affect. Alert and oriented to person only. Objective Labs Result Diagrams: 07/20/19 08:20 07/20/19 08:20 Labs: Laboratory Results - last 24 hr 07/18/19 07/19/19 07/19/19 17:55 19:08 19:47 WBC RBC Hgb 9.0 L 8.7 L Hct 28.2 L 27.6 L MCV MCH MCHC RDW Plt Count Neut % (Auto) Lymph % (Auto) [place] % (Auto) Eos % (Auto) Baso % (Auto) Neut # (Auto) Lymph # (Auto) [place] # (Auto) Eos # (Auto) Baso # (Auto) Nucleated RBCs Hypersegmented Neuts Hypogranular Neuts Reactive Lymphocytes Smudge Cells Other Cell Type Toxic Granulation Toxic Vacuolation Dohle Bodies Kylie Rods WBC Morphology Comment Platelet Estimate Clumped Platelets Plt Morphology Comment RBC Morphology Dimorphic RBCs Polychromasia Hypochromasia Poikilocytosis Basophilic Stippling Anisocytosis Microcytosis Macrocytosis Spherocytes Pappenheimer Bodies Sickle Cells Target Cells Tear Drop Cells Ovalocytes Stomatocytes Helmet Cells [place] Bodies [place] Rings [place] Cells Acanthocytes (Spur) Rouleaux Schistocytes Sodium Potassium Chloride Carbon Dioxide BUN Creatinine Estimated GFR BUN/Creatinine Ratio Glucose Calcium Magnesium Blood Type O Positive Antibody Screen Negative Crossmatch See Detail 07/20/19 07/20/19 08:20 08:20 WBC 11.4 H RBC 2.99 L Hgb 8.2 L Hct 25.3 L MCV 84.8 MCH 27.3 MCHC 32.2 RDW 20.1 H Plt Count 205 Neut % (Auto) 84.8 H Lymph % (Auto) 11.2 L [place] % (Auto) 1.9 L Eos % (Auto) 1.8 L Baso % (Auto) 0.3 Neut # (Auto) 9700 H Lymph # (Auto) 1300 [place] # (Auto) 200 Eos # (Auto) 200 Baso # (Auto) 0 Nucleated RBCs Cancelled Hypersegmented Neuts Cancelled Hypogranular Neuts Cancelled Reactive Lymphocytes Cancelled Smudge Cells Cancelled Other Cell Type Cancelled Toxic Granulation Cancelled Toxic Vacuolation Cancelled Dohle Bodies Cancelled Kylie Rods Cancelled WBC Morphology Comment Cancelled Platelet Estimate Cancelled Clumped Platelets Cancelled Plt Morphology Comment Cancelled RBC Morphology Cancelled Dimorphic RBCs Cancelled Polychromasia Cancelled Hypochromasia Cancelled Poikilocytosis Cancelled Basophilic Stippling Cancelled Anisocytosis Cancelled Microcytosis Cancelled Macrocytosis Cancelled Spherocytes Cancelled Pappenheimer Bodies Cancelled Sickle Cells Cancelled Target Cells Cancelled Tear Drop Cells Cancelled Ovalocytes Cancelled Stomatocytes Cancelled Helmet Cells Cancelled [place] Bodies Cancelled [place] Rings Cancelled [place] Cells Cancelled Acanthocytes (Spur) Cancelled Rouleaux Cancelled Schistocytes Cancelled Sodium 138 Potassium 4.0 Chloride 111 H Carbon Dioxide 21 L BUN 10 Creatinine 0.60 Estimated GFR > 60.0 BUN/Creatinine Ratio 16.7 Glucose 114 H Calcium 8.6 Magnesium 2.1 Blood Type Antibody Screen Crossmatch Assessment & Plan Assessment & Plan narrative: Nola Garcia is an 84-year-old female patient with a history significant for atrial fibrillation anticoagulated on Eliquis, hypertension, dementia and rheumatoid arthritis who presented to the ED following 3 ground level falls and found to have acute blood loss anemia secondary to GI bleed. 1. Acute upper GI bleed, secondary to fungating gastric mass, present on admission. Active -Patient presented after 3 ground level fall secondary to symptomatic acute blood-loss anemia from upper GI bleed -Hemoccult positive. History of melanotic stool. -Continue Protonix 40 mg daily to help with repithelialization of fungating mass. -General surgery was consulted and Dr. Aviles performed EGD in which a gastric fungating mass with stigmata of bleeding and oozing was present and clear source of GI bleed. Recommended monitor blood counts over night, transfusion if needed, and okay to discharge once blood counts are stable possibly tomorrow. The patient is not a surgical candidate due to advanced dementia, comorbidities and her age. Plan for follow-up with general surgery once biopsies resulted and possible oncology referral. 2. Acute blood loss anemia, on anemia of chronic disease, present on admission. Active. -Acute component secondary to blood loss and chronic component secondary to rheumatoid arthritis. -Initial hemoglobin 8.9. Trended down and then back up, now at 8.2 which is downtrending again. Will continue to trend her CBC. - continue to treat with PPI as noted above. 3. Acute hypokalemia, not present on admission. Resolved after repletion 07/19. 4. Acute on chronic frequent falls, secondary to generalized weakness and deconditioning, present on admission. Stable. -Patient with 3 falls in the last 24 hours with 2 visits to the emergency dep artment. -CT brain without contrast did not demonstrate any acute intracranial abnormalities. -Patient with right hip pain after frequent falls and hip x-ray was performed and read as avascular necrosis with severe degenerative joint disease. Orthopedic surgeon was consulted and does not believe patient has avascular necrosis but rather severe advanced arthritis of right hip. History of left tota l hip arthroplasty is stable would benefit from orthopedic evaluation for right hip as outpatient. -Ordered physical and occupational valuation treatment, pending. -Discontinued meloxicam indefinitely as patient has fungating mass that is actively bleeding.. 4. Advanced dementia, chronic, present on admission. Stable. -The patient lives with her 90-year-old and has a trust evaluation supervisor. -STOCK RANCH SUPERVISOR will continue to follow for assistance with safe discharge. 5. Chronic atrial fibrillation on Eliquis, present on admission. Stable. -No complaints of chest pain, shortness of breath. -Continue home diltiazem 180 mg daily and metoprolol succinate 50 mg twice daily. -Discontinued Eliquis indefinitely as patient has fungating mass that is actively bleeding. 6. Hypertension, chronic, present on admission. Stable. -Continue home diltiazem CD 180 mg daily and metoprolol succinate 50 mg twice daily with hold parameters of HR < 75 bpm or SBP < 105 mmHg. 7. Rheumatoid arthritis, chronic, present on admission. Stable. -Continue methotrexate 15 mg on Monday. Disposition: Patient likely to discharge once blood counts have stabilized either home with home health versus [facility] facility for rehabilitation, pending discussions with STOCK RANCH SUPERVISOR and family. Quality VTE Deep Vein Thrombosis/Pulmonary Embolism Present on Admission: No
--- NOTE | 2019-07-20 15:26 | PC.NURSE ---
1530 No PRBCs to be given, orders cancelled, per verbal order Dr Johnston.
--- NOTE | 2019-07-20 15:40 | CM.DPC ---
DCP/continued: Reviewed chart. Patient is a 68yr old female admitted after GLF. PCP is Dr. Obregon. Primary payor is 1)Medicare 2)Commercial. Met with patient explained CM/SW role. Patient with h/o dementia and information received needs to be confirmed with spouse or outpatient d/c facility planner. Patient reports that she resides with spouse/Yobany in [place]. Patient seen by therapy and current recommendation is SNF for short stay. Patient recently has had many falls. Per notes, patient does have outside agency/[facility] contact: Shikha Knapp, whom have been assisting patient and spouse with long term care social worker planning. LABORATORY MANAGER did not see spouse today but did see Shikha Knapp. She reports that spouse would like patient to go to SNF for short amount of time prior to returning home. First choice is [facility] and second is [facility]. LABORATORY MANAGER to fax packet to [facility]. Shikha Jack reports that she will be assisting patient and spouse with long-term placement in assisted living. This is expected in the near future. P: Chanda Fletcher evaluating. Did not speak with admit today, faxed clinical for review. Per MD d/c anticipated for within the next 24-48hrs. Above information will need to be confirmed with spouse prior to d/c. He is the DPOA for this patient. DALTON Mcnally
[2019-07-20] MEDS: ACETAMINOPHEN 325 MG TABLET 650 MG PO ×2 (16:01→22:09)
--- NOTE | 2019-07-20 16:30 | OT.IP.EVAL ---
Current Diagnoses Melena (07/18/19) Surgery Performed Operation Date: 07/19/19 12:45 Actual Procedures p Esophagogastroduodenoscopy with biopsies - Kalpesh Aviles MD Past Medical History (Last Reviewed 07/19/19 @ 02:20 by MANJEET Goins) Atrial fibrillation (Acute) H/O: hysterectomy (Acute) 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) Hypertension (Acute) Rheumatoid arthritis (Acute) Surgical History (Last Reviewed 07/19/19 @ 02:20 by MANJEET Goins) History of total right knee replacement (Acute) Occupational Therapy Inpatient Evaluation/Re-Eval M1 PT/OT-IP Prior Functional Status Start: 07/19/19 08:08 Freq: NEEDED Status: Active Protocol: Document 07/20/19 16:18 CGR (Rec: 07/20/19 16:29 CGR [email or web address]) Medical Review Prior Functional Status Diet/Fluid Consistency NPO Communication Advanced Dementia at baseline with poor short term memory. Able to follow commands and make needs known. Mobility and Gait Pt was able to recall her 3 falls within the past few days . She stated had been using FWW recently due to weakness and poor balance. Activities of Daily Living and IADL's SW is still acquiring pt's social hx and PLOF. Pt stated she was independent for ADLs and IADLs Social History Household Members spouse Living Arrangements House Number of Floors (Floors) One Floor Number of Stairs To Enter/Railing? 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 M2 OT-IP Current Condition Start: 07/19/19 12:20 Freq: Status: Active Protocol: Document 07/20/19 16:18 CGR (Rec: 07/20/19 16:29 CGR [email or web address]) Occupational Therapy Current Condition Current Condition Evaluation Date 07/20/19 Treatment Diagnosis GI bleed, AMS, weakness, falls , avascular necrosis of R hip M3 OT- IP Subjective and Pain Start: 07/19/19 12:20 Freq: Status: Active Protocol: Document 07/20/19 16:18 CGR (Rec: 07/20/19 16:29 CGR [email or web address]) OT- Subjective Occupational Therapy Visit Type Type Initial Evaluation Visit Start Time 13:35 Visit Stop Time 14:00 Total Visit Minutes 25 Notes Per staff, pt just returned to chair from [facility] [place]. Pt with poor endurance for transfers but is a 1 person assist. Pt refused out of chair activities but requesting to get washed up. Occupational Therapy Visit Comments Patient Comments I would like to brush my teeth . OT Pain Assessment Pain When Pain Assessed At Rest Pain Present Pain Present Pain Reported Location Right Leg Intensity 6 Scale Used Numeric (1 - 10) M4 OT- IP ADL's Start: 07/19/19 12:20 Freq: Status: Active Protocol: Document 07/20/19 16:18 CGR (Rec: 07/20/19 16:29 CGR [email or web address]) OT [id number] Comments OT Self-Feeding Comments Not meal time. OT ADL-Grooming General Evaluation Grooming Ability Standby Assistance Areas Needing Assistance Retrieving/Set-up of Grooming Items Combing/Brushing Hair Face Washing Comments OT Grooming Comments seated in chair at sink OT ADL-Oral Care General Eval Oral Care Ability Standby Assistance Areas of Assistance Brushing Teeth Retrieving/Set-Up of Items Comments Oral Care Comments seated in chair at sink OT ADL-Dressing Comments OT Dressing Comments not performed OT ADL-Toileting Comments OT Toileting Comments per staff, pt just performed. OT ADL-Bathing Comments OT Bathing Comments Not performed on this date. M5 OT- IP IADL's Start: 07/19/19 12:20 Freq: Status: Active Protocol: Document 07/20/19 16:18 CGR (Rec: 07/20/19 16:29 CGR [email or web address]) OT-Instrumental Activities of Daily Living Deficits IADL Deficits Identified Deficits Home Safety Awareness Awareness of Need for Assistance at Home Decreased Awareness Ability to Problem Solve Emergency Unable to Problem Solve Situations M6 OT- IP Functional Cognition Start: 07/19/19 12:20 Freq: Status: Active Protocol: Document 07/20/19 16:18 CGR (Rec: 07/20/19 16:29 CGR [email or web address]) Cognitive Factors Limiting Selfcare Function Cognitive Ability Level of Alertness Alert Confusional State Patient Orientation Name Age Situation Attention Span Ability Capable of Focused Attention Ability to Follow Commands Able to Follow One Step Commands with Increased Time Able to Follow One Step Commands with Repetition Memory Description Immediate Impaired Short Term Impaired Sweat Box Attendant Impaired Working Impaired Safety Awareness Underestimates Need for Assistance Problem Solving Ability Unable to Identify Errors Needs Assist to Identify Solutions Cognitive Comments Cognitive Assessment Comments Pt likley to benefit from formal cog assessment. OT- Vision and Hearing OT- Hearing Assessment OT- Hearing Assessment WFL OT- Vision Assessment Visual Acuity WFL Visual Attentiveness WFL Occular Pursuits WFL Visual Convergence WFL Visual [place] WFL Diplopia Absent Visual Spacial Neglect Not Applicable M7 OT- IP Mobility and Balance Start: 07/19/19 12:20 Freq: Status: Active Protocol: Document 07/20/19 16:18 CGR (Rec: 07/20/19 16:29 CGR [email or web address]) OT-Transfer Assessment Comments Mobility Comments Pt refused all transfers in this session. OT- Balance Assessment Sitting Balance and Reactions Static Sitting Balance Ability Fair Dynamic Sitting Balance Ability Poor M8 OT- IP Objective Assessments Start: 07/19/19 12:20 Freq: Status: Active Protocol: Document 07/20/19 16:18 CGR (Rec: 07/20/19 16:29 CGR [email or web address]) OT Strength Upper Extremity Strength Assessment Within Functional Limits Comments Strength Comments Grossly 3+/5 OT- Coordination Assessment Upper Extremity Finger to Nose Test Within Functional Limits Finger Tapping Test Within Functional Limits OT-Muscle Tone Assessment Muscle Tone WNL Yes OT Sensation Assessment Edema Edema Absent M9 OT- IP Assessment and Plan Start: 07/19/19 12:20 Freq: Status: Active Protocol: Document 07/20/19 16:18 CGR (Rec: 07/20/19 16:29 CGR [email or web address]) OT Summary Assessment and Plan Potential Rehabilitation Potential Fair Summary OT Impairments Pain Strength Balance Functional Cognition Functional Mobility Grooming Dressing Toileting Bathing Toilet Transfers Shower Transfers Progress Towards Goals Slow Progress due to Medical Issues Slow Progress due to Cognition Assessment Summary Pt presents with declines to her mobility, cognition, and ADLs. Pt will benefit from OT services to address declines. Pt will likely need SNF at discharge and may be more appropriate for long term care administrator gare given her recent decline in abilities. Goals Self-Feeding Goal Independent Grooming Goal Independent Dressing Goal Independent Toileting Goal Independent Bathing Goal Standby Assistance Toilet Transfer Goal Independent Shower Transfer Goal Standby Assistance Days to Meet Goals 10 Frequency of Treatment Frequency Of Treatment Once a Day Treatment Plan OT Treatment Plan ADL Training Functional Cognition Training Functional Mobility Patient/Family Education Discharge Planning Other Treatment Recommendations and Next transfer assessment and formal Treatment Focus cog assessment. Discharge Recommendations OT Discharge Recommendations SNF Rehab Home Equipment Needs TBD
--- NOTE | 2019-07-20 18:41 | PC.NURSE ---
Pt pulled out PIV at approx 1430. Multiple attempts made to restart but patients veins very small and blow if blood return was obtained. MD aware. Nursing communication made by Rick RN, OK to leave out until tomorrow. Encourage fluids.
--- NOTE | 2019-07-20 22:04 | PC.NURSE ---
New PIV placement in L hand, 22g.
[2019-07-21] VITALS (9 sets, daily range): BP systolic 102–122; BP diastolic 42–69; PULSE 64–91; RESP 16–20; TEMP 36.3–36.9; O2SAT 92–100
--- NOTE | 2019-07-21 00:40 | PC.NURSE ---
Shift note: Received pt from evening shift. Pt is oriented to self and is pleasantly confused and cooperative, VSS and pt is on RA. Pt has 1+ pitting edema to lower extremities that is tender to touch. Pt reports 4/10 pain in abdomen and indicates to her sternum as well but denies chest pain or SOB. Pt is a high fall risk d/t recent multiple falls and mentation, does not use call light despite repeated education but does call out when staff are within eye sight, but will attempt to exit the bed. Bed alarm is on and functioning and pt is within view of the nursing station for pt's safety.
[2019-07-21 08:06] LABS: Add Manual Diff / Slide Review NO; Basophils Absolute Auto 0 /uL (0-100); Basophils Percent Auto 0.3 % (0-2); Eosinophils Absolute Auto 200 /uL (0-450); Eosinophils Percent Auto 2.2 % (2-4); Hematocrit 27.6 % (36-46); Hemoglobin 8.8 g/dL (12.0-16.0); Lymphocytes Absolute Auto 1300 /uL (1100-4500); Lymphocytes Percent Auto 11.7 % (25-40); Mean Corpuscular HGB Conc 31.9 % (30-36); Mean Corpuscular Volume 84.7 fL (80-100); Monocytes Absolute Auto 200 /uL (0-900); Monocytes Percent Auto 1.8 % (3-14); Neutrophils Absolute Auto 9100 /uL (1500-7000); Platelet Count 218 X10^3/uL (150-400); Red Blood Cell Count 3.26 X10^6/uL (4.0-5.2); Red Cell Distribution Width 20.2 % (11.6-14.8); White Blood Cell Count 10.8 X10^3/uL (4.5-11.0)
[2019-07-21] MEDS: MULTIVITAMIN 1 TABLET 1 TAB PO (08:13)
[2019-07-21] MEDS: METOPROLOL ER 50 MG TABLET PO ×2 (08:13→20:01)
[2019-07-21] MEDS: PANTOPRAZOLE 40 MG TABLET PO (08:13)
[2019-07-21] MEDS: FOLIC ACID 1 MG TABLET PO (08:14)
[2019-07-21] MEDS: dilTIAZem CD 180 MG CAP PO (08:37)
--- NOTE | 2019-07-21 13:20 | PM.PN.1 ---
Subjective Date Patient Seen: 07/21/19 Time Patient Seen: 13:20 Interval history: Nola Garcia is an 84-year-old female patient with a history significant for atrial fibrillation anticoagulated on Eliquis, hypertension, dementia and rheumatoid arthritis who presented to the ED following 3 ground level falls and found to have acute blood loss anemia secondary to GI bleed, she was found to have a fungating mass in her stomach with recent stigmata of bleeding. She is currently awaiting discharge to a SNF rehab, her H/h was improved this morning. She currently denies headache, shortness of breath, chest pain, abdominal pain, nausea, vomiting, fever, chills, dysuria, diarrhea or constipation. She is voiding and eliminating without difficulty. She has generalized weakness with recurrent falls. She currently endorses R hip pain only. Exam Vital Signs (past 8 hours): - 07/21/19 07:20 07/21/19 07:45 07/21/19 11:35 Temperature 98.4 F 97.4 F L Pulse Rate 76 79 Respiratory Rate 20 18 Blood Pressure 111/68 106/57 L Pulse Oximetry 100 95 99 Oxygen Delivery Method Room Air Oxygen Flow Rate 0 Narrative Exam Narrative: General: Elderly female lying in bed and in no acute distress, well-developed, well-nourished, advanced dementia at baseline, alert oriented to person only, poor historian but appropriately interactive otherwise. HEENT: Normocephalic, traumatic. Small abrasion over left eyebrow. Patient thought to have contusion/ecchymoses of eyes however, a removable and was likely makeup. External ears without defect. Pupils equal, round, and reactive to light. Anicteric sclerae, moist conjunctivae, and no lid lag. Oropharynx free of erythema and cobble stoning with moist mucosa. Neck: Supple with full range of motion. No jugular venous distension. No lymphadenopathy or thyromegaly. Cardiovascular: Irregularly irregular without murmurs, rubs, or gallops appreciated. Pulmonary: Clear to auscultation bilaterally without crackles, wheezes, or rhonchi. Normal respiratory effort with no use of accessory muscles. Abdomen: Soft, bowel sounds present, nontender, nondistended. No hepatosplenomegaly or masses appreciated. Extremities: No clubbing or cyanosis. Mild bipedal edema. Skin: Normal temperature, turgor, and texture; no ulcers, or subcutaneous nodules appreciated. Seborrhea keratoses scattered throughout entire body/skin. Neurological: Cranial nerves grossly intact. Psychiatric: Normal mood and affect. Alert and oriented to person only. Objective Labs Result Diagrams: 07/21/19 07:54 07/20/19 08:20 Labs: Laboratory Results - last 24 hr 07/21/19 07:54 WBC 10.8 RBC 3.26 L Hgb 8.8 L Hct 27.6 L MCV 84.7 MCH 27.0 MCHC 31.9 RDW 20.2 H Plt Count 218 Neut % (Auto) 84.0 H Lymph % (Auto) 11.7 L Frederick % (Auto) 1.8 L Eos % (Auto) 2.2 Baso % (Auto) 0.3 Neut # (Auto) 9100 H Lymph # (Auto) 1300 Frederick # (Auto) 200 Eos # (Auto) 200 Baso # (Auto) 0 Nucleated RBCs Cancelled Hypersegmented Neuts Cancelled Hypogranular Neuts Cancelled Reactive Lymphocytes Cancelled Smudge Cells Cancelled Other Cell Type Cancelled Toxic Granulation Cancelled Toxic Vacuolation Cancelled Dohle Bodies Cancelled Kylie Rods Cancelled WBC Morphology Comment Cancelled Platelet Estimate Cancelled Clumped Platelets Cancelled Plt Morphology Comment Cancelled RBC Morphology Cancelled Dimorphic RBCs Cancelled Polychromasia Cancelled Hypochromasia Cancelled Poikilocytosis Cancelled Basophilic Stippling Cancelled Anisocytosis Cancelled Microcytosis Cancelled Macrocytosis Cancelled Spherocytes Cancelled Pappenheimer Bodies Cancelled Sickle Cells Cancelled Target Cells Cancelled Tear Drop Cells Cancelled Ovalocytes Cancelled Stomatocytes Cancelled Helmet Cells Cancelled Fallon-Edgerton Bodies Cancelled Cato Rings Cancelled David Cells Cancelled Acanthocytes (Spur) Cancelled Rouleaux Cancelled Schistocytes Cancelled Assessment & Plan Assessment & Plan narrative: Nola Garcia is an 84-year-old female patient with a history significant for atrial fibrillation anticoagulated on Eliquis, hypertension, dementia and rheumatoid arthritis who presented to the ED following 3 ground level falls and found to have acute blood loss anemia secondary to GI bleed. 1. Acute upper GI bleed, secondary to fungating gastric mass, present on admission. Improving. -Patient presented after 3 ground level fall secondary to symptomatic acute blood-loss anemia from upper GI bleed -Hemoccult positive. History of melanotic stool. -Continue Protonix 40 mg daily to help with repithelialization of fungating mass. -General surgery was consulted and Dr. Aviles performed EGD in which a gastric fungating mass with stigmata of bleeding and oozing was present and clear source of GI bleed. Recommended monitor blood counts over night, transfusion if needed, and okay to discharge once blood counts are stable possibly tomorrow. The patient is not a surgical candidate due to advanced dementia, comorbidities and her age. Plan for follow-up with general surgery once biopsies resulted and possible oncology referral. 2. Acute blood loss anemia, on anemia of chronic disease, present on admission. Active. -Acute component secondary to blood loss and chronic component secondary to rheumatoid arthritis. -Initial hemoglobin 8.9. Continue to trend down to 7.6 today. Plan to transfuse 2 units PRBC. Transfusion goal < 7.5 due to significant comorbidity of RA and vascular disease. -Continue to monitor CBC daily. 3. Acute hypokalemia, not present on admission. Active. -Resolved. 4. Acute on chronic frequent falls, secondary to generalized weakness and deconditioning, present on admission. Stable. -Patient with 3 falls in the last 24 hours with 2 visits to the emergency department. -CT brain without contrast did not demonstrate any acute intracranial abnormalities. -Patient with right hip pain after frequent falls and hip x-ray was performed and read as avascular necrosis with severe degenerative joint disease. Orthopedic surgeon was consulted and does not believe patient has avascular necrosis but rather severe advanced arthritis of right hip. History of left total hip arthroplasty is stable would benefit from orthopedic evaluation for right hip as outpatient. -Ordered physical and occupational valuation treatment, pending. -Discontinued meloxicam indefinitely as patient has fungating mass that is actively bleeding.. 4. Advanced dementia, chronic, present on admission. Stable. -The patient lives with her 90-year-old and has a assessment counselor. -HARDWARE TEST ENGINEER consulted to evaluate safety of living situation and possible penitentiary placement for rehabilitation versus long-term care. 5. Chronic atrial fibrillation on Eliquis, present on admission. Stable. -No complaints of chest pain, shortness of breath. -Continue home diltiazem 180 mg daily and metoprolol succinate 50 mg twice daily. -Discontinued Eliquis indefinitely as patient has fungating mass that is actively bleeding. 6. Hypertension, chronic, present on admission. Stable. -Continue home diltiazem CD 180 mg daily and metoprolol succinate 50 mg twice daily with hold parameters of HR < 75 bpm or SBP < 105 mmHg. 7. Rheumatoid arthritis, chronic, present on admission. Stable. -Continue methotrexate 15 mg on Monday. Dispo: pending SNF rehab placement. Quality VTE Deep Vein Thrombosis/Pulmonary Embolism Present on Admission: No
--- NOTE | 2019-07-21 14:46 | CM.DPNOTE ---
DCP Cont: Reviewed chart. Placed call to Chanda Fletcher, Leeann answered the admission cell and said we can not accommodate pt's needs asked that Leeann elaborate and she said she couldn't. Further information will likely need to come from weekday staff. TC placed to Rosemary at [facility], reviewed referral over the phone and faxed referral packet. Rosemary will need to bring this to her team Monday and may be able to schedule a bedside assessment, pending. Then placed call to Shikha Knapp P# [phone], assisting batch trucker Vilma Briceno P#[phone], updated Shikha on the potential challenge of finding a SNF that can meet pt's needs. Pt has been easily re-directed and calm/cooperative per notes but she does present as a fall risk if she attempts to get up w/o assist. Shikha explained that Vilma has known pt's spouse Yobany (91 yo) for a long time and Yobany has asked for help w/pt because he can no longer safely provide care at home. Shikha relays that Yobany has the financial capability of paying privately for memory care and Shikha suggests it be the DC goal from . Shikha hopeful that a memory care unit in [place] is available so pt's spouse doesn't need to drive out of town. Contacted [facility], no memory care beds, [facility], no beds. B/U choices: [facility] ([place]), [facility] ([place]), no one available on Monday to discuss quotes or bed availability. Updated Shikha W re: above. She will contact Kenyetta at and Shaila at [facility] to discuss this referral. Spouse Yobany can be contacted w/update, but Shikha warns he can not always hear or retain information well, thus the need for assist in DC planning. P: DC likely to privately paid memory care unit if a bed can be secured. LOGISTICS RESEARCH ENGINEER team following closely for coordination of safe DCP. Per PT: Pt might benefit from short stay at [facility] if they would consider, if not, pt may transfer to memory care at either , [facility] or [facility] pending contact w/these facilities Monday, bed availability etc. DALTON Garcia
--- NOTE | 2019-07-21 15:50 | PT.IPTN ---
Current Diagnoses Melena (07/18/19) Surgery Performed Operation Date: 07/19/19 12:45 Actual Procedures p Esophagogastroduodenoscopy with biopsies - Kalpesh Aviles MD Physical Therapy Treatment Note M2 PT-IP Current Condition Start: 07/19/19 08:08 Freq: NEEDED Status: Active Protocol: Document 07/19/19 10:13 HH (Rec: 07/19/19 10:44 [email or web address]) Physical Therapy Current Condition Current Condition Evaluation Date 07/19/19 Treatment Diagnosis anemia and acute blood loss and intestinal bleeding, AMS, weakness, falls Onset Date 07/18/19 Weight Bearing Status Weight Bearing Status Weight Bear as Tolerated M3 PT-IP Subjective Start: 07/19/19 08:08 Freq: NEEDED Status: Active Protocol: Document 07/21/19 15:10 LJ (Rec: 07/21/19 15:50 LJ [id number]) Subjective Physical Therapy Visit Type Type Treatment Note Visit Start Time 15:10 Visit Stop Time 15:41 Total Visit Minutes 31 Physical Therapy Visit Comments Patient Comments Pt in bed willing to get up and walk. States it will be good for her hip Therapy Pain Assessment Pain When Pain Assessed During Mobility Pain Present Pain Present Pain Reported M4 PT-IP Mobility and Gait Start: 07/19/19 08:08 Freq: NEEDED Status: Active Protocol: Document 07/21/19 15:10 LJ (Rec: 07/21/19 15:50 LJ [id number]) PT-Bed Mobility Assessment Rolling Type of Rolling Roll to Left Level of Assist Minimal Assistance Supine to Sit Supine to Sit Minimal Assistance 1 Person Assistance Bedrails Scooting Scooting to Edge of Bed Minimal Assistance Scooting Up and Down in Bed Contact Guard Assistance PT-Transfer Assessment Sit to and From Stand Sit to and from Stand Contact Guard Assistance 1 Person Assistance Use of Upper Extremities Equipment Transfer Assistive Device Gait Belt Front Wheeled Walker Orthotic/Prosthetic Devices or Brace: No Transfers Transfer Destination Bed Transfer Ability Level of Assist Contact Guard Assistance Minimal Assistance Comments Mobility Comments Pt in bed wanting to get up and walk. Reports pain in right hip when rolling onto left side. R'qd assist with LEs to sit upright. Able to scoot to edge of bed with verbal cues and assist with bed bad. Gait Assessment Gait Gait Assistance Required: Contact Guard Assist Distance (Feet) 150 Able to Maintain Weight Bearing Status Yes During Gait Assistive Devices Assistive Device Gait Belt Front Wheeled Walker Orthotic/Prosthetic Devices or Brace: No Gait Deviations General Gait Pattern Antalgic Decreased Stride Length Decreased Feet Clearance Lateral Trunk Lean Factors Limiting Gait Function Factors Limiting Gait Function Decreased Activity Tolerance Decreased Strength Limited Range of Motion Pain Poor Balance Poor Safety Awareness Comments Gait Comments Pt ambulates in hallway ~150' without LOB but did steer FWW into wall at one point. Veers to the right but is steady with decreased foot clearance and shortened steps. R'qs verbal cues for turns and orienting. M5 PT-IP Objective Assessments Start: 07/19/19 08:08 Freq: NEEDED Status: Active Protocol: Document 07/19/19 10:13 (Rec: 07/19/19 10:44 [email or web address]) Orientation Orientation/Cognition Level of Alertness Alert Orientation Name Birthday Situation Language Function Ability No Deficits Noted Safety Awareness Understands Safety Issues Memory Description Short Term Impaired Gross Range of Motion Upper Extremity ROM Assessment Within Functional Limits Lower Extremity ROM Assessment Right Impaired Strength Upper Extremity Strength Assessment Within Functional Limits Lower Extremity Strength Assessment Right Impaired Hip 3+/5 Knee 4/5 Coordination Assessment Gross Coordination Gross Coordination WNL Sensation Assessment Sensation Gross Sensation WNL Muscle Tone Muscle Tone WNL Yes M6 PT-IP Treatment Start: 07/19/19 08:08 Freq: NEEDED Status: Active Protocol: Document 07/19/19 10:13 HH (Rec: 07/19/19 10:44 [email or web address]) Physical Therapy Treatment Education Education Provided Safety M7 PT-IP Assessment and Plan Start: 07/19/19 08:08 Freq: NEEDED Status: Active Protocol: Document 07/21/19 15:10 LJ (Rec: 07/21/19 15:50 LJ [id number]) PT Summary Assessment and Plan Summary Impairments Pain ROM Strength Balance Cognition Bed Mobility Transfers Gait Activity Tolerance Assessment Summary Pt steady on her feet but lacks safety awareness and needs direction assist with FWW as she steers to the right often. Frequency of Treatment Frequency Of Treatment Once a Day Treatment Plan Physical Therapy Treatment Plan Bed Mobility Training Transfer Training Gait Training Therapeutic Exercise Balance Retraining Discharge Planning Hot or Cold Pack Neuromuscular Re-ed Other Recommendations and Next Treatment balance training as owen Focus safety awareness. Recommendations To Nursing Amount of Assist Needed 1 Person Assist Discharge Recommendations PT Discharge Recommendations SNF Rehab
[2019-07-21] MEDS: ACETAMINOPHEN 325 MG TABLET 650 MG PO (20:01)
[2019-07-22] VITALS: BP 117/68; PULSE 82; RESP 16; TEMP 36.6; O2SAT 100
[2019-07-22 05:25] VITALS: BP 104/59; PULSE 74; RESP 16; TEMP 36.4; O2SAT 100
[2019-07-22 07:00] VITALS: BP 97/59; PULSE 63; RESP 15; TEMP 36.6; O2SAT 98
[2019-07-22 08:00] VITALS: O2SAT 97
--- NOTE | 2019-07-22 09:17 | OT.IP.TRT ---
Current Diagnoses Melena (07/18/19) Surgery Performed Operation Date: 07/19/19 12:45 Actual Procedures p Esophagogastroduodenoscopy with biopsies - Kalpesh Aviles MD Occupational Therapy Treatment Note M2 OT-IP Current Condition Start: 07/19/19 12:20 Freq: Status: Active Protocol: Document 07/20/19 16:18 CGR (Rec: 07/20/19 16:29 CGR [email or web address]) Occupational Therapy Current Condition Current Condition Evaluation Date 07/20/19 Treatment Diagnosis GI bleed, AMS, weakness, falls , avascular necrosis of R hip M3 OT- IP Subjective and Pain Start: 07/19/19 12:20 Freq: Status: Active Protocol: Document 07/22/19 09:03 CCC (Rec: 07/22/19 09:17 CCC [email or web address]) OT- Subjective Occupational Therapy Visit Type Type Treatment Note Visit Start Time 08:37 Visit Stop Time 09:01 Total Visit Minutes 24 Occupational Therapy Visit Comments Patient Comments Pt agreed to do cognitive assessment and do grooming needs at the sink. OT Pain Assessment Pain When Pain Assessed At Rest Pain Present Pain Present Pain Reported M4 OT- IP ADL's Start: 07/19/19 12:20 Freq: Status: Active Protocol: Document 07/22/19 09:03 CCC (Rec: 07/22/19 09:17 [facility] [email or web address]) OT ADL-Grooming General Evaluation Grooming Ability Standby Assistance Areas Needing Assistance Retrieving/Set-up of Grooming Items Comments OT Grooming Comments set-up assist, vc for items on the counter. OT ADL-Oral Care General Eval Oral Care Ability Standby Assistance Comments Oral Care Comments SBA while standing with FWW to do grooming needs. OT ADL-Toileting Comments OT Toileting Comments Pt states does not have to go at this time. OT ADL-Bathing Comments OT Bathing Comments Pt states too tired to shower at this time. M5 OT- IP IADL's Start: 07/19/19 12:20 Freq: Status: Active Protocol: Document 07/20/19 16:18 CGR (Rec: 07/20/19 16:29 CGR [email or web address]) OT-Instrumental Activities of Daily Living Deficits IADL Deficits Identified Deficits Home Safety Awareness Awareness of Need for Assistance at Home Decreased Awareness Ability to Problem Solve Emergency Unable to Problem Solve Situations M6 OT- IP Functional Cognition Start: 07/19/19 12:20 Freq: Status: Active Protocol: Document 07/22/19 09:03 [facility] (Rec: 07/22/19 09:17 [facility] [email or web address]) Cognitive Factors Limiting Selfcare Function Cognitive Ability Level of Alertness Alert Confusional State Patient Orientation Name Attention Span Ability Capable of Focused Attention Unable to Sustain Attention Ability to Follow Commands Able to Follow One Step Commands Memory Description Immediate Impaired Short Term Impaired Health Policy Analyst Impaired Working Impaired Safety Awareness Underestimates Need for Assistance Problem Solving Ability Unable to Identify Errors Needs Assist to Identify Solutions Cognitive Tests SLUMS Pt scorerd 8/3O , normal score for pt's level of education is 27/30. Therefore pt's scored implies dementia. Cognitive Comments Cognitive Assessment Comments Pt needing cues to sequence through task of grooming needs . VC to point out items on the counter. Pt forgot how to use the faucet even after education several times. In addition, pt forgot that she already brushed her teeth and proceeded to brush them again after washing her face. Pt trying to walk back from the sink to the chair and forgetting to use the FWW and needing reminders to hold to the FWW. M7 OT- IP Mobility and Balance Start: 07/19/19 12:20 Freq: Status: Active Protocol: Document 07/22/19 09:03 [facility] (Rec: 07/22/19 09:17 [facility] [email or web address]) OT-Transfer Assessment Sit to and From Stand Sit to and from Stand Contact Guard Assistance Transfers Transfer Ability Contact Guard Assistance Technique Transfer Destination Chair Devices Transfer Assistive Devices Gait Belt Front Wheeled Walker Comments Mobility Comments Pt SBA to stand from recliner and able to use hands to push up from the armrests appropriately. OT- Balance Assessment Sitting Balance and Reactions Static Sitting Balance Ability Good Dynamic Sitting Balance Ability Fair Standing Balance and Reactions Static Standing Balance Ability Fair M8 OT- IP Objective Assessments Start: 07/19/19 12:20 Freq: Status: Active Protocol: Document 07/20/19 16:18 CGR (Rec: 07/20/19 16:29 [facility]GR [email or web address]) OT Strength Upper Extremity Strength Assessment Within Functional Limits Comments Strength Comments Grossly 3+/5 OT- Coordination Assessment Upper Extremity Finger to Nose Test Within Functional Limits Finger Tapping Test Within Functional Limits OT-Muscle Tone Assessment Muscle Tone WNL Yes OT Sensation Assessment Edema Edema Absent M9 OT- IP Assessment and Plan Start: 07/19/19 12:20 Freq: Status: Active Protocol: Document 07/22/19 09:03 [facility] (Rec: 07/22/19 09:17 [facility] [email or web address]) OT Summary Assessment and Plan Potential Rehabilitation Potential Fair Summary OT Impairments Pain Strength Balance Functional Cognition Functional Mobility Grooming Dressing Toileting Bathing Toilet Transfers Shower Transfers Progress Towards Goals Progressing Toward Goals Assessment Summary Due to pt's level of cognition , pt would benefit from 24/7 care or memory care. Pt needing vc to sequence through tasks of ADL's and functinal mobility for safety and completeness. Pt is improving with activity tolerance and mobility needs however will continue to need at least supervision for all Adl needs. Goals Self-Feeding Goal Standby Assistance Grooming Goal Standby Assistance Dressing Goal Standby Assistance Toileting Goal Standby Assistance Bathing Goal Contact Guard Assistance Toilet Transfer Goal Standby Assistance Shower Transfer Goal Standby Assistance Days to Meet Goals 5 Frequency of Treatment Frequency Of Treatment Once a Day Treatment Plan OT Treatment Plan ADL Training Functional Cognition Training Functional Mobility Patient/Family Education Discharge Planning Discharge Recommendations OT Discharge Recommendations Home with 24/7 Assist Other Discharge Recommendations Pt would benefit from memory care and further therapy to help improve overall endurance and strength for mobility needs to help prevent falls.
[2019-07-22] MEDS: MULTIVITAMIN 1 TABLET 1 TAB PO (09:22)
[2019-07-22] MEDS: PANTOPRAZOLE 40 MG TABLET PO (09:22)
[2019-07-22] MEDS: FOLIC ACID 1 MG TABLET PO (09:22)
[2019-07-22] MEDS: SODIUM CHLORIDE 0.9% FLUSH 10 ML IV (09:22)
--- NOTE | 2019-07-22 10:23 | DIET.PN ---
Dietary Progress Note Assessment: 84y F MNA 12 reporting moderate decrease in appetite and 1-3kg wt loss in 3 mo. Met c pt and spouse who reports pt decrease appetite started c increasing hip px 1y ago. Has felt nauseous past few weeks may be assoc. c mass in stomach. I&Os ~75% while in hospital. Usual intake: cooks, is health minded, low-sodium, good PRO, adequate fiber, batch cooks B: pumpkin seed granola c milk and banana L: lean hamburger c tomato, onions and beans D: LS tomato soup c added milk or prepared [employer] meal HT: 160cm WT: 52.9kg (10/11/18: 58kg per [facility] records) Wt Change: 9% in 6mo BMI: 20.7 (low for age) Labs: hgb 8.8 (L) Nutrition Diagnosis: Acute Moderate PCM r/t persistent low level nausea for past month aeb <75% EER for ~1mo, nausea for ~1mo, 9% wt loss in <6mo, BMI of 20.7 (low for age). Interventions: Recc ONS Ensure Enlive c am tray providinkcal and 20g PRO in addition to trays. EERs: 1500kcal (30kcal/kg), 60g PRO (1.1g/kg elder), 1.5L fluids (30mL/kg) Monitoring/Evaluations: I&Os, wt
--- NOTE | 2019-07-22 10:27 | PC.NURSE ---
Addendum entered by Aspen Rosas R.N. 07/22/19 15:56: DC - staff arrived, paperwork provided and report called to nurse Kay at [facility], belongings gathered, including clothing, glasses. Addendum entered by Aspen Rosas R.N. 07/22/19 15:10: TSF - per [facility], staff took earlier prepared folder info, at discharge, reviewed instructions w/spouse, addl packet provided with instructions and last medications given, belongings gathered, including clothing, glasses, wearing a silver colored ring with blue stone. Addendum entered by Aspen Rosas R.N. 07/22/19 11:16: SS - staff from [facility] here for eval. Original Note: AM NOTE - pt up to chair at shift report, dozing, awakens easily, smiling, no report of discomfort, oriented self, could not name town or hospital, hr irreg w/murmur, small abraison at 4th knuckle r hand, small scab r 4th toe, dry, flaky skin mayra le, lotion applied, owen breakfast with set up assist.
[2019-07-22 11:00] VITALS: BP 85/56; PULSE 88; RESP 17; TEMP 36.6; O2SAT 100
--- NOTE | 2019-07-22 12:42 | P.DS_ITS ---
History of Present Illness Date Patient Seen: 07/22/19 Time Patient Seen: 12:42 Chief complaint: GLF Narrative: As per MANJEET Goins, MsMore Garcia is an 84-year-old female patient with a history significant for atrial fibrillation anticoagulated on Eliquis, hypertension, dementia and rheumatoid arthritis who presents to the ER today following 3 falls in the last 24 hours. The patient was seen in the ER yesterday where she was evaluated following hitting her head and discharged home and fell again today prompting her return. The patient states she ?gets weak and falls.? Today she complains of right hip pain. It is also reported by a friend that the patient has been more confused over the last 3 days. The patient has been on Eliquis for atrial fibrillation. The patient is unable to provide details of her medications due to her advanced dementia. The patient examined lying in bed a denies complaints of pain but believe she is in a hotel. She denies head pain though does acknowledge bruise to her left forehead where she has ecchymoses. She denies loss of consciousness neck or back pain. She denies chest pain and acknowledges occasional palpitations. She denies shortness of breath, exertional dyspnea, cough or wheezing. She reports no complaints of abdominal pain, nausea or vomiting. It is unclear from the information provided by the patient whether she was or was not having bloody stools. Per report from the ER provider the patient was to have a colonoscopy and Eliquis stopped but is unknown whether this occurred. Upon arrival in the ER the patient has a temperature of 99.0?, heart rate of 75, blood pressure 111/58, respirations 15 saturating 100% on room air. CT of the abdomen finds mild diverticulosis of the descending colon and sigmoid colon. She had a CT of the head done yesterday which was negative for intracranial pathology. 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 Chest x-rays taken which finds no acute processes. On laborator analysis the patient has a white count of 13.7, hemoglobin of 8.9 and hematocrit of 27.4 which is down from her previous 10.4 and 32.4. Her electrolytes are within normal limits and she has a BUN of 23 and creatinine is 0.7. Her nonfasting glucose is 115. She has a bilirubin of 1.2 AST of 37, ALT of 22 and alkaline phosphatase 79. Her cardiac markers are negative she does have slightly elevated BNP of 164. Her urinalysis is unremarkable Discharge Providers Date of admission: 07/18/19 14:22 Discharge Date: 07/22/19 Primary care physician: Evaristo Obregon MD Consults: 07/18/19 14:15 Consult to General Surgery Routine Comment: Consulting Provider: Isaias Lane Reason for consultation: gi bleed Has provider been notified: Yes 07/18/19 20:36 Consult to Discharge Planning Routine Comment: 07/18/19 20:37 Consult to Filter Washer Routine Comment: Dementia assessment 07/18/19 20:43 Consult to Physical Therapy Evaluate & Treat Comment: falls, avascular necorsis right hip, LTHA, RTKA Physician Instructions: Evaluate and Treat 07/18/19 20:44 Consult to Occupational Therapy Evaluate & Treat Comment: falls, avascular necorsis right hip, LTHA, RTKA Physician Instructions: Evaluate and treat 07/22/19 12:27 Consult to Home Health Routine Comment: DX: Ground level fall Reason For Exam: Arrange home health for PT/OT Discharge provider: Kayden Johnston DO Summary Discharge Diagnosis: 1. 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 Improving. 2. Acute blood loss anemia, on anemia of chronic disease, present on admission. Stable. 3. Acute hypokalemia, not present on admission. Active. 4. Acute on chronic frequent falls, secondary to generalized weakness and deconditioning, present on admission. Stable. 5. Advanced dementia, chronic, present on admission. Stable. 6. Chronic atrial fibrillation on Eliquis, present on admission. Stable. 7. Hypertension, chronic, present on admission. Stable. 8. Rheumatoid arthritis, chronic, present on admission. Stable. 9. Suspected malignant neoplasm Hospital Course: Nola Garcia is an 84-year-old female patient with a history significant for atrial fibrillation anticoagulated on Eliquis, hypertension, dementia and rheumatoid arthritis who presented to the ED following 3 ground level falls and found to have acute blood loss anemia secondary to GI bleed. On upper endoscopy she was found to have a fungating mass which is a suspected malignant neoplasm. Her hemoglobin stabilized and she was maintained on a PPI. Her Eliquis was discontinued, as were any NSAIDs. She is stable for discharge to [facility] with plan for PT and OT to be continued there. 1. 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 Improving. -Patient presented after 3 ground level fall secondary to symptomatic acute blood-loss anemia from upper GI bleed -Hemoccult positive. History of melanotic stool. -Continue Protonix 40 mg daily to help with repithelialization of fungating mass. -General surgery was consulted and Dr. Aviles performed EGD in which a gastr ic fungating mass with stigmata of bleeding and oozing was present and clear source of GI bleed. The patient is not a surgical candidate due to advanced dementia, comorbidities and her age. Plan for follow-up with general surgery once biopsies resulted and possible oncology referral. 2. Acute blood loss anemia, on anemia of chronic disease, present on admission. Stable. -Acute component secondary to blood loss and chronic component secondary to rheumatoid arthritis. -Initial hemoglobin 8.9. Trended down to 7.6, but subsequently responded. Her hemoglobin on discharge was 8.8. -continue PPI as noted above 3. Acute hypokalemia, not present on admission. Active. -Resolved. 4. Acute on chronic frequent falls, secondary to generalized weakness and deconditioning, present on admission. Stable. -Patient with 3 falls in the last 24 hours with 2 visits to the emergency department. -CT brain without contrast did not demonstrate any acute intracranial abnormalities. -Patient with right hip pain after frequent falls and hip x-ray was performed and read as avascular necrosis with severe degenerative joint disease. Orthopedic surgeon was consulted and does not believe patient has avascular necrosis but rather severe advanced arthritis of right hip. History of left total hip arthroplasty is stable would benefit from orthopedic evaluation for right hip as outpatient. -Ordered physical and occupational therapy to be continued as outpatient. -Discontinued meloxicam indefinitely as patient has fungating mass. 5. Advanced dementia, chronic, present on admission. Stable. -The patient lives with her 90-year-old and has a day care aide. -PRODUCTION CONTROL CLERK consulted to evaluate safety of living situation and possible detention placement for rehabilitation versus long-term care. 6. Chronic atrial fibrillation on Eliquis, present on admission. Stable. -No complaints of chest pain, shortness of breath. -Continue home diltiazem 180 mg daily and metoprolol succinate 50 mg twice daily. -Discontinued Eliquis indefinitely as patient has fungating mass that is actively bleeding. 7. Hypertension, chronic, present on admission. Stable. -Continue home diltiazem CD and metoprolol succinate 50 mg twice daily with hold parameters of HR < 75 bpm or SBP < 105 mmHg. -her blood pressures remained on the low side while inpatient, so home diltiazem was changed from 180 mg to 120 mg daily. 8. Rheumatoid arthritis, chronic, present on admission. Stable. -Continue methotrexate 15 mg on Monday. 9. Suspected malignant neoplasm - -follow up with General surgery as noted above as outpatient for results of biopsy. Dispo: Patient is being discharged to [facility], with plan for outpatient physical therapy and occupational therapy. She will follow up the surgical biopsy results in the General surgery Clinic. Status at Discharge Cognitive/behavioral status at discharge: at baseline, confused Functional status at discharge: uses cane/walker Overall status at discharge: patient is progressing back to baseline Time Spent with Patient Greater than 30 minutes Exam Vital Signs (past 8 hours): - 07/22/19 05:25 07/22/19 07:00 07/22/19 08:00 Temperature 97.6 F 97.8 F Pulse Rate 74 63 Respiratory Rate 16 15 Blood Pressure 104/59 L 97/59 L Pulse Oximetry 100 98 97 Oxygen Delivery Method Room Air Oxygen Flow Rate 0 Narrative Exam Narrative: General: Elderly female lying in bed and in no acute distress, well-developed, well-nourished, advanced dementia at baseline, alert oriented to person only, poor historian but appropriately interactive otherwise. HEENT: Normocephalic, traumatic. Small abrasion over left eyebrow. Patient thought to have contusion/ecchymoses of eyes however, a removable and was likely makeup. External ears without defect. Pupils equal, round, and reactive to light. Anicteric sclerae, moist conjunctivae, and no lid lag. Oropharynx free of erythema and cobble stoning with moist mucosa. Neck: Supple with full range of motion. No jugular venous distension. No lymphadenopathy or thyromegaly. Cardiovascular: Irregularly irregular without murmurs, rubs, or gallops appreciated. Pulmonary: Clear to auscultation bilaterally without crackles, wheezes, or rhonchi. Normal respiratory effort with no use of accessory muscles. Abdomen: Soft, bowel sounds present, nontender, nondistended. No hepatosplenomegaly or masses appreciated. Extremities: No clubbing or cyanosis. Mild bipedal edema. Skin: Normal temperature, turgor, and texture; no ulcers, or subcutaneous nodules appreciated. Seborrhea keratoses scattered throughout entire body/skin. Neurological: Cranial nerves grossly intact. Psychiatric: Normal mood and affect. Alert and oriented to person only. Objective Labs Result Diagrams: 07/21/19 07:54 07/20/19 08:20 Discharge Plan Discharge Plan Patient Disposition: Assisted Living Other facility: [facility] Transportation: Facility vehicle Discharge comment: Hospital Course: Nola Garcia is an 84-year-old female patient with a history significant for atrial fibrillation anticoagulated on Eliquis, hypertension, dementia and rheumatoid arthritis who presented to the ED following 3 ground level falls and found to have acute blood loss anemia secondary to GI bleed. On upper endoscopy she was found to have a fungating mass which is a suspected malignant neoplasm. Her hemoglobin stabilized and she was maintained on a PPI. Her Eliquis was discontinued, as were any NSAIDs. She is stable for discharge to [facility] with plan for PT and OT to be continued there. 1. 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 Improving. -Patient presented after 3 ground level fall secondary to symptomatic acute blood-loss anemia from upper GI bleed -Hemoccult positive. History of melanotic stool. -Continue Protonix 40 mg daily to help with repithelialization of fungating mass. -General surgery was consulted and Dr. Aviles performed EGD in which a gastric fungating mass with stigmata of bleeding and oozing was present and clear source of GI bleed. The patient is not a surgical candidate due to advanced dementia, comorbidities and her age. Plan for follow-up with general surgery once biopsies resulted and possible oncology referral. 2. Acute blood loss anemia, on anemia of chronic disease, present on admission. Stable. -Acute component secondary to blood loss and chronic component secondary to rheumatoid arthritis. -Initial hemoglobin 8.9. Trended down to 7.6, but subsequently responded. Her hemoglobin on discharge was 8.8. -continue PPI as noted above 3. Acute hypokalemia, not present on admission. Active. -Resolved. 4. Acute on chronic frequent falls, secondary to generalized weakness and deconditioning, present on admission. Stable. -Patient with 3 falls in the last 24 hours with 2 visits to the emergency department. -CT brain without contrast did not demonstrate any acute intracranial abnormalities. -Patient with right hip pain after frequent falls and hip x-ray was performed and read as avascular necrosis with severe degenerative joint disease. Orthopedic surgeon was consulted and does not believe patient has avascular necrosis but rather severe advanced arthritis of right hip. History of left total hip arthroplasty is stable would benefit from orthopedic evaluation for right hip as outpatient. -Ordered physical and occupational therapy to be continued as outpatient. -Discontinued meloxicam indefinitely as patient has fungating mass. 5. Advanced dementia, chronic, present on admission. Stable. -The patient lives with her 90-year-old and has a day care aide. -PRODUCTION CONTROL CLERK consulted to evaluate safety of living situation and possible detention placement for rehabilitation versus long-term care. 6. Chronic atrial fibrillation on Eliquis, present on admission. Stable. -No complaints of chest pain, shortness of breath. -Continue home diltiazem 180 mg daily and metoprolol succinate 50 mg twice daily. -Discontinued Eliquis indefinitely as patient has fungating mass that is actively bleeding. 7. Hypertension, chronic, present on admission. Stable. -Continue home diltiazem CD and metoprolol succinate 50 mg twice daily with hold parameters of HR < 75 bpm or SBP < 105 mmHg. -her blood pressures remained on the low side while inpatient, so home diltiazem was changed from 180 mg to 120 mg daily. 8. Rheumatoid arthritis, chronic, present on admission. Stable. -Continue methotrexate 15 mg on Monday. 9. Suspected malignant neoplasm - -follow up with General surgery as noted above as outpatient for results of biopsy. I certify the postop hospital detention care is medically necessary on a continuing basis for any conditions for which he/ she received care during this hospitalization.: Yes The receiving facility has agreed to accept transfer and provide medical treatment.: Yes Discharge Med Rec/Prescriptions Prescriptions: New acetaminophen 325 mg Tablet 650 mg PO Q6HR PRN (Reason: As Needed For Fever/Mild Pain) 30 Days Qty: 30 RF: 0 diltiazem HCl 120 mg Capsule,Extended Release 24hr 120 mg PO DAILY 30 Days Qty: 30 RF: 0 Continued methotrexate sodium 2.5 MG tablet 6 tab PO QWEEKFR Qty: 0 RF: 0 Enbrel 50 MG/1 ML syringe 50 mg SQ QWEEKTH Qty: 0 RF: 0 melatonin 3 MG tablet 3 mg PO BEDTIME PRN (Reason: Sleep) Qty: 0 RF: 0 Restasis 1 EACH dropperette 1 drp OPHTH PRN PRN (Reason: Dry Eye(S)) Qty: 0 RF: 0 multivitamin Tablet 1 tab PO DAILY RF: 0 metoprolol succinate 50 mg Tablet Extended Release 24 Hr 50 mg PO BID RF: 0 folic acid 1 mg Tablet 1 mg PO DAILY RF: 0 cholecalciferol (vitamin D3) [Vitamin D3] 1,000 unit Tablet 1,000 unit PO DAILY RF: 0 pantoprazole [Protonix] 40 mg tablet,delayed release (DR/EC) 40 mg PO DAILY Qty: 30 RF: 0 nitroglycerin 0.4 mg Tablet, Sublingual 0.4 mg SUBLINGUAL Q5-15M PRN (Reason: Chest Pain) RF: 0 ferrous gluconate 324 mg (38 mg iron) Tablet 324 mg PO DAILY RF: 0 turmeric 720 mg capsule 720 mg PO DAILY RF: 0 Discontinued diltiazem HCl 180 mg capsule,extended release 24 hr 180 mg PO DAILY Qty: 30 RF: 0 meloxicam 15 mg tablet 15 mg PO DAILY PRN (Reason: pain) RF: 0 Eliquis 2.5 mg Tablet 2.5 mg PO BID RF: 0 Follow up/Referrals: [facility] [Provider Group] - 1 Week (For review of pathology results from Endoscopy.) Evaristo Obregon MD [Primary Care Provider] - Discharge Orders: Discharge (Order); Ordered 07/22/19 Ordered By: Kayden Johnston Discharge Health Status Brief summary of current health status: Hospital Course: Nola Garcia is an 84-year-old female patient with a history significant for atrial fibrillation anticoagulated on Eliquis, hypertension, dementia and rheumatoid arthritis who presented to the ED following 3 ground level falls and found to have acute blood loss anemia secondary to GI bleed. On upper endoscopy she was found to have a fungating mass which is a suspected malignant neoplasm. Her hemoglobin stabiliz ed and she was maintained on a PPI. Her Eliquis was discontinued, as were any NSAIDs. She is stable for discharge to [facility] with plan for PT and OT to be continued there. 1. 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 Improving. -Patient presented after 3 ground level fall secondary to symptomatic acute blood-loss anemia from upper GI bleed -Hemoccult positive. History of melanotic stool. -Continue Protonix 40 mg daily to help with repithelialization of fungating mass. -General surgery was consulted and Dr. Aviles performed EGD in which a gastric fungating mass with stigmata of bleeding and oozing was present and clear source of GI bleed. The patient is not a surgical candidate due to advanced dementia, comorbidities and her age. Plan for follow-up with general surgery once biopsies resulted and possible oncology referral. 2. Acute blood loss anemia, on anemia of chronic disease, present on admission. Stable. -Acute component secondary to blood loss and chronic component secondary to r heumatoid arthritis. -Initial hemoglobin 8.9. Trended down to 7.6, but subsequently responded. Her hemoglobin on discharge was 8.8. -continue PPI as noted above 3. Acute hypokalemia, not present on admission. Active. -Resolved. 4. Acute on chronic frequent falls, secondary to generalized weakness and deconditioning, present on admission. Stable. -Patient with 3 falls in the last 24 hours with 2 visits to the emergency department. -CT brain without contrast did not demonstrate any acute intracranial abnormalities. -Patient with right hip pain after frequent falls and hip x-ray was performed and read as avascular necrosis with severe degenerative joint disease. Orthopedic surgeon was consulted and does not believe patient has avascular necrosis but rather severe advanced arthritis of right hip. History of left total hip arthroplasty is stable would benefit from orthopedic evaluation for right hip as outpatient. -Ordered physical and occupational therapy to be continued as outpatient. -Discontinued meloxicam indefinitely as patient has fungating mass. 5. Advanced dementia, chronic, present on admission. Stable. -The patient lives with her 90-year-old and has a day care aide. -PRODUCTION CONTROL CLERK consulted to evaluate safety of living situation and possible detention placement for rehabilitation versus long-term care. 6. Chronic atrial fibrillation on Eliquis, present on admission. Stable. -No complaints of chest pain, shortness of breath. -Continue home diltiazem 180 mg daily and metoprolol succinate 50 mg twice daily. -Discontinued Eliquis indefinitely as patient has fungating mass that is actively bleeding. 7. Hypertension, chronic, present on admission. Stable. -Continue home diltiazem CD and metoprolol succinate 50 mg twice daily with hold parameters of HR < 75 bpm or SBP < 105 mmHg. -her blood pressures remained on the low side while inpatient, so home diltiazem was changed from 180 mg to 120 mg daily. 8. Rheumatoid arthritis, chronic, present on admission. Stable. -Continue methotrexate 15 mg on Monday. 9. Suspected malignant neoplasm - -follow up with General surgery as noted above as outpatient for results of biopsy. Precautions: Perry Provider Discharge Instructions Diet: Diet as Tolerated Liquid consistency: Normal/Thin Food texture: Regular Activity: As tolerated Special [facility] Rehab type: Physical therapy and Occupational therapy Discharge Data Primary Care Provider: Evaristo Obregon Attending Provider: Monse Ureña Admit Date/Time: 07/18/19 14:22 Quality VTE Deep Vein Thrombosis/Pulmonary Embolism Present on Admission: No
--- NOTE | 2019-07-22 13:26 | PT.IPTN ---
Current Diagnoses Melena (07/18/19) Surgery Performed Operation Date: 07/19/19 12:45 Actual Procedures p Esophagogastroduodenoscopy with biopsies - Kalpesh Aviles MD Physical Therapy Treatment Note Notes Pt is discharging to memory care unit today at 1500. Acute PT will sign off.
--- NOTE | 2019-07-22 16:03 | CM.DANOTE ---
DCP/continued: Reviewed chart. Per notes patient requiring memory care facility vs. SNF. Spoke with Shikha Knapp (patient advocate) and spouse re: plan. Shikha requesting [facility] evaluate for admit. Placed call to [facility] and she is agreeable to see today. Dr. Johnston notified. After assessment completed by [facility] patient accepted. [facility] reports that they can accept today. Paperwork provided to Dr. Johnston to complete for facility. Notified RN/[facility] of above. Spouse and patient both signed NARCISO. Shikha and spouse requesting that patient get HH at [facility]. Provided agency choice list to both Kenyetta, spouse, and Shikha. All in agreement to try [facility] first. Second choice is [facility]. Asked DIMAS/Gracie to coordinate. F2F completed and order obtained. Patient scheduled to be picked up today by [facility] at approximately 3:00pm. No additional d/c needs identified. P: [facility] today. HH arranged through [facility]. DALTON Mcnally
== END 2019-07-22 15:30 | disposition home health service (06) | DRG 375 ==
LOC: ED 12:40 → AC 14:23
PROVIDERS: Internal Medicine; Specialist; Surgery; Admitting Provider Internal Medicine; Emergency Provider Nurse Practitioner Family; PCP Internal Medicine; Visit Provider Internal Medicine
PROC: 0DJ08ZZ Inspection of Upper Intestinal Tract, Via Natural or Artificial Opening Endoscopic (ICD-10-PCS; CPT 43235; principal; 2019-07-19 12:45)
DX: C16.6 Malignant neoplasm of greater curvature of stomach, unspecified (principal); K92.2 Gastrointestinal hemorrhage, unspecified; D62 Acute posthemorrhagic anemia; M87.9 Osteonecrosis, unspecified; F03.90 Unspecified dementia, unspecified severity, without behavioral disturbance, psychotic disturbance, mood disturbance, and anxiety; I48.2 Chronic atrial fibrillation; Z79.01 Long term (current) use of anticoagulants; E87.6 Hypokalemia; I10 Essential (primary) hypertension; M06.9 Rheumatoid arthritis, unspecified; R29.6 Repeated falls; W18.30XA Fall on same level, unspecified, initial encounter
CPT/HCPCS: 36415; 36591; 43239; 70450; 71045; 72070; 73502; 74176; 80048; 80053; 81001; 82272; 82550; 83735; 83880; 84484; 85014; 85018; 85025; 85027; 86850; 86900; 86901; 88305; 88313; 88341; 88342; 93005; 96360; 96361; 97116; 97161; 97165; 97530; 97535; 99232; 99284; 99285; J2704; J3010; J3480; J8610